=== PATIENT | female | born 1980 | race Caucasian/White ===

== ENCOUNTER 2024-03-27 16:46 | Inpatient (IN) ==
[2024-03-27] MEDS: D5 1/2 NS 1,000 ML 1,000 ML IV SCH (18:31)
[2024-03-27 18:32] VITALS: BMI 26.2
[2024-03-27 19:30] LABS: BASOPHILS # (AUTO) 0.1 X10^3/uL (0.0-0.1); BASOPHILS % (AUTO) 0.8 % (0.2-1.0); EOSINOPHILS # (AUTO) 0.2 x10^3/uL (0.0-0.2); EOSINOPHILS % (AUTO) 2.3 % (0.9-2.9); HEMATOCRIT 32.5 % (36.0-47.0); HEMOGLOBIN 10.5 g/dL (12.0-16.0); LYMPHOCYTES # (AUTO) 1.3 X10^3/uL (1.3-2.9); LYMPHOCYTES % (AUTO) 13.9 % (21.0-51.0); MEAN CORPUSCULAR HGB CONC 32.4 g/dL (33.0-35.0); MEAN CORPUSCULAR VOLUME 80.2 fL (80.0-100.0); MEAN PLATELET VOLUME 9.6 fL (7.4-11.0); MONOCYTES # (AUTO) 0.8 x10^3/uL (0.3-0.8); MONOCYTES % (AUTO) 8.5 % (0.0-13.0); NEUTROPHILS # (AUTO) 7.1 x10^3/uL (2.2-4.8); NEUTROPHILS % (AUTO) 74.5 % (42.0-75.0); PLATELET COUNT 291 X10^3/uL (150.0-450.0); RED BLOOD COUNT 4.05 X10^6/uL (3.5-5.4); RED CELL DISTRIBUTION WIDTH 15.7 % (11.6-16.5); WHITE BLOOD COUNT 9.5 X10^3/uL (3.6-10.0)
[2024-03-27 19:44] LABS: ALANINE AMINOTRANSFERASE 20 Units/L (12-78); ALBUMIN 2.7 g/dL (3.4-5.0); ALKALINE PHOSPHATASE 116 Units/L (46-116); AMYLASE 43 Units/L (25-115); ASPARTATE AMINO TRANSFERASE 9 Units/L (15-37); BLOOD UREA NITROGEN 12 mg/dL (7-18); CALCIUM 8.4 mg/dL (8.5-10.1); CARBON DIOXIDE 26.2 mmol/L (21-32); CHLORIDE 98 mmol/L (98-107); COR CA(FOR HYPOALB) 9.4 mg/dL (8.5-10.1); COR NA(FOR HYPERGLY) 135 mmol/L (136-145); CREATININE 0.95 mg/dL (0.55-1.02); GLUCOSE 129 mg/dL (65-99); LIPASE 38 Units/L (16-77); SODIUM 134 mmol/L (136-145); TOTAL PROTEIN 7.7 g/dL (6.4-8.2); eGFR NON BLACK RACES > 60 (>60)
[2024-03-27 20:15] LABS: BILIRUBIN,URINE NEGATIVE (NEGATIVE); BLOOD/HEMOGLOBIN,URINE NEGATIVE (NEGATIVE); GLUCOSE, URINE NEGATIVE (NEGATIVE); KETONES,URINE NEGATIVE (NEGATIVE); LEUKOCYTE ESTERASE ,URINE NEGATIVE (NEGATIVE); NITRITES,URINE NEGATIVE (NEGATIVE); PROTEIN,URINE 1+ (NEGATIVE); UROBILINOGEN,URINE NORMAL (NORMAL)
[2024-03-27 20:22] LABS: APPEARANCE,URINE HAZY (CLEAR); BACTERIA,URINE TRACE /HPF (NEGATIVE); COARSE GRANULAR CASTS,URINE FEW /HPF (NEGATIVE); COLOR,URINE YELLOW (YELLOW); SQUAMOUS EPITHELIAL CELL,UR FEW /HPF (NEGATIVE)
[2024-03-27] MEDS: ZOSYN VIAL 3.375 GRAMS 3.375 G in NS 100 ML IV 100 ML IV SCH (20:48)
[2024-03-27] MEDS: NS 500 ML IV 500 ML IV ONE (20:49)
[2024-03-28] MEDS: TORADOL 30 MG VIAL IVP PRN (04:15)
[2024-03-28 07:15] LABS: BASOPHILS # (AUTO) 0.1 X10^3/uL (0.0-0.1); BASOPHILS % (AUTO) 0.6 % (0.2-1.0); EOSINOPHILS # (AUTO) 0.3 x10^3/uL (0.0-0.2); EOSINOPHILS % (AUTO) 3.2 % (0.9-2.9); HEMOGLOBIN 10.1 g/dL (12.0-16.0); LYMPHOCYTES % (AUTO) 9.9 % (21.0-51.0); MEAN CORPUSCULAR HEMOGLOBIN 26.3 pg (27.0-34.0); MEAN CORPUSCULAR HGB CONC 32.8 g/dL (33.0-35.0); MEAN CORPUSCULAR VOLUME 80.3 fL (80.0-100.0); MEAN PLATELET VOLUME 10.3 fL (7.4-11.0); MONOCYTES # (AUTO) 1.2 x10^3/uL (0.3-0.8); MONOCYTES % (AUTO) 11.7 % (0.0-13.0); NEUTROPHILS # (AUTO) 7.3 x10^3/uL (2.2-4.8); NEUTROPHILS % (AUTO) 74.6 % (42.0-75.0); PLATELET COUNT 294 X10^3/uL (150.0-450.0); RED BLOOD COUNT 3.86 X10^6/uL (3.5-5.4); RED CELL DISTRIBUTION WIDTH 15.5 % (11.6-16.5); WHITE BLOOD COUNT 9.9 X10^3/uL (3.6-10.0)
[2024-03-28 07:32] LABS: ALANINE AMINOTRANSFERASE 17 Units/L (12-78); ALBUMIN 2.5 g/dL (3.4-5.0); ALKALINE PHOSPHATASE 112 Units/L (46-116); ASPARTATE AMINO TRANSFERASE 8 Units/L (15-37); BLOOD UREA NITROGEN 8 mg/dL (7-18); CALCIUM 8.5 mg/dL (8.5-10.1); CHLORIDE 100 mmol/L (98-107); COR CA(FOR HYPOALB) 9.7 mg/dL (8.5-10.1); CREATININE 0.87 mg/dL (0.55-1.02); GLUCOSE 93 mg/dL (65-99); POTASSIUM 3.7 mmol/L (3.5-5.1); SODIUM 134 mmol/L (136-145); TOTAL PROTEIN 7.2 g/dL (6.4-8.2); eGFR NON BLACK RACES > 60 (>60)
--- NOTE | 2024-03-28 15:56 | DR.PROGNOT ---
HOSPITAL PROGRESS NOTE Progress Note for Day of: Progress Note Date: 03/28/24 Chief Complaint Chief Complaint: Still having low-grade fever and having diffuse abdominal pain, poor appetite, no vomiting today. White count is normal as well as liver function tests Moderate erythema around the drainage site, no necrosis or abscess formation.. Past Medical Family Social History Allergies: Allergies bee pollen Allergy (Severe, Verified 03/25/24 15:42) ANAPHALEXIS REACTION adhesive tape [tape (adhesive)] Allergy (Verified 03/25/24 15:42) rash bee venom protein (honey bee) Allergy (Verified 03/25/24 15:42) ANAPHALEXIS REACTION latex Allergy (Verified 03/25/24 15:42) rash shellfish derived Allergy (Verified 03/25/24 15:42) ANAPHALEXIS REACTION Vital Signs Vital Signs: Vital Signs Temperature 98.4 F Temperature 98.0 F Pulse Rate [Radial] 72 Pulse Rate [Radial] 77 Respiratory Rate 16 Respiratory Rate 18 Respiratory Rate 16 Blood Pressure [Right Arm] 110/64 Blood Pressure [Right Arm] 103/58 O2 Sat by Pulse Oximetry 98 O2 Sat by Pulse Oximetry 97 Physical Exam Oriented: Normal Eyes: Normal Ear: Normal Nose: Normal Throat: Normal Respiratory: Normal Speech Pattern: Clear and Unclear Laboratory and Diagnostics 03/28/24 06:27 03/28/24 06:27 Labs: 03/27/24 19:59 Urine,Clean Catch Urine Culture - Preliminary Laboratory WBC 9.9 X10^3/uL (3.6-10.0) 03/28/24 06: RBC 3.86 X10^6/uL (3.5-5.4) 03/28/24 06:27 Hgb 10.1 g/dL (12.0-16.0) L 03/28/24 06:27 Hct 31.0 % (36.0-47.0) L 03/28/24 06:27 MCV 80.3 fL (80.0-100.0) 03/28/24 06:27 MCH 26.3 pg (27.0-34.0) L 03/28/24 06:27 MCHC 32.8 g/dL (33.0-35.0) L 03/28/24 06:27 RDW 15.5 % (11.6-16.5) 03/28/24 06:27 Plt Count 294 X10^3/uL (150.0-450.0) 03/28/24 06:27 MPV 10.3 fL (7.4-11.0) 03/28/24 06:27 Neut % (Auto) 74.6 % (42.0-75.0) 03/28/24 06:27 Lymph % (Auto) 9.9 % (21.0-51.0) L 03/28/24 06:27 [place] % (Auto) 11.7 % (0.0-13.0) 03/28/24 06:27 Eos % (Auto) 3.2 % (0.9-2.9) H 03/28/24 06:27 Baso % (Auto) 0.6 % (0.2-1.0) 03/28/24 06:27 Neut # (Auto) 7.3 x10^3/uL (2.2-4.8) H 03/28/24 06:27 Lymph # (Auto) 1.0 X10^3/uL (1.3-2.9) L 03/28/24 06:27 [place] # (Auto) 1.2 x10^3/uL (0.3-0.8) H 03/28/24 06:27 Eos # (Auto) 0.3 x10^3/uL (0.0-0.2) H 03/28/24 06:27 Baso # (Auto) 0.1 X10^3/uL (0.0-0.1) 03/28/24 06:27 Absolute Nucleated RBC 0.1 /100WBC 03/28/24 06:27 Sodium 134 mmol/L (136-145) L 03/28/24 06:27 Corrected Sodium TNP 03/28/24 06:27 Potassium 3.7 mmol/L (3.5-5.1) 03/28/24 06:27 Chloride 100 mmol/L (98-107) 03/28/24 06:27 Carbon Dioxide 26.0 mmol/L (21-32) 03/28/24 06:27 BUN 8 mg/dL (7-18) 03/28/24 06:27 Creatinine 0.87 mg/dL (0.55-1.02) 03/28/24 06:27 Est GFR (MDRD) Af Amer > 60 (>60) 03/28/24 06:27 Est GFR (MDRD) Non-Af > 60 (>60) 03/28/24 06:27 Glucose 93 mg/dL (65-99) 03/28/24 06:27 Calcium 8.5 mg/dL (8.5-10.1) 03/28/24 06:27 Corrected Calcium 9.7 mg/dL (8.5-10.1) 03/28/24 06:27 Total Bilirubin 0.40 mg/dL (0.2-1.0) 03/28/24 06:27 AST 8 Units/L (15-37) L 03/28/24 06:27 ALT 17 Units/L (12-78) 03/28/24 06:27 Alkaline Phosphatase 112 Units/L (46-116) 03/28/24 06:27 Total Protein 7.2 g/dL (6.4-8.2) 03/28/24 06:27 Albumin 2.5 g/dL (3.4-5.0) L 03/28/24 06:27 Globulin 4.7 g/dL (2.5-4.5) H 03/28/24 06:27 Albumin/Globulin Ratio 0.5 Ratio (1.1-2.1) L 03/28/24 06:27 Amylase 43 Units/L (25-115) 03/27/24 19:12 Lipase 38 Units/L (16-77) 03/27/24 19:12 Specimen Type Clean catch urine 03/27/24 19:59 Urine Color Yellow (YELLOW) 03/27/24 19:59 Urine Appearance Hazy (CLEAR) 03/27/24 19:59 Urine pH 5.0 (5.0 - 8.0) 03/27/24 19:59 Ur Specific [place] 1.015 (1.000-1.030) 03/27/24 19:59 Urine Protein 1+ (NEGATIVE) 03/27/24 19:59 Urine Glucose (UA) Negative (NEGATIVE) 03/27/24 19:59 Urine Ketones Negative (NEGATIVE) 03/27/24 19:59 Urine Blood Negative (NEGATIVE) 03/27/24 19:59 Urine Nitrite Negative (NEGATIVE) 03/27/24 19:59 Urine Bilirubin Negative (NEGATIVE) 03/27/24 19:59 Urine Urobilinogen Normal (NORMAL) 03/27/24 19:59 Ur Leukocyte Esterase Negative (NEGATIVE) 03/27/24 19:59 Urine RBC 3-5 /HPF (0-3) A 03/27/24 19:59 Urine WBC 0-2 /HPF (0-5) 03/27/24 19:59 Ur Squamous Epith Cells Few /HPF (NEGATIVE) 03/27/24 19:59 Amorphous Sediment 1+ /HPF (NEGATIVE) 03/27/24 19:59 Urine Bacteria Trace /HPF (NEGATIVE) 03/27/24 19:59 Coarse Granular Casts Few /HPF (NEGATIVE) 03/27/24 19:59 Urine Mucus Moderate /HPF (NEGATIVE) 03/27/24 19:59 Ur Culture Indicated? No/not indicated 03/27/24 19:59 SARS-CoV-2 (PCR) Negative (NEGATIVE) 03/27/24 18:25 Influenza Type A (PCR) Negative (NEGATIVE) 03/27/24 18:25 Influenza Type B (PCR) Negative (NEGATIVE) 03/27/24 18:25 RSV (PCR) Negative (NEGATIVE) 03/27/24 18:25 Assessment and Plan 1: Status post ERCP, sphincterotomy and stenting. MICHELLE was removed with subsequent low-grade fever. Moderate cellulitis around the drainage site. Same antibiotics and advance diet.
[2024-03-28] MEDS: ULTRAM PO PRN (17:09)
[2024-03-29 06:49] LABS: BASOPHILS % (AUTO) 0.5 % (0.2-1.0); EOSINOPHILS # (AUTO) 0.5 x10^3/uL (0.0-0.2); EOSINOPHILS % (AUTO) 6.4 % (0.9-2.9); HEMATOCRIT 28.5 % (36.0-47.0); HEMOGLOBIN 9.4 g/dL (12.0-16.0); LYMPHOCYTES # (AUTO) 1.2 X10^3/uL (1.3-2.9); LYMPHOCYTES % (AUTO) 14.8 % (21.0-51.0); MEAN CORPUSCULAR HEMOGLOBIN 26.6 pg (27.0-34.0); MEAN CORPUSCULAR HGB CONC 33.2 g/dL (33.0-35.0); MEAN CORPUSCULAR VOLUME 80.1 fL (80.0-100.0); MEAN PLATELET VOLUME 10.1 fL (7.4-11.0); MONOCYTES % (AUTO) 12.3 % (0.0-13.0); NEUTROPHILS # (AUTO) 5.5 x10^3/uL (2.2-4.8); PLATELET COUNT 243 X10^3/uL (150.0-450.0); RED BLOOD COUNT 3.55 X10^6/uL (3.5-5.4); RED CELL DISTRIBUTION WIDTH 15.4 % (11.6-16.5); WHITE BLOOD COUNT 8.3 X10^3/uL (3.6-10.0)
[2024-03-29 07:06] LABS: ALANINE AMINOTRANSFERASE 15 Units/L (12-78); ALBUMIN 2.1 g/dL (3.4-5.0); ALKALINE PHOSPHATASE 97 Units/L (46-116); ASPARTATE AMINO TRANSFERASE 10 Units/L (15-37); BLOOD UREA NITROGEN 6 mg/dL (7-18); CARBON DIOXIDE 25.5 mmol/L (21-32); CHLORIDE 102 mmol/L (98-107); COR CA(FOR HYPOALB) 9.5 mg/dL (8.5-10.1); CREATININE 0.87 mg/dL (0.55-1.02); GLUCOSE 94 mg/dL (65-99); MAGNESIUM 1.5 mg/dL (2.0-2.9); POTASSIUM 3.4 mmol/L (3.5-5.1); SODIUM 138 mmol/L (136-145); TOTAL PROTEIN 6.5 g/dL (6.4-8.2); eGFR NON BLACK RACES > 60 (>60)
[2024-03-29] MEDS ORDERED: CONSULT PHARMACY - POTASSIUM & MAGNESIUM XX SCH (08:00)
[2024-03-29] MEDS: K-DUR TAB 20 MEQ PO SCH (09:08)
[2024-03-29] MEDS: MAG-OX TAB PO SCH (09:08)
--- NOTE | 2024-03-29 09:18 | DR.PROGNOT ---
HOSPITAL PROGRESS NOTE Progress Note for Day of: Progress Note Date: 03/26/24 Chief Complaint Chief Complaint: having diffuse abdominal pain, poor appetite, no vomiting today. White count is normal as well as liver function tests Moderate erythema around the drainage site, no necrosis or abscess formation.. Past Medical Family Social History Past Med/Fam/Surg Hx: No changes since H&P Allergies: Allergies bee pollen Allergy (Severe, Verified 03/25/24 15:42) ANAPHALEXIS REACTION adhesive tape [tape (adhesive)] Allergy (Verified 03/25/24 15:42) rash bee venom protein (honey bee) Allergy (Verified 03/25/24 15:42) ANAPHALEXIS REACTION latex Allergy (Verified 03/25/24 15:42) rash shellfish derived Allergy (Verified 03/25/24 15:42) ANAPHALEXIS REACTION Vital Signs Vital Signs: Vital Signs Temperature 97.8 F Temperature 98.5 F Pulse Rate [Radial] 55 Pulse Rate [Radial] 66 Respiratory Rate 18 Respiratory Rate 21 Respiratory Rate 20 Respiratory Rate 22 Respiratory Rate 20 Blood Pressure [Right Arm] 106/56 Blood Pressure [Left Arm] 101/56 O2 Sat by Pulse Oximetry 98 O2 Sat by Pulse Oximetry 97 Physical Exam Oriented: Normal Eyes: Normal Ear: Normal Nose: Normal Throat: Normal Respiratory: Normal GI:Auscultation: Other (soft, flat abdomen ,with diffuse tenderness , BS hypoactive .) Speech Pattern: Clear and Appropriate Laboratory and Diagnostics 03/29/24 05:47 03/29/24 05:47 Labs: 03/27/24 19:59 Urine,Clean Catch Urine Culture - Preliminary Laboratory WBC 8.3 X10^3/uL (3.6-10.0) 03/29/24 05:47 RBC 3.55 X10^6/uL (3.5-5.4) 03/29/24 05:47 Hgb 9.4 g/dL (12.0-16.0) L 03/29/24 05:47 Hct 28.5 % (36.0-47.0) L 03/29/24 05:47 MCV 80.1 fL (80.0-100.0) 03/29/24 05:47 MCH 26.6 pg (27.0-34.0) L 03/29/24 05:47 MCHC 33.2 g/dL (33.0-35.0) 03/29/24 05:47 RDW 15.4 % (11.6-16.5) 03/29/24 05:47 Plt Count 243 X10^3/uL (150.0-450.0) 03/29/24 05:47 MPV 10.1 fL (7.4-11.0) 03/29/24 05:47 Neut % (Auto) 66.0 % (42.0-75.0) 03/29/24 05:47 Lymph % (Auto) 14.8 % (21.0-51.0) L 03/29/24 05:47 [place] % (Auto) 12.3 % (0.0-13.0) 03/29/24 05:47 Eos % (Auto) 6.4 % (0.9-2.9) H 03/29/24 05:47 Baso % (Auto) 0.5 % (0.2-1.0) 03/29/24 05:47 Neut # (Auto) 5.5 x10^3/uL (2.2-4.8) H 03/29/24 05:47 Lymph # (Auto) 1.2 X10^3/uL (1.3-2.9) L 03/29/24 05:47 [place] # (Auto) 1.0 x10^3/uL (0.3-0.8) H 03/29/24 05:47 Eos # (Auto) 0.5 x10^3/uL (0.0-0.2) H 03/29/24 05:47 Baso # (Auto) 0.0 X10^3/uL (0.0-0.1) 03/29/24 05:47 Absolute Nucleated RBC 0.0 /100WBC 03/29/24 05:47 Sodium 138 mmol/L (136-145) 03/29/24 05:47 Corrected Sodium TNP 03/29/24 05:47 Potassium 3.4 mmol/L (3.5-5.1) L 03/29/24 05:47 Chloride 102 mmol/L (98-107) 03/29/24 05:47 Carbon Dioxide 25.5 mmol/L (21-32) 03/29/24 05:47 BUN 6 mg/dL (7-18) L 03/29/24 05:47 Creatinine 0.87 mg/dL (0.55-1.02) 03/29/24 05:47 Est GFR (MDRD) Af Amer > 60 (>60) 03/29/24 05:47 Est GFR (MDRD) Non-Af > 60 (>60) 03/29/24 05:47 Glucose 94 mg/dL (65-99) 03/29/24 05:47 Calcium 8.0 mg/dL (8.5-10.1) L 03/29/24 05:47 Corrected Calcium 9.5 mg/dL (8.5-10.1) 03/29/24 05:47 Magnesium 1.5 mg/dL (2.0-2.9) L 03/29/24 05:47 Total Bilirubin 0.20 mg/dL (0.2-1.0) 03/29/24 05:47 AST 10 Units/L (15-37) L 03/29/24 05:47 ALT 15 Units/L (12-78) 03/29/24 05:47 Alkaline Phosphatase 97 Units/L (46-116) 03/29/24 05:47 Total Protein 6.5 g/dL (6.4-8.2) 03/29/24 05:47 Albumin 2.1 g/dL (3.4-5.0) L 03/29/24 05:47 Globulin 4.4 g/dL (2.5-4.5) 03/29/24 05:47 Albumin/Globulin Ratio 0.5 Ratio (1.1-2.1) L 03/29/24 05:47 Amylase 43 Units/L (25-115) 03/27/24 19:12 Lipase 38 Units/L (16-77) 03/27/24 19:12 Specimen Type Clean catch urine 03/27/24 19:59 Urine Color Yellow (YELLOW) 03/27/24 19:59 Urine Appearance Hazy (CLEAR) 03/27/24 19:59 Urine pH 5.0 (5.0 - 8.0) 03/27/24 19:59 Ur Specific Ages [place] 1.015 (1.000-1.030) 03/27/24 19:59 Urine Protein 1+ (NEGATIVE) 03/27/24 19:59 Urine Glucose (UA) Negative (NEGATIVE) 03/27/24 19:59 Urine Ketones Negative (NEGATIVE) 03/27/24 19:59 Urine Blood Negative (NEGATIVE) 03/27/24 19:59 Urine Nitrite Negative (NEGATIVE) 03/27/24 19:59 Urine Bilirubin Negative (NEGATIVE) 03/27/24 19:59 Urine Urobilinogen Normal (NORMAL) 03/27/24 19:59 Ur Leukocyte Esterase Negative (NEGATIVE) 03/27/24 19:59 Urine RBC 3-5 /HPF (0-3) A 03/27/24 19:59 Urine WBC 0-2 /HPF (0-5) 03/27/24 19:59 Ur Squamous Epith Cells Few /HPF (NEGATIVE) 03/27/24 19:59 Amorphous Sediment 1+ /HPF (NEGATIVE) 03/27/24 19:59 Urine Bacteria Trace /HPF (NEGATIVE) 03/27/24 19:59 Coarse Granular Casts Few /HPF (NEGATIVE) 03/27/24 19:59 Urine Mucus Moderate /HPF (NEGATIVE) 03/27/24 19:59 Ur Culture Indicated? No/not indicated 03/27/24 19:59 SARS-CoV-2 (PCR) Negative (NEGATIVE) 03/27/24 18:25 Influenza Type A (PCR) Negative (NEGATIVE) 03/27/24 18:25 Influenza Type B (PCR) Negative (NEGATIVE) 03/27/24 18:25 RSV (PCR) Negative (NEGATIVE) 03/27/24 18:25 Assessment and Plan 1: Status post ERCP, sphincterotomy and stenting. MICHELLE was removed with subsequent low-grade fever. Moderate cellulitis around the drainage site. Same antibiotics. repeat U/A today .
[2024-03-30 05:55] LABS: BASOPHILS % (AUTO) 0.5 % (0.2-1.0); EOSINOPHILS # (AUTO) 0.5 x10^3/uL (0.0-0.2); EOSINOPHILS % (AUTO) 6.8 % (0.9-2.9); HEMATOCRIT 27.5 % (36.0-47.0); HEMOGLOBIN 9.1 g/dL (12.0-16.0); LYMPHOCYTES # (AUTO) 1.5 X10^3/uL (1.3-2.9); LYMPHOCYTES % (AUTO) 21.8 % (21.0-51.0); MEAN CORPUSCULAR HEMOGLOBIN 26.4 pg (27.0-34.0); MEAN PLATELET VOLUME 9.7 fL (7.4-11.0); MONOCYTES # (AUTO) 0.7 x10^3/uL (0.3-0.8); MONOCYTES % (AUTO) 10.5 % (0.0-13.0); NEUTROPHILS # (AUTO) 4.2 x10^3/uL (2.2-4.8); NEUTROPHILS % (AUTO) 60.4 % (42.0-75.0); PLATELET COUNT 261 X10^3/uL (150.0-450.0); RED BLOOD COUNT 3.44 X10^6/uL (3.5-5.4); RED CELL DISTRIBUTION WIDTH 15.6 % (11.6-16.5)
[2024-03-30 06:09] LABS: ALANINE AMINOTRANSFERASE 15 Units/L (12-78); ALBUMIN 2.1 g/dL (3.4-5.0); ALKALINE PHOSPHATASE 103 Units/L (46-116); ASPARTATE AMINO TRANSFERASE 11 Units/L (15-37); BLOOD UREA NITROGEN 3 mg/dL (7-18); CALCIUM 8.2 mg/dL (8.5-10.1); CARBON DIOXIDE 27.1 mmol/L (21-32); CHLORIDE 104 mmol/L (98-107); COR CA(FOR HYPOALB) 9.7 mg/dL (8.5-10.1); CREATININE 0.78 mg/dL (0.55-1.02); GLUCOSE 91 mg/dL (65-99); MAGNESIUM 1.8 mg/dL (2.0-2.9); POTASSIUM 3.7 mmol/L (3.5-5.1); SODIUM 136 mmol/L (136-145); TOTAL PROTEIN 6.6 g/dL (6.4-8.2); eGFR NON BLACK RACES > 60 (>60)
[2024-03-30] MEDS ORDERED: CONSULT PHARMACY - POTASSIUM & MAGNESIUM XX SCH (07:00)
[2024-03-30] MEDS: K-DUR TAB 20 MEQ PO SCH (09:17)
[2024-03-30] MEDS: MAG-OX TAB PO SCH (09:17)
--- NOTE | 2024-03-30 10:11 | DR.PROGNOT ---
HOSPITAL PROGRESS NOTE Progress Note for Day of: Progress Note Date: 03/30/24 Chief Complaint Chief Complaint: having diffuse abdominal pain, poor appetite, nausea but no vomiting. White count is normal . Hemoglobin is 9.1 normal liver function tests Moderate erythema around the drainage site with mild drainage. No necrosis or abscess formation.. Drainage culture showed gram-positive cocci pending final report. Past Medical Family Social History Past Med/Fam/Surg Hx: No changes since H&P Allergies: Allergies bee pollen Allergy (Severe, Verified 03/25/24 15:42) ANAPHALEXIS REACTION adhesive tape [tape (adhesive)] Allergy (Verified 03/25/24 15:42) rash bee venom protein (honey bee) Allergy (Verified 03/25/24 15:42) ANAPHALEXIS REACTION latex Allergy (Verified 03/25/24 15:42) rash shellfish derived Allergy (Verified 03/25/24 15:42) ANAPHALEXIS REACTION Vital Signs Vital Signs: Vital Signs Temperature 98.0 F Temperature 97.8 F Pulse Rate [Radial] 74 Pulse Rate [Radial] 61 Respiratory Rate 21 Respiratory Rate 21 Respiratory Rate 18 Respiratory Rate 19 Respiratory Rate 21 Blood Pressure [Left Arm] 119/74 Blood Pressure [Left Arm] 112/69 O2 Sat by Pulse Oximetry 98 O2 Sat by Pulse Oximetry 98 Physical Exam Oriented: Normal Eyes: Normal Ear: Normal Nose: Normal Throat: Normal Respiratory: Normal GI:Auscultation: Other (soft, flat abdomen ,with diffuse tenderness , BS hypoactive .) Speech Pattern: Clear and Appropriate Laboratory and Diagnostics 03/30/24 05:41 03/30/24 05:41 Labs: 03/29/24 22:35 Abdomen Wound Gram Stain - Final 03/27/24 19:20 Blood Blood Culture - Preliminary 03/27/24 19:12 Blood Blood Culture - Preliminary 03/27/24 19:59 Urine,Clean Catch Urine Culture - Final Laboratory WBC 7.0 X10^3/uL (3.6-10.0) 03/30/24 05:41 RBC 3.44 X10^6/uL (3.5-5.4) L 03/30/24 05:41 Hgb 9.1 g/dL (12.0-16.0) L 03/30/24 05:41 Hct 27.5 % (36.0-47.0) L 03/30/24 05:41 MCV 80.0 fL (80.0-100.0) 03/30/24 05:41 MCH 26.4 pg (27.0-34.0) L 03/30/24 05:41 MCHC 33.0 g/dL (33.0-35.0) 03/30/24 05:41 RDW 15.6 % (11.6-16.5) 03/30/24 05:41 Plt Count 261 X10^3/uL (150.0-450.0) 03/30/24 05:41 MPV 9.7 fL (7.4-11.0) 03/30/24 05:41 Neut % (Auto) 60.4 % (42.0-75.0) 03/30/24 05:41 Lymph % (Auto) 21.8 % (21.0-51.0) 03/30/24 05:41 [place] % (Auto) 10.5 % (0.0-13.0) 03/30/24 05:41 Eos % (Auto) 6.8 % (0.9-2.9) H 03/30/24 05:41 Baso % (Auto) 0.5 % (0.2-1.0) 03/30/24 05:41 Neut # (Auto) 4.2 x10^3/uL (2.2-4.8) 03/30/24 05:41 Lymph # (Auto) 1.5 X10^3/uL (1.3-2.9) 03/30/24 05:41 [place] # (Auto) 0.7 x10^3/uL (0.3-0.8) 03/30/24 05:41 Eos # (Auto) 0.5 x10^3/uL (0.0-0.2) H 03/30/24 05:41 Baso # (Auto) 0.0 X10^3/uL (0.0-0.1) 03/30/24 05:41 Absolute Nucleated RBC 0.1 /100WBC 03/30/24 05:41 Sodium 136 mmol/L (136-145) 03/30/24 05:41 Corrected Sodium TNP 03/30/24 05:41 Potassium 3.7 mmol/L (3.5-5.1) 03/30/24 05:41 Chloride 104 mmol/L (98-107) 03/30/24 05:41 Carbon Dioxide 27.1 mmol/L (21-32) 03/30/24 05:41 BUN 3 mg/dL (7-18) L 03/30/24 05:41 Creatinine 0.78 mg/dL (0.55-1.02) 03/30/24 05:41 Est GFR (MDRD) Af Amer > 60 (>60) 03/30/24 05:41 Est GFR (MDRD) Non-Af > 60 (>60) 03/30/24 05:41 Glucose 91 mg/dL (65-99) 03/30/24 05:41 Calcium 8.2 mg/dL (8.5-10.1) L 03/30/24 05:41 Corrected Calcium 9.7 mg/dL (8.5-10.1) 03/30/24 05:41 Magnesium 1.8 mg/dL (2.0-2.9) L 03/30/24 05:41 Total Bilirubin 0.10 mg/dL (0.2-1.0) L 03/30/24 05:41 AST 11 Units/L (15-37) L 03/30/24 05:41 ALT 15 Units/L (12-78) 03/30/24 05:41 Alkaline Phosphatase 103 Units/L (46-116) 03/30/24 05:41 Total Protein 6.6 g/dL (6.4-8.2) 03/30/24 05:41 Albumin 2.1 g/dL (3.4-5.0) L 03/30/24 05:41 Globulin 4.5 g/dL (2.5-4.5) 03/30/24 05:41 Albumin/Globulin Ratio 0.5 Ratio (1.1-2.1) L 03/30/24 05:41 Amylase 43 Units/L (25-115) 03/27/24 19:12 Lipase 38 Units/L (16-77) 03/27/24 19:12 Specimen Type Clean catch urine 03/27/24 19:59 Urine Color Yellow (YELLOW) 03/27/24 19:59 Urine Appearance Hazy (CLEAR) 03/27/24 19:59 Urine pH 5.0 (5.0 - 8.0) 03/27/24 19:59 Ur Specific [place] 1.015 (1.000-1.030) 03/27/24 19:59 Urine Protein 1+ (NEGATIVE) 03/27/24 19:59 Urine Glucose (UA) Negative (NEGATIVE) 03/27/24 19:59 Urine Ketones Negative (NEGATIVE) 03/27/24 19:59 Urine Blood Negative (NEGATIVE) 03/27/24 19:59 Urine Nitrite Negative (NEGATIVE) 03/27/24 19:59 Urine Bilirubin Negative (NEGATIVE) 03/27/24 19:59 Urine Urobilinogen Normal (NORMAL) 03/27/24 19:59 Ur Leukocyte Esterase Negative (NEGATIVE) 03/27/24 19:59 Urine RBC 3-5 /HPF (0-3) A 03/27/24 19:59 Urine WBC 0-2 /HPF (0-5) 03/27/24 19:59 Ur Squamous Epith Cells Few /HPF (NEGATIVE) 03/27/24 19:59 Amorphous Sediment 1+ /HPF (NEGATIVE) 03/27/24 19:59 Urine Bacteria Trace /HPF (NEGATIVE) 03/27/24 19:59 Coarse Granular Casts Few /HPF (NEGATIVE) 03/27/24 19:59 Urine Mucus Moderate /HPF (NEGATIVE) 03/27/24 19:59 Ur Culture Indicated? No/not indicated 03/27/24 19:59 SARS-CoV-2 (PCR) Negative (NEGATIVE) 03/27/24 18:25 Influenza Type A (PCR) Negative (NEGATIVE) 03/27/24 18:25 Influenza Type B (PCR) Negative (NEGATIVE) 03/27/24 18:25 RSV (PCR) Negative (NEGATIVE) 03/27/24 18:25 Assessment and Plan 1: Status post ERCP, sphincterotomy and stenting. Moderate cellulitis around the drainage site. Same antibiotics. repeat U/A today .
[2024-03-30 13:10] LABS: BILIRUBIN,URINE NEGATIVE (NEGATIVE); BLOOD/HEMOGLOBIN,URINE 5+ (NEGATIVE); GLUCOSE, URINE NEGATIVE (NEGATIVE); KETONES,URINE NEGATIVE (NEGATIVE); LEUKOCYTE ESTERASE ,URINE NEGATIVE (NEGATIVE); NITRITES,URINE NEGATIVE (NEGATIVE); PROTEIN,URINE NEGATIVE (NEGATIVE); UROBILINOGEN,URINE NORMAL (NORMAL)
[2024-03-30 13:18] LABS: APPEARANCE,URINE SLIGHTLY HAZY (CLEAR); COLOR,URINE PALE YELLOW (YELLOW)
[2024-03-30 13:19] LABS: BACTERIA,URINE TRACE /HPF (NEGATIVE); RBC,URINE TNTC /HPF (0-3); SQUAMOUS EPITHELIAL CELL,UR RARE /HPF (NEGATIVE)
[2024-03-30] MEDS: LOMOTIL PO PRN (15:33)
[2024-03-30] MEDS: ZOFRAN INJ 4 MG VIAL IVP PRN (15:34)
[2024-03-30] MEDS: TYLENOL 325 MG TAB PO PRN (22:02)
[2024-03-31] MEDS: NS 250 ML IV 25 ML IV PRN (05:05)
[2024-03-31 06:25] LABS: BASOPHILS # (AUTO) 0.1 X10^3/uL (0.0-0.1); BASOPHILS % (AUTO) 0.8 % (0.2-1.0); EOSINOPHILS # (AUTO) 0.5 x10^3/uL (0.0-0.2); EOSINOPHILS % (AUTO) 8.2 % (0.9-2.9); HEMATOCRIT 27.2 % (36.0-47.0); HEMOGLOBIN 8.9 g/dL (12.0-16.0); LYMPHOCYTES # (AUTO) 1.5 X10^3/uL (1.3-2.9); MEAN CORPUSCULAR HEMOGLOBIN 26.3 pg (27.0-34.0); MEAN CORPUSCULAR HGB CONC 32.8 g/dL (33.0-35.0); MEAN CORPUSCULAR VOLUME 80.2 fL (80.0-100.0); MEAN PLATELET VOLUME 10.2 fL (7.4-11.0); MONOCYTES # (AUTO) 0.7 x10^3/uL (0.3-0.8); MONOCYTES % (AUTO) 10.6 % (0.0-13.0); NEUTROPHILS # (AUTO) 3.8 x10^3/uL (2.2-4.8); NEUTROPHILS % (AUTO) 57.4 % (42.0-75.0); PLATELET COUNT 273 X10^3/uL (150.0-450.0); RED BLOOD COUNT 3.39 X10^6/uL (3.5-5.4); RED CELL DISTRIBUTION WIDTH 15.3 % (11.6-16.5); WHITE BLOOD COUNT 6.6 X10^3/uL (3.6-10.0)
[2024-03-31 06:34] LABS: ALANINE AMINOTRANSFERASE 15 Units/L (12-78); ALBUMIN 2.2 g/dL (3.4-5.0); ALKALINE PHOSPHATASE 114 Units/L (46-116); ASPARTATE AMINO TRANSFERASE 12 Units/L (15-37); BLOOD UREA NITROGEN 2 mg/dL (7-18); CALCIUM 8.1 mg/dL (8.5-10.1); CHLORIDE 102 mmol/L (98-107); COR CA(FOR HYPOALB) 9.5 mg/dL (8.5-10.1); CREATININE 0.84 mg/dL (0.55-1.02); GLUCOSE 84 mg/dL (65-99); MAGNESIUM 1.9 mg/dL (2.0-2.9); POTASSIUM 3.4 mmol/L (3.5-5.1); SODIUM 135 mmol/L (136-145); TOTAL PROTEIN 6.7 g/dL (6.4-8.2); eGFR NON BLACK RACES > 60 (>60)
[2024-03-31] MEDS ORDERED: CONSULT PHARMACY - POTASSIUM & MAGNESIUM XX SCH (07:00)
[2024-03-31] MEDS: MAG-OX TAB PO SCH (08:21)
[2024-03-31] MEDS: K-DUR TAB 20 MEQ PO SCH (08:21)
--- NOTE | 2024-03-31 10:03 | DR.PROGNOT ---
HOSPITAL PROGRESS NOTE Progress Note for Day of: Progress Note Date: 03/31/24 Chief Complaint Chief Complaint: having diffuse abdominal pain, poor appetite, nausea but no vomiting. drainage from RUQ is positive for MRSA .. White count is normal 6.6. Hemoglobin is 8.9 normal liver function tests.K 3.4.. MG 1.9 Moderate erythema around the drainage site with mild drainage. No necrosis or abscess formation.. Past Medical Family Social History Past Med/Fam/Surg Hx: No changes since H&P Allergies: Allergies bee pollen Allergy (Severe, Verified 03/25/24 15:42) ANAPHALEXIS REACTION adhesive tape [tape (adhesive)] Allergy (Verified 03/25/24 15:42) rash bee venom protein (honey bee) Allergy (Verified 03/25/24 15:42) ANAPHALEXIS REACTION latex Allergy (Verified 03/25/24 15:42) rash shellfish derived Allergy (Verified 03/25/24 15:42) ANAPHALEXIS REACTION Vital Signs Vital Signs: Vital Signs Temperature 97.8 F Temperature 98.2 F Pulse Rate [Radial] 69 Pulse Rate [Radial] 97 Respiratory Rate 18 Respiratory Rate 19 Respiratory Rate 21 Respiratory Rate 21 Blood Pressure [Left Arm] 119/72 Blood Pressure [Left Arm] 103/65 O2 Sat by Pulse Oximetry 96 O2 Sat by Pulse Oximetry 100 Physical Exam Oriented: Normal Eyes: Normal Ear: Normal Nose: Normal Throat: Normal Respiratory: Normal GI:Auscultation: Other (soft, flat abdomen ,with diffuse tenderness , BS hypoactive .) Speech Pattern: Clear and Appropriate Laboratory and Diagnostics 03/31/24 05:27 03/31/24 05:27 Labs: 03/29/24 22:35 Abdomen Wound Gram Stain - Final 03/29/24 22:35 Abdomen Wound Culture - Preliminary Methicillin Resis Staph Aureus 03/27/24 19:20 Blood Blood Culture - Preliminary 03/27/24 19:12 Blood Blood Culture - Preliminary 03/27/24 19:59 Urine,Clean Catch Urine Culture - Final Laboratory WBC 6.6 X10^3/uL (3.6-10.0) 03/31/24 05:27 RBC 3.39 X10^6/uL (3.5-5.4) L 03/31/24 05:27 Hgb 8.9 g/dL (12.0-16.0) L 03/31/24 05:27 Hct 27.2 % (36.0-47.0) L 03/31/24 05:27 MCV 80.2 fL (80.0-100.0) 03/31/24 05:27 MCH 26.3 pg (27.0-34.0) L 03/31/24 05:27 MCHC 32.8 g/dL (33.0-35.0) L 03/31/24 05:27 RDW 15.3 % (11.6-16.5) 03/31/24 05:27 Plt Count 273 X10^3/uL (150.0-450.0) 03/31/24 05:27 MPV 10.2 fL (7.4-11.0) 03/31/24 05:27 Neut % (Auto) 57.4 % (42.0-75.0) 03/31/24 05:27 Lymph % (Auto) 23.0 % (21.0-51.0) 03/31/24 05:27 [place] % (Auto) 10.6 % (0.0-13.0) 03/31/24 05:27 Eos % (Auto) 8.2 % (0.9-2.9) H 03/31/24 05:27 Baso % (Auto) 0.8 % (0.2-1.0) 03/31/24 05:27 Neut # (Auto) 3.8 x10^3/uL (2.2-4.8) 03/31/24 05:27 Lymph # (Auto) 1.5 X10^3/uL (1.3-2.9) 03/31/24 05:27 [place] # (Auto) 0.7 x10^3/uL (0.3-0.8) 03/31/24 05:27 Eos # (Auto) 0.5 x10^3/uL (0.0-0.2) H 03/31/24 05:27 Baso # (Auto) 0.1 X10^3/uL (0.0-0.1) 03/31/24 05:27 Absolute Nucleated RBC 0.0 /100WBC 03/31/24 05:27 Sodium 135 mmol/L (136-145) L 03/31/24 05:27 Corrected Sodium TNP 03/31/24 05:27 Potassium 3.4 mmol/L (3.5-5.1) L 03/31/24 05:27 Chloride 102 mmol/L (98-107) 03/31/24 05:27 Carbon Dioxide 28.0 mmol/L (21-32) 03/31/24 05:27 BUN 2 mg/dL (7-18) L 03/31/24 05:27 Creatinine 0.84 mg/dL (0.55-1.02) 03/31/24 05:27 Est GFR (MDRD) Af Amer > 60 (>60) 03/31/24 05:27 Est GFR (MDRD) Non-Af > 60 (>60) 03/31/24 05:27 Glucose 84 mg/dL (65-99) 03/31/24 05:27 Calcium 8.1 mg/dL (8.5-10.1) L 03/31/24 05:27 Corrected Calcium 9.5 mg/dL (8.5-10.1) 03/31/24 05:27 Magnesium 1.9 mg/dL (2.0-2.9) L 03/31/24 05:27 Total Bilirubin 0.20 mg/dL (0.2-1.0) 03/31/24 05:27 AST 12 Units/L (15-37) L 03/31/24 05:27 ALT 15 Units/L (12-78) 03/31/24 05:27 Alkaline Phosphatase 114 Units/L (46-116) 03/31/24 05:27 Total Protein 6.7 g/dL (6.4-8.2) 03/31/24 05:27 Albumin 2.2 g/dL (3.4-5.0) L 03/31/24 05:27 Globulin 4.5 g/dL (2.5-4.5) 03/31/24 05:27 Albumin/Globulin Ratio 0.5 Ratio (1.1-2.1) L 03/31/24 05:27 Amylase 43 Units/L (25-115) 03/27/24 19:12 Lipase 38 Units/L (16-77) 03/27/24 19:12 Specimen Type Clean catch urine 03/30/24 12:44 Urine Color Pale yellow (YELLOW) 03/30/24 12:44 Urine Appearance Slightly hazy (CLEAR) 03/30/24 12:44 Urine pH 7.0 (5.0 - 8.0) 03/30/24 12:44 Ur Specific [place] 1.010 (1.000-1.030) 03/30/24 12:44 Urine Protein Negative (NEGATIVE) 03/30/24 12:44 Urine Glucose (UA) Negative (NEGATIVE) 03/30/24 12:44 Urine Ketones Negative (NEGATIVE) 03/30/24 12:44 Urine Blood 5+ (NEGATIVE) 03/30/24 12:44 Urine Nitrite Negative (NEGATIVE) 03/30/24 12:44 Urine Bilirubin Negative (NEGATIVE) 03/30/24 12:44 Urine Urobilinogen Normal (NORMAL) 03/30/24 12:44 Ur Leukocyte Esterase Negative (NEGATIVE) 03/30/24 12:44 Urine RBC Tntc /HPF (0-3) A 03/30/24 12:44 Urine WBC None seen /HPF (0-5) 03/30/24 12:44 Ur Squamous Epith Cells Rare /HPF (NEGATIVE) 03/30/24 12:44 Amorphous Sediment 1+ /HPF (NEGATIVE) 03/27/24 19:59 Urine Bacteria Trace /HPF (NEGATIVE) 03/30/24 12:44 Coarse Granular Casts Few /HPF (NEGATIVE) 03/27/24 19:59 Urine Mucus Moderate /HPF (NEGATIVE) 03/27/24 19:59 Ur Culture Indicated? No/not indicated 03/30/24 12:44 SARS-CoV-2 (PCR) Negative (NEGATIVE) 03/27/24 18:25 Influenza Type A (PCR) Negative (NEGATIVE) 03/27/24 18:25 Influenza Type B (PCR) Negative (NEGATIVE) 03/27/24 18:25 RSV (PCR) Negative (NEGATIVE) 03/27/24 18:25 Assessment and Plan 1: Status post ERCP, sphincterotomy and stenting. MRSA with Moderate cellulitis around the drainage site. on IV Clindamycin .
[2024-03-31] MEDS: CLEOCIN 600 MG IV PREMIX 600 MG/50 ML BAG IV SCH (10:23)
[2024-03-31] MEDS: VSL#3 PROBIOTIC CAP 112.5 B PO SCH (21:01)
[2024-04-01 06:38] LABS: BASOPHILS % (AUTO) 0.7 % (0.2-1.0); EOSINOPHILS # (AUTO) 0.7 x10^3/uL (0.0-0.2); EOSINOPHILS % (AUTO) 9.4 % (0.9-2.9); HEMATOCRIT 28.1 % (36.0-47.0); HEMOGLOBIN 9.4 g/dL (12.0-16.0); LYMPHOCYTES # (AUTO) 1.7 X10^3/uL (1.3-2.9); LYMPHOCYTES % (AUTO) 23.5 % (21.0-51.0); MEAN CORPUSCULAR HEMOGLOBIN 26.6 pg (27.0-34.0); MEAN CORPUSCULAR HGB CONC 33.4 g/dL (33.0-35.0); MEAN CORPUSCULAR VOLUME 79.5 fL (80.0-100.0); MEAN PLATELET VOLUME 10.1 fL (7.4-11.0); MONOCYTES # (AUTO) 0.6 x10^3/uL (0.3-0.8); MONOCYTES % (AUTO) 8.4 % (0.0-13.0); NEUTROPHILS # (AUTO) 4.1 x10^3/uL (2.2-4.8); PLATELET COUNT 277 X10^3/uL (150.0-450.0); RED BLOOD COUNT 3.54 X10^6/uL (3.5-5.4); RED CELL DISTRIBUTION WIDTH 15.3 % (11.6-16.5)
[2024-04-01 06:50] LABS: ALANINE AMINOTRANSFERASE 19 Units/L (12-78); ALBUMIN 2.3 g/dL (3.4-5.0); ALKALINE PHOSPHATASE 121 Units/L (46-116); ASPARTATE AMINO TRANSFERASE 17 Units/L (15-37); BLOOD UREA NITROGEN 3 mg/dL (7-18); CALCIUM 8.3 mg/dL (8.5-10.1); CHLORIDE 101 mmol/L (98-107); COR CA(FOR HYPOALB) 9.7 mg/dL (8.5-10.1); CREATININE 0.82 mg/dL (0.55-1.02); GLUCOSE 87 mg/dL (65-99); MAGNESIUM 2.1 mg/dL (2.0-2.9); POTASSIUM 3.7 mmol/L (3.5-5.1); SODIUM 135 mmol/L (136-145); eGFR NON BLACK RACES > 60 (>60)
[2024-04-01] MEDS ORDERED: CONSULT PHARMACY - POTASSIUM & MAGNESIUM XX SCH (08:00)
[2024-04-01] MEDS ORDERED: POTASSIUM CHLORIDE LIQ PO SCH (08:00)
[2024-04-01] MEDS ORDERED: K-DUR TAB 20 MEQ PO SCH (08:00)
--- NOTE | 2024-04-01 17:03 | DR.PROGNOT ---
HOSPITAL PROGRESS NOTE Progress Note for Day of: Progress Note Date: 04/01/24 Chief Complaint Chief Complaint: Still having diffuse abdominal pain, poor appetite, nausea but no vomiting. drainage from RUQ is positive for MRSA .. White count is normal 7 Hemoglobin is 9.4 normal liver function tests.K 3.4.. MG 1.[address] scan is pending Moderate erythema around the drainage site with mild drainage. No necrosis or abscess formation.. Past Medical Family Social History Past Med/Fam/Surg Hx: No changes since H&P Allergies: Allergies bee pollen Allergy (Severe, Verified 03/25/24 15:42) ANAPHALEXIS REACTION adhesive tape [tape (adhesive)] Allergy (Verified 03/25/24 15:42) rash bee venom protein (honey bee) Allergy (Verified 03/25/24 15:42) ANAPHALEXIS REACTION latex Allergy (Verified 03/25/24 15:42) rash shellfish derived Allergy (Verified 03/25/24 15:42) ANAPHALEXIS REACTION Vital Signs Vital Signs: Vital Signs Temperature 97.6 F Pulse Rate [Radial] 71 Respiratory Rate 18 Respiratory Rate 18 Blood Pressure [Left Arm] 145/83 O2 Sat by Pulse Oximetry 98 Physical Exam Oriented: Normal Eyes: Normal Ear: Normal Nose: Normal Throat: Normal Respiratory: Normal GI:Auscultation: Other (soft, flat abdomen ,with diffuse tenderness , BS hypoactive .) Speech Pattern: Clear and Appropriate Laboratory and Diagnostics 04/01/24 05:23 04/01/24 05:23 Labs: 03/29/24 22:35 Abdomen Wound Gram Stain - Final 03/29/24 22:35 Abdomen Wound Culture - Final Methicillin Resis Staph Aureus Acinetobacter Baumanii/Haemoly 03/27/24 19:20 Blood Blood Culture - Preliminary 03/27/24 19:12 Blood Blood Culture - Preliminary 03/27/24 19:59 Urine,Clean Catch Urine Culture - Final Laboratory WBC 7.0 X10^3/uL (3.6-10.0) 04/01/24 05:23 RBC 3.54 X10^6/uL (3.5-5.4) 04/01/24 05:23 Hgb 9.4 g/dL (12.0-16.0) L 04/01/24 05:23 Hct 28.1 % (36.0-47.0) L 04/01/24 05:23 MCV 79.5 fL (80.0-100.0) L 04/01/24 05:23 MCH 26.6 pg (27.0-34.0) L 04/01/24 05:23 MCHC 33.4 g/dL (33.0-35.0) 04/01/24 05:23 RDW 15.3 % (11.6-16.5) 04/01/24 05:23 Plt Count 277 X10^3/uL (150.0-450.0) 04/01/24 05:23 MPV 10.1 fL (7.4-11.0) 04/01/24 05:23 Neut % (Auto) 58.0 % (42.0-75.0) 04/01/24 05:23 Lymph % (Auto) 23.5 % (21.0-51.0) 04/01/24 05:23 [place] % (Auto) 8.4 % (0.0-13.0) 04/01/24 05:23 Eos % (Auto) 9.4 % (0.9-2.9) H 04/01/24 05:23 Baso % (Auto) 0.7 % (0.2-1.0) 04/01/24 05:23 Neut # (Auto) 4.1 x10^3/uL (2.2-4.8) 04/01/24 05:23 Lymph # (Auto) 1.7 X10^3/uL (1.3-2.9) 04/01/24 05:23 [place] # (Auto) 0.6 x10^3/uL (0.3-0.8) 04/01/24 05:23 Eos # (Auto) 0.7 x10^3/uL (0.0-0.2) H 04/01/24 05:23 Baso # (Auto) 0.0 X10^3/uL (0.0-0.1) 04/01/24 05:23 Absolute Nucleated RBC 0.1 /100WBC 04/01/24 05:23 Sodium 135 mmol/L (136-145) L 04/01/24 05:23 Corrected Sodium TNP 04/01/24 05:23 Potassium 3.7 mmol/L (3.5-5.1) 04/01/24 05:23 Chloride 101 mmol/L (98-107) 04/01/24 05:23 Carbon Dioxide 26.0 mmol/L (21-32) 04/01/24 05:23 BUN 3 mg/dL (7-18) L 04/01/24 05:23 Creatinine 0.82 mg/dL (0.55-1.02) 04/01/24 05:23 Est GFR (MDRD) Af Amer > 60 (>60) 04/01/24 05:23 Est GFR (MDRD) Non-Af > 60 (>60) 04/01/24 05:23 Glucose 87 mg/dL (65-99) 04/01/24 05:23 Calcium 8.3 mg/dL (8.5-10.1) L 04/01/24 05:23 Corrected Calcium 9.7 mg/dL (8.5-10.1) 04/01/24 05:23 Magnesium 2.1 mg/dL (2.0-2.9) 04/01/24 05:23 Total Bilirubin 0.10 mg/dL (0.2-1.0) L 04/01/24 05:23 AST 17 Units/L (15-37) 04/01/24 05:23 ALT 19 Units/L (12-78) 04/01/24 05:23 Alkaline Phosphatase 121 Units/L (46-116) H 04/01/24 05:23 Total Protein 7.0 g/dL (6.4-8.2) 04/01/24 05:23 Albumin 2.3 g/dL (3.4-5.0) L 04/01/24 05:23 Globulin 4.7 g/dL (2.5-4.5) H 04/01/24 05:23 Albumin/Globulin Ratio 0.5 Ratio (1.1-2.1) L 04/01/24 05:23 Amylase 43 Units/L (25-115) 03/27/24 19:12 Lipase 38 Units/L (16-77) 03/27/24 19:12 Specimen Type Clean catch urine 03/30/24 12:44 Urine Color Pale yellow (YELLOW) 03/30/24 12:44 Urine Appearance Slightly hazy (CLEAR) 03/30/24 12:44 Urine pH 7.0 (5.0 - 8.0) 03/30/24 12:44 Ur Specific [place] 1.010 (1.000-1.030) 03/30/24 12:44 Urine Protein Negative (NEGATIVE) 03/30/24 12:44 Urine Glucose (UA) Negative (NEGATIVE) 03/30/24 12:44 Urine Ketones Negative (NEGATIVE) 03/30/24 12:44 Urine Blood 5+ (NEGATIVE) 03/30/24 12:44 Urine Nitrite Negative (NEGATIVE) 03/30/24 12:44 Urine Bilirubin Negative (NEGATIVE) 03/30/24 12:44 Urine Urobilinogen Normal (NORMAL) 03/30/24 12:44 Ur Leukocyte Esterase Negative (NEGATIVE) 03/30/24 12:44 Urine RBC Tntc /HPF (0-3) A 03/30/24 12:44 Urine WBC None seen /HPF (0-5) 03/30/24 12:44 Ur Squamous Epith Cells Rare /HPF (NEGATIVE) 03/30/24 12:44 Amorphous Sediment 1+ /HPF (NEGATIVE) 03/27/24 19:59 Urine Bacteria Trace /HPF (NEGATIVE) 03/30/24 12:44 Coarse Granular Casts Few /HPF (NEGATIVE) 03/27/24 19:59 Urine Mucus Moderate /HPF (NEGATIVE) 03/27/24 19:59 Ur Culture Indicated? No/not indicated 03/30/24 12:44 SARS-CoV-2 (PCR) Negative (NEGATIVE) 03/27/24 18:25 Influenza Type A (PCR) Negative (NEGATIVE) 03/27/24 18:25 Influenza Type B (PCR) Negative (NEGATIVE) 03/27/24 18:25 RSV (PCR) Negative (NEGATIVE) 03/27/24 18:25 Assessment and Plan 1: Status post ERCP, sphincterotomy and stenting. MRSA with Moderate cellulitis around the drainage site. on IV Clindamycin .
--- NOTE | 2024-04-01 22:41 | CT ---
EXAM: ABDOMEN/PELVIS W/O CON HISTORY: POSSIBLE ABDOMINAL ABSCESS AFTER MICHELLE DRAIN; COMPARISON: 03/13/2024. TECHNIQUE: Nonenhanced spiral CT imaging was performed through the abdomen and pelvis and axial, coronal, and sa gittal CT images were generated. FINDINGS: There is bibasilar atelectasis. Heart size is normal. The liver is normal. The gallbladder has bee n removed. There is a tiny pocket of fluid in the gallbladder fossa. The drain has been removed sin ce the earlier study. There is a stent in the common bile duct. Pancreas, spleen, adrenal glands ar e normal. Both kidneys are normal in size without mass, stone, or hydronephrosis. Urinary bladder a nd uterus are normal. There is no adnexal mass. There is some oral contrast in the stomach which is normal in appearance. There is inflammation involving the loops of terminal ileum and there is a fo cus of spiculation and scarring in the pelvis which is adherent to the uterus. The appendix is absen t. There are air-fluid levels in the large bowel but the loops of large bowel are not abnormally dil ated. There are reactive sized mesenteric and retroperitoneal lymph nodes. IMPRESSION: 1. Bibasilar atelectasis. 2. There is a tiny, poorly defined pocket of fluid in the gallbladder fossa measuring up to 1.8 x 3.3 cm in the axial plane by 1.8 cm in the coronal plane. Infection can not be excluded although no en hazel defined abscess henry are identified. 3. There are inflammatory changes in the loops of the ileum and there is a focus of scarring and teth ering in the pelvis. This could be due to Crohn's disease. Correlate with clinical history. Differ ential would include a carcinoid tumor. THIS IS AN ELECTRONICALLY VERIFIED FINAL REPORT 04/01/2024 10:37 PM - Electronically signed by Chaitanya Jacob MD
[2024-04-02 06:25] LABS: BASOPHILS % (AUTO) 0.8 % (0.2-1.0); EOSINOPHILS # (AUTO) 0.6 x10^3/uL (0.0-0.2); EOSINOPHILS % (AUTO) 9.8 % (0.9-2.9); HEMATOCRIT 30.6 % (36.0-47.0); HEMOGLOBIN 9.8 g/dL (12.0-16.0); LYMPHOCYTES % (AUTO) 34.2 % (21.0-51.0); MEAN CORPUSCULAR HEMOGLOBIN 25.6 pg (27.0-34.0); MEAN CORPUSCULAR VOLUME 80.1 fL (80.0-100.0); MEAN PLATELET VOLUME 9.7 fL (7.4-11.0); MONOCYTES # (AUTO) 0.5 x10^3/uL (0.3-0.8); MONOCYTES % (AUTO) 9.2 % (0.0-13.0); NEUTROPHILS # (AUTO) 2.7 x10^3/uL (2.2-4.8); PLATELET COUNT 317 X10^3/uL (150.0-450.0); RED BLOOD COUNT 3.82 X10^6/uL (3.5-5.4); RED CELL DISTRIBUTION WIDTH 15.2 % (11.6-16.5); WHITE BLOOD COUNT 5.8 X10^3/uL (3.6-10.0)
[2024-04-02 06:28] LABS: ALANINE AMINOTRANSFERASE 20 Units/L (12-78); ALBUMIN 2.4 g/dL (3.4-5.0); ALKALINE PHOSPHATASE 119 Units/L (46-116); ASPARTATE AMINO TRANSFERASE 16 Units/L (15-37); BLOOD UREA NITROGEN 1 mg/dL (7-18); CALCIUM 8.5 mg/dL (8.5-10.1); CARBON DIOXIDE 30.8 mmol/L (21-32); CHLORIDE 100 mmol/L (98-107); COR CA(FOR HYPOALB) 9.8 mg/dL (8.5-10.1); CREATININE 0.88 mg/dL (0.55-1.02); GLUCOSE 85 mg/dL (65-99); POTASSIUM 3.9 mmol/L (3.5-5.1); SODIUM 135 mmol/L (136-145); TOTAL PROTEIN 7.4 g/dL (6.4-8.2); eGFR NON BLACK RACES > 60 (>60)
[2024-04-02 06:52] LABS: HYPOCHROMASIA SLIGHT; PLATELET MORPHOLOGY COMMENT NORMAL (NORMAL)
[2024-04-02 09:11] VITALS: RESP 18
[2024-04-02 11:40] VITALS: BP 142/89; PULSE 67; TEMP 98.1; O2SAT 98
== END 2024-04-02 14:10 | disposition home or self-care (01) | DRG 603 ==
LOC: MED/SURG
PROVIDERS: ADMIT Surgery; ATTEND Surgery
DX: J98.11 Atelectasis; R10.31 Right lower quadrant pain; E83.42 Hypomagnesemia; Z16.23 Resistance to quinolones and fluoroquinolones; L03.311 Cellulitis of abdominal wall; T81.49XA Infection following a procedure, other surgical site, initial encounter; Z16.19 Resistance to other specified beta lactam antibiotics; Z59.41 Food insecurity; E87.6 Hypokalemia; Z20.822 Contact with and (suspected) exposure to COVID-19; B96.83 Acinetobacter baumannii as the cause of diseases classified elsewhere; Z16.11 Resistance to penicillins; Z65.8 Other specified problems related to psychosocial circumstances; Z16.29 Resistance to other single specified antibiotic; E87.1 Hypo-osmolality and hyponatremia; Z29.89 Encounter for other specified prophylactic measures; R73.09 Other abnormal glucose; B95.62 Methicillin resistant Staphylococcus aureus infection as the cause of diseases classified elsewhere; Z98.890 Other specified postprocedural states; R50.9 Fever, unspecified

== ENCOUNTER 2024-06-02 13:38 | Inpatient (IN) ==
--- NOTE | 2024-06-02 15:16 | DR.GENAD ---
HPI Time Seen Time Seen by Provider: 06/02/24 15:16 PCP Primary Care Physician: Dr Chavez Complaint/Symptoms Chief Complaint:: Patient states she had a Sandi in February, she states she had stents removed on Sunday. She states last PM she started having abdominal swelling, facial swelling, with nausea and dizziness. Self Treatment fo Chief Complaint: Tylenol 2 tabs po about an hour ago COVID-19 Coronavirus risk:travel/contact w/high risk person: No Has patient experienced Coronavirus symptoms: No Nurses notes reviewed Nurses Notes Review: Yes Source History Provided: Patient Mode of Arrival Mode of Arrival: Ambulatory Timing Onset of Chief Complaint: 06/01/24 PMH PMH Past Medical History: Yes Past Medical History: GERD Past Surgical History: Yes Surgical History: Appendectomy, , Cholecystectomy and Other Family History History of Family Medical Conditions: Yes Family Medical History: Diabetes Mellitus, Cancer, [place], Coronary Artery Disease, Sudden Cardiac and Hypertension Social History Does patient currently use any type of tobacco product: No Have you used tobacco products in the last 12 months: No Type of Tobacco Use: None Does any household member use tobacco: No Alcohol Use: None Do you use any recreational Drugs:: No Lives With: Other Lives Where: [facility] Travel Risk Coronavirus risk:travel/contact w/high risk person: No Has patient experienced Coronavirus symptoms: No Infectious screening In the last 2 months have you had wt loss of >10#?: NO Have you had fever, night sweats or hemotysis?: No Have you traveled outside the country in the last 6 months?: No Isolation: Standard PE Vital Signs Vitals: Vital Signs Temperature 98.3 F Pulse Rate [Left Brachial] 65 Pulse Rate 78 Respiratory Rate 18 Respiratory Rate 18 Respiratory Rate 16 Blood Pressure [Left Arm] 127/83 Blood Pressure 139/94 O2 Sat by Pulse Oximetry 98 O2 Sat by Pulse Oximetry 100 ROR Labs Reviewed 06/02/24 15:30 06/02/24 15:30 Laboratory: WBC 8.5 X10^3/uL (3.6-10.0) 06/02/24 15:30 RBC 4.36 X10^6/uL (3.5-5.4) 06/02/24 15:30 Hgb 11.6 g/dL (12.0-16.0) L 06/02/24 15:30 Hct 34.8 % (36.0-47.0) L 06/02/24 15:30 MCV 79.8 fL (80.0-100.0) L 06/02/24 15:30 MCH 26.7 pg (27.0-34.0) L 06/02/24 15:30 MCHC 33.4 g/dL (33.0-35.0) 06/02/24 15:30 RDW 17.0 % (11.6-16.5) H 06/02/24 15:30 Plt Count 262 X10^3/uL (150.0-450.0) 06/02/24 15:30 MPV 9.1 fL (7.4-11.0) 06/02/24 15:30 Neut % (Auto) 63.3 % (42.0-75.0) 06/02/24 15:30 Lymph % (Auto) 25.8 % (21.0-51.0) 06/02/24 15:30 [place] % (Auto) 8.0 % (0.0-13.0) 06/02/24 15:30 Eos % (Auto) 1.5 % (0.9-2.9) 06/02/24 15:30 Baso % (Auto) 1.4 % (0.2-1.0) H 06/02/24 15:30 Neut # (Auto) 5.4 x10^3/uL (2.2-4.8) H 06/02/24 15:30 Lymph # (Auto) 2.2 X10^3/uL (1.3-2.9) 06/02/24 15:30 [place] # (Auto) 0.7 x10^3/uL (0.3-0.8) 06/02/24 15:30 Eos # (Auto) 0.1 x10^3/uL (0.0-0.2) 06/02/24 15:30 Baso # (Auto) 0.1 X10^3/uL (0.0-0.1) 06/02/24 15:30 Absolute Nucleated RBC 0.1 /100WBC 06/02/24 15:30 Sodium 141 mmol/L (136-145) 06/02/24 15:30 Corrected Sodium TNP 06/02/24 15:30 Potassium 3.6 mmol/L (3.5-5.1) 06/02/24 15:30 Chloride 105 mmol/L (98-107) 06/02/24 15:30 Carbon Dioxide 27.7 mmol/L (21-32) 06/02/24 15:30 BUN 10 mg/dL (7-18) 06/02/24 15:30 Creatinine 0.90 mg/dL (0.55-1.02) 06/02/24 15:30 Est GFR (MDRD) Af Amer > 60 (>60) 06/02/24 15:30 Est GFR (MDRD) Non-Af > 60 (>60) 06/02/24 15:30 Glucose 84 mg/dL (65-99) 06/02/24 15:30 Calcium 8.7 mg/dL (8.5-10.1) 06/02/24 15:30 Corrected Calcium 9.3 mg/dL (8.5-10.1) 06/02/24 15:30 Total Bilirubin 0.40 mg/dL (0.2-1.0) 06/02/24 15:30 AST 18 Units/L (15-37) 06/02/24 15:30 ALT 20 Units/L (12-78) 06/02/24 15:30 Alkaline Phosphatase 95 Units/L (46-116) 06/02/24 15:30 Total Protein 7.7 g/dL (6.4-8.2) 06/02/24 15:30 Albumin 3.3 g/dL (3.4-5.0) L 06/02/24 15:30 Globulin 4.4 g/dL (2.5-4.5) 06/02/24 15:30 Albumin/Globulin Ratio 0.8 Ratio (1.1-2.1) L 06/02/24 15:30 Amylase 46 Units/L (25-115) 06/02/24 15:30 Lipase 32 Units/L (16-77) 06/02/24 15:30 Specimen Type Clean catch urine 06/02/24 16:31 Urine Color Yellow (YELLOW) 06/02/24 16:31 Urine Appearance Clear (CLEAR) 06/02/24 16:31 Urine pH 6.0 (5.0 - 8.0) 06/02/24 16:31 Ur Specific [place] 1.030 (1.000-1.030) 06/02/24 16:31 Urine Protein Negative (NEGATIVE) 06/02/24 16:31 Urine Glucose (UA) Negative (NEGATIVE) 06/02/24 16:31 Urine Ketones 2+ (NEGATIVE) 06/02/24 16:31 Urine Blood Negative (NEGATIVE) 06/02/24 16:31 Urine Nitrite Negative (NEGATIVE) 06/02/24 16:31 Urine Bilirubin Negative (NEGATIVE) 06/02/24 16:31 Urine Urobilinogen Normal (NORMAL) 06/02/24 16:31 Ur Leukocyte Esterase Negative (NEGATIVE) 06/02/24 16:31 Opioid Opioid Risk Tool Age (Rubén box if 16-45): Yes History of Preadolescent Sexual Abuse: No Total: 1 Total Score Risk Category: Low Risk Copyright: Boni FLORENCE predicting aberrant behaviors Discharge Plan Diagnosis Discharge Problem: Partial obstruction of small intestine, Abdominal distention, Nausea, Dizziness Discharge Plan Patient Disposition: ADMITTED INPATIENT Condition: Stable Prescriptions: No Action famotidine 20 mg Tablet 20 mg PO BID Health Concerns: Post Hospitalization: new medications and changes needed to prevent readmission or further decline. Pt educated and given instructions on all concerns. Plan of Treatment: Continue with present treatment and follow up plan. Pt is to keep follow up appointment as instructed and take medications as ordered. Orders to Discharge Patient Discharge Orders: Transfer (Routine); Ordered 06/02/24 Ordered By: JHONATAN MONAE Follow ups/Referrals Follow ups/Referrals: NFD,None [Primary Care Provider] - 3 days Instructions Stand Alone Forms: Post Hospital Follow Up Care
[2024-06-02 15:42] LABS: BASOPHILS # (AUTO) 0.1 X10^3/uL (0.0-0.1); BASOPHILS % (AUTO) 1.4 % (0.2-1.0); EOSINOPHILS # (AUTO) 0.1 x10^3/uL (0.0-0.2); EOSINOPHILS % (AUTO) 1.5 % (0.9-2.9); HEMATOCRIT 34.8 % (36.0-47.0); HEMOGLOBIN 11.6 g/dL (12.0-16.0); LYMPHOCYTES # (AUTO) 2.2 X10^3/uL (1.3-2.9); LYMPHOCYTES % (AUTO) 25.8 % (21.0-51.0); MEAN CORPUSCULAR HEMOGLOBIN 26.7 pg (27.0-34.0); MEAN CORPUSCULAR HGB CONC 33.4 g/dL (33.0-35.0); MEAN CORPUSCULAR VOLUME 79.8 fL (80.0-100.0); MEAN PLATELET VOLUME 9.1 fL (7.4-11.0); MONOCYTES # (AUTO) 0.7 x10^3/uL (0.3-0.8); NEUTROPHILS # (AUTO) 5.4 x10^3/uL (2.2-4.8); NEUTROPHILS % (AUTO) 63.3 % (42.0-75.0); PLATELET COUNT 262 X10^3/uL (150.0-450.0); RED BLOOD COUNT 4.36 X10^6/uL (3.5-5.4); WHITE BLOOD COUNT 8.5 X10^3/uL (3.6-10.0)
[2024-06-02 15:53] LABS: ALANINE AMINOTRANSFERASE 20 Units/L (12-78); ALBUMIN 3.3 g/dL (3.4-5.0); ALKALINE PHOSPHATASE 95 Units/L (46-116); AMYLASE 46 Units/L (25-115); ASPARTATE AMINO TRANSFERASE 18 Units/L (15-37); BLOOD UREA NITROGEN 10 mg/dL (7-18); CALCIUM 8.7 mg/dL (8.5-10.1); CARBON DIOXIDE 27.7 mmol/L (21-32); CHLORIDE 105 mmol/L (98-107); COR CA(FOR HYPOALB) 9.3 mg/dL (8.5-10.1); GLUCOSE 84 mg/dL (65-99); LIPASE 32 Units/L (16-77); POTASSIUM 3.6 mmol/L (3.5-5.1); SODIUM 141 mmol/L (136-145); TOTAL PROTEIN 7.7 g/dL (6.4-8.2); eGFR NON BLACK RACES > 60 (>60)
[2024-06-02 16:42] LABS: BILIRUBIN,URINE NEGATIVE (NEGATIVE); BLOOD/HEMOGLOBIN,URINE NEGATIVE (NEGATIVE); GLUCOSE, URINE NEGATIVE (NEGATIVE); KETONES,URINE 2+ (NEGATIVE); LEUKOCYTE ESTERASE ,URINE NEGATIVE (NEGATIVE); NITRITES,URINE NEGATIVE (NEGATIVE); PROTEIN,URINE NEGATIVE (NEGATIVE); UROBILINOGEN,URINE NORMAL (NORMAL)
[2024-06-02 16:44] LABS: APPEARANCE,URINE CLEAR (CLEAR); COLOR,URINE YELLOW (YELLOW)
--- NOTE | 2024-06-02 16:45 | CT ---
EXAM: CT ABDOMEN AND PELVIS WITHOUT INTRAVENOUS CONTRASTHISTORY: Abdominal pain.TECHNIQUE: Spiral axial CT images are obtained through the abdomen and pelvis without the administration of intravenous contrast. Additional coronal and sagittal reformatted images are reconstructed.DOSIMETRY: Total DLP 237.28 mGycm; CTDI 4.48 mGyCOMPARISON: CT abdomen pelvis dated April 01, 2024.FINDINGS:GASTROINTESTINAL TRACT: There is up to 9.1 mm circumferential thickening of an approximately 3 cm dilated fluid-filled small bowel loop in the central/left pelvis, with severe tapered luminal narrowing at associated mesenteric masslike conglomerate (approximately 3.3 cm x 2.5 cm) and associated mesenteric fat stranding and tethering, and mild perienteric stranding/edema; relatively stable findings (except development of perienteric edema); DDx includes sequela of inflammatory bowel disease (e.g. Crohn's disease) complicated by postinflammatory stricture and/or adhesion, with partial low-grade SBO; cannot rule out neoplastic disease (e.g. carcinoid tumor) with associated small bowel involvement/thickening and partial obstruction. Axial image 57-79; coronal image 17-37; sagittal image 28-47. Clinical correlation is advised. Abundant fecal material is seen within the large bowel loops; nonspecific finding; rule out constipation. There is no evidence for bowel herniation, bowel ischemia, colitis or diverticulitis.GENITOURINARY SYSTEM: The kidneys are unremarkable. There is no ureteral calculus or stigmata of obstructive uropathy. The urinary bladder is grossly unremarkable for a non-dedicated exam.REPRODUCTIVE SYSTEM: The uterus and adnexa appear grossly unremarkable for a CT scan. Consider follow-up dedicated imaging as clinically warranted. Tampon noted in situ.BILIARY SYSTEM: The patient is status post cholecystectomy (stable). There is interval resolution of the previously seen complex fluid collection in the gallbladder fossa. There is interval removal of the previously seen biliary enteric stent. No gross evidence for choledocholithiasis or intrahepatic/extrahepatic biliary ductal dilatation is seen.CT ABDOMEN: The liver, spleen, pancreas, adrenal glands, aorta, and inferior vena cava are within normal limits for a noncontrast CT scan. There is no intra-abdominal or retroperitoneal lymphadenopathy, free fluid, or free air seen. No abdominal herniation is noted.CT PELVIS: No pelvic sidewall or inguinal lymphadenopathy is seen. No inguinal herniation is noted. No free fluid or free air is seen.BONES AND JOINTS: The visualized bony structures are within normal limits.LUNG BASES: The lung bases are clear.IMPRESSION:1. Up to 9.1 mm circumferential thickening of an approximately 3 cm dilated fluid-filled small bowel loop in the central/left pelvis, with severe tapered luminal narrowing at associated mesenteric masslike conglomerate (approximately 3.3 cm x 2.5 cm) and associated mesenteric fat stranding and tethering, and mild perienteric stranding/edema; relatively stable findings (except development of perienteric edema); DDx includes sequela of inflammatory bowel disease (e.g. Crohn's disease) complicated by postinflammatory stricture and/or adhesion, with partial low-grade SBO; cannot rule out neoplastic disease (e.g. carcinoid tumor) with associated small bowel involvement/thickening and partial obstruction. Axial image 57-79; coronal image 17-37; sagittal image 28-47. Clinical correlation is advised.2. Abundant fecal material is seen within the large bowel loops; DDx includes constipation in the appropriate clinical setting (new finding).3. No evidence for bowel herniation, bowel ischemia, appendicitis, colitis or diverticulitis.4. No evidence for ureteral stones or obstructive uropathy.5. No free fluid, free air, or lymphadenopathy seen.6. Status post cholecystectomy (stable).THIS IS AN ELECTRONICALLY VERIFIED FINAL [id number]/02/2024 4:41 PM - Electronically signed by Delmi Jones MD
[2024-06-02] MEDS: NS 1,000 ML IV 1,000 ML IV SCH (19:21)
[2024-06-02] MEDS: ZOFRAN INJ 4 MG VIAL IVP ONE (19:22)
[2024-06-02] MEDS: MORPHINE SULFATE INJ 4 MG IVP ONE (19:23)
[2024-06-02 21:12] VITALS: BMI 27.6
[2024-06-02] MEDS: PROTONIX INJ 40 MG VIAL IVP SCH (21:37)
[2024-06-02] MEDS: ZOFRAN INJ 4 MG VIAL IVP PRN (23:16)
[2024-06-03] MEDS: MORPHINE SULFATE INJ 2 MG INJ IVP PRN (04:20)
[2024-06-03 05:58] LABS: BASOPHILS % (AUTO) 0.4 % (0.2-1.0); EOSINOPHILS # (AUTO) 0.2 x10^3/uL (0.0-0.2); EOSINOPHILS % (AUTO) 2.8 % (0.9-2.9); HEMATOCRIT 32.3 % (36.0-47.0); HEMOGLOBIN 10.6 g/dL (12.0-16.0); LYMPHOCYTES # (AUTO) 1.8 X10^3/uL (1.3-2.9); LYMPHOCYTES % (AUTO) 25.2 % (21.0-51.0); MEAN CORPUSCULAR HEMOGLOBIN 26.3 pg (27.0-34.0); MEAN CORPUSCULAR HGB CONC 32.8 g/dL (33.0-35.0); MEAN CORPUSCULAR VOLUME 80.2 fL (80.0-100.0); MEAN PLATELET VOLUME 9.6 fL (7.4-11.0); MONOCYTES # (AUTO) 0.6 x10^3/uL (0.3-0.8); MONOCYTES % (AUTO) 7.6 % (0.0-13.0); NEUTROPHILS # (AUTO) 4.6 x10^3/uL (2.2-4.8); PLATELET COUNT 231 X10^3/uL (150.0-450.0); RED BLOOD COUNT 4.02 X10^6/uL (3.5-5.4); RED CELL DISTRIBUTION WIDTH 16.7 % (11.6-16.5); WHITE BLOOD COUNT 7.2 X10^3/uL (3.6-10.0)
[2024-06-03 06:14] LABS: ALANINE AMINOTRANSFERASE 27 Units/L (12-78); ALBUMIN 2.8 g/dL (3.4-5.0); ALKALINE PHOSPHATASE 82 Units/L (46-116); AMYLASE 171 Units/L (25-115); ASPARTATE AMINO TRANSFERASE 25 Units/L (15-37); BLOOD UREA NITROGEN 10 mg/dL (7-18); CARBON DIOXIDE 28.7 mmol/L (21-32); CHLORIDE 107 mmol/L (98-107); CREATININE 0.84 mg/dL (0.55-1.02); GLUCOSE 74 mg/dL (65-99); MAGNESIUM 1.7 mg/dL (2.0-2.9); POTASSIUM 4.1 mmol/L (3.5-5.1); SODIUM 140 mmol/L (136-145); TOTAL PROTEIN 6.8 g/dL (6.4-8.2); eGFR NON BLACK RACES > 60 (>60)
[2024-06-03 06:15] LABS: LIPASE 357 Units/L (16-77)
[2024-06-03] MEDS ORDERED: CONSULT PHARMACY - POTASSIUM & MAGNESIUM XX SCH (08:00)
[2024-06-03] MEDS: MAGNESIUM SULFATE 1 GRAM/100 mL PREMIX 1 G/100 ML BAG IV SCH (08:19)
--- NOTE | 2024-06-03 08:21 | DR.PROGNOT ---
HOSPITAL PROGRESS NOTE Progress Note for Day of: Progress Note Date: 06/03/24 Chief Complaint Chief Complaint: Patient is complaining of mid abdominal pain with nausea, same as before, no vomiting, no bowel movement. Abdominal and pelvic CT scan is consistent with inflammatory bowel disease. White count 7.2, hemoglobin 10.6, liver function test, serum bilirubin is normal, albumin 2.8 amylase lipase are elevated to 171 and 357. Patient is afebrile and stable vital signs. Past Medical Family Social History Past Med/Fam/Surg Hx: No changes since H&P Allergies: Allergies bee pollen Allergy (Severe, Verified 04/18/24 18:12) ANAPHALEXIS REACTION adhesive tape [tape (adhesive)] Allergy (Verified 04/18/24 18:12) rash bee venom protein (honey bee) Allergy (Verified 04/18/24 18:12) ANAPHALEXIS REACTION latex Allergy (Verified 04/18/24 18:12) rash shellfish derived Allergy (Verified 04/18/24 18:12) ANAPHALEXIS REACTION Vital Signs Vital Signs: Vital Signs Temperature 98.2 F Temperature 97.7 F Pulse Rate [Left Brachial] 53 Pulse Rate [Left Brachial] 56 Respiratory Rate 19 Respiratory Rate 20 Respiratory Rate 18 Blood Pressure [Left Arm] 104/59 Blood Pressure [Left Arm] 118/57 O2 Sat by Pulse Oximetry 98 O2 Sat by Pulse Oximetry 98 Physical Exam Oriented: Normal Eyes: Normal Throat: Normal Respiratory: Normal Cardiovascular: Normal GI:Auscultation: Normal GI:Palpation: Normal GI: Tenderness: Other (Diffuse abdominal tenderness with fullness, no masses were felt, bowel sounds present) Speech Pattern: Clear and Appropriate Laboratory and Diagnostics 06/03/24 05:21 06/03/24 05:21 Labs: Laboratory WBC 7.2 X10^3/uL (3.6-10.0) 06/03/24 05:21 RBC 4.02 X10^6/uL (3.5-5.4) 06/03/24 05:21 Hgb 10.6 g/dL (12.0-16.0) L 06/03/24 05:21 Hct 32.3 % (36.0-47.0) L 06/03/24 05:21 MCV 80.2 fL (80.0-100.0) 06/03/24 05:21 MCH 26.3 pg (27.0-34.0) L 06/03/24 05:21 MCHC 32.8 g/dL (33.0-35.0) L 06/03/24 05:21 RDW 16.7 % (11.6-16.5) H 06/03/24 05:21 Plt Count 231 X10^3/uL (150.0-450.0) 06/03/24 05:21 MPV 9.6 fL (7.4-11.0) 06/03/24 05:21 Neut % (Auto) 64.0 % (42.0-75.0) 06/03/24 05:21 Lymph % (Auto) 25.2 % (21.0-51.0) 06/03/24 05:21 [place] % (Auto) 7.6 % (0.0-13.0) 06/03/24 05:21 Eos % (Auto) 2.8 % (0.9-2.9) 06/03/24 05:21 Baso % (Auto) 0.4 % (0.2-1.0) 06/03/24 05:21 Neut # (Auto) 4.6 x10^3/uL (2.2-4.8) 06/03/24 05:21 Lymph # (Auto) 1.8 X10^3/uL (1.3-2.9) 06/03/24 05:21 [place] # (Auto) 0.6 x10^3/uL (0.3-0.8) 06/03/24 05:21 Eos # (Auto) 0.2 x10^3/uL (0.0-0.2) 06/03/24 05:21 Baso # (Auto) 0.0 X10^3/uL (0.0-0.1) 06/03/24 05:21 Absolute Nucleated RBC 0.1 /100WBC 06/03/24 05:21 Sodium 140 mmol/L (136-145) 06/03/24 05:21 Corrected Sodium TNP 06/03/24 05:21 Potassium 4.1 mmol/L (3.5-5.1) 06/03/24 05:21 Chloride 107 mmol/L (98-107) 06/03/24 05:21 Carbon Dioxide 28.7 mmol/L (21-32) 06/03/24 05:21 BUN 10 mg/dL (7-18) 06/03/24 05:21 Creatinine 0.84 mg/dL (0.55-1.02) 06/03/24 05:21 Est GFR (MDRD) Af Amer > 60 (>60) 06/03/24 05:21 Est GFR (MDRD) Non-Af > 60 (>60) 06/03/24 05:21 Glucose 74 mg/dL (65-99) 06/03/24 05:21 Calcium 8.0 mg/dL (8.5-10.1) L 06/03/24 05:21 Corrected Calcium 9.0 mg/dL (8.5-10.1) 06/03/24 05:21 Magnesium 1.7 mg/dL (2.0-2.9) L 06/03/24 05:21 Total Bilirubin 0.30 mg/dL (0.2-1.0) 06/03/24 05:21 AST 25 Units/L (15-37) 06/03/24 05:21 ALT 27 Units/L (12-78) 06/03/24 05:21 Alkaline Phosphatase 82 Units/L (46-116) 06/03/24 05:21 Total Protein 6.8 g/dL (6.4-8.2) 06/03/24 05:21 Albumin 2.8 g/dL (3.4-5.0) L 06/03/24 05:21 Globulin 4.0 g/dL (2.5-4.5) 06/03/24 05:21 Albumin/Globulin Ratio 0.7 Ratio (1.1-2.1) L 06/03/24 05:21 Amylase 171 Units/L (25-115) H 06/03/24 05:21 Lipase 357 Units/L (16-77) H 06/03/24 05:21 Specimen Type Clean catch urine 06/02/24 16:31 Urine Color Yellow (YELLOW) 06/02/24 16:31 Urine Appearance Clear (CLEAR) 06/02/24 16:31 Urine pH 6.0 (5.0 - 8.0) 06/02/24 16:31 Ur Specific [place] 1.030 (1.000-1.030) 06/02/24 16:31 Urine Protein Negative (NEGATIVE) 06/02/24 16:31 Urine Glucose (UA) Negative (NEGATIVE) 06/02/24 16:31 Urine Ketones 2+ (NEGATIVE) 06/02/24 16:31 Urine Blood Negative (NEGATIVE) 06/02/24 16:31 Urine Nitrite Negative (NEGATIVE) 06/02/24 16:31 Urine Bilirubin Negative (NEGATIVE) 06/02/24 16:31 Urine Urobilinogen Normal (NORMAL) 06/02/24 16:31 Ur Leukocyte Esterase Negative (NEGATIVE) 06/02/24 16:31 Assessment and Plan 1: Abdominal pain with nausea and vomiting, moderate pancreatitis. Status post recent laparoscopic cholecystectomy, ERCP, with stenting. Partial bowel obstruction rule out inflammatory bowel disease. To obtain KUB today, on IV fluid. If the KUB did not show significant bowel obstruction will advance her diet. Problem Patient Problems: Patient Problems Partial obstruction of small intestine (Acute) K56.600 Abdominal distention (Acute) R14.0 Nausea (Acute) R11.0 Dizziness (Acute) R42
[2024-06-04 05:48] LABS: BASOPHILS # (AUTO) 0.1 X10^3/uL (0.0-0.1); BASOPHILS % (AUTO) 0.6 % (0.2-1.0); EOSINOPHILS # (AUTO) 0.1 x10^3/uL (0.0-0.2); EOSINOPHILS % (AUTO) 1.6 % (0.9-2.9); HEMATOCRIT 30.9 % (36.0-47.0); HEMOGLOBIN 10.2 g/dL (12.0-16.0); LYMPHOCYTES # (AUTO) 1.5 X10^3/uL (1.3-2.9); LYMPHOCYTES % (AUTO) 19.4 % (21.0-51.0); MEAN CORPUSCULAR HEMOGLOBIN 26.2 pg (27.0-34.0); MEAN CORPUSCULAR VOLUME 79.5 fL (80.0-100.0); MEAN PLATELET VOLUME 9.4 fL (7.4-11.0); MONOCYTES # (AUTO) 0.8 x10^3/uL (0.3-0.8); MONOCYTES % (AUTO) 9.9 % (0.0-13.0); NEUTROPHILS # (AUTO) 5.3 x10^3/uL (2.2-4.8); NEUTROPHILS % (AUTO) 68.5 % (42.0-75.0); PLATELET COUNT 231 X10^3/uL (150.0-450.0); RED BLOOD COUNT 3.88 X10^6/uL (3.5-5.4); RED CELL DISTRIBUTION WIDTH 16.8 % (11.6-16.5); WHITE BLOOD COUNT 7.7 X10^3/uL (3.6-10.0)
[2024-06-04 05:57] LABS: ALANINE AMINOTRANSFERASE 20 Units/L (12-78); ALBUMIN 2.7 g/dL (3.4-5.0); ALKALINE PHOSPHATASE 78 Units/L (46-116); AMYLASE 44 Units/L (25-115); ASPARTATE AMINO TRANSFERASE 18 Units/L (15-37); BLOOD UREA NITROGEN 7 mg/dL (7-18); CALCIUM 8.1 mg/dL (8.5-10.1); CARBON DIOXIDE 27.5 mmol/L (21-32); CHLORIDE 106 mmol/L (98-107); COR CA(FOR HYPOALB) 9.1 mg/dL (8.5-10.1); GLUCOSE 82 mg/dL (65-99); LIPASE 40 Units/L (16-77); MAGNESIUM 1.6 mg/dL (2.0-2.9); POTASSIUM 4.1 mmol/L (3.5-5.1); SODIUM 140 mmol/L (136-145); TOTAL PROTEIN 6.7 g/dL (6.4-8.2); eGFR NON BLACK RACES > 60 (>60)
[2024-06-04] MEDS ORDERED: CONSULT PHARMACY - POTASSIUM & MAGNESIUM XX SCH (07:00)
--- NOTE | 2024-06-04 07:30 | RAD ---
EXAMINATION: KUB HISTORY: PARTIAL SMALL BOWEL OBSTRUCTION; GERD SX: APPY, ROBEL, CSECTION . COMPARISON STUDY: KUB 06/03/2024 TECHNIQUE: Single supine AP view of the abdomen and pelvis. FINDINGS: Mild amount of feces. Contrast within the descending colon, rectosigmoid. Surgical clips right uppe r abdomen. Visualized osseous structures and soft tissue outlines appear normal. Lower pelvis was n ot imaged. IMPRESSION: Mild amount of feces. Residual contrast within the descending colon and rectosigmoid. THIS IS AN ELECTRONICALLY VERIFIED FINAL REPORT 06/04/2024 7:27 AM - Electronically signed by Sallie Mcdonald MD
[2024-06-04] MEDS: MAG-OX TAB PO SCH (08:03)
--- NOTE | 2024-06-04 08:17 | RAD ---
EXAMINATION:KUBHISTORY:partial small bowel obstruction; GB .COMPARISON STUDY:Report CT abdomen 06/02/2024TECHNIQUE:Single supine AP view of the abdomen and pelvisFINDINGS:There is contrast within the descending colon, sigmoid colon. Mild amount of feces. Mild gaseous distention of a few loops of bowel in the central and lower abdomen. Surgical clips right upper abdomen. The superior aspect of the abdomen was not imaged. Visualized osseous structures appear intact.IMPRESSION:Contrast within the descending colon and sigmoid colon. Mild gaseous distention of the few loops of bowel in the central and lower pelvis.THIS IS AN ELECTRONICALLY VERIFIED FINAL [id number]/2024 8:14 AM - Electronically signed by Sallie Mcdonald MD
[2024-06-04] MEDS: LIORESAL PO SCH (09:52)
--- NOTE | 2024-06-04 11:21 | DR.PROGNOT ---
HOSPITAL PROGRESS NOTE Progress Note for Day of: Progress Note Date: 06/04/24 Chief Complaint Chief Complaint: Patient is complaining of mid abdominal pain with nausea, same as before, no vomiting, no bowel movement. KUB showed no evidence of obstruction now. Some residual dye in the left colon. White count normal, hemoglobin 10.6, liver function tests, serum bilirubin are normal, albumin 2.7 amylase lipase are normal today. Patient is afebrile and stable vital signs. Abdomen soft, somewhat full with diffuse tenderness, no rebound or rigidity, bowel sounds are present. Past Medical Family Social History Past Med/Fam/Surg Hx: No changes since H&P Allergies: Allergies bee pollen Allergy (Severe, Verified 04/18/24 18:12) ANAPHALEXIS REACTION adhesive tape [tape (adhesive)] Allergy (Verified 04/18/24 18:12) rash bee venom protein (honey bee) Allergy (Verified 04/18/24 18:12) ANAPHALEXIS REACTION latex Allergy (Verified 04/18/24 18:12) rash shellfish derived Allergy (Verified 04/18/24 18:12) ANAPHALEXIS REACTION Vital Signs Vital Signs: Vital Signs Temperature 98.3 F Temperature 98.2 F Pulse Rate [Left Brachial] 70 Pulse Rate [Left Brachial] 65 Respiratory Rate 21 Respiratory Rate 18 Respiratory Rate 18 Respiratory Rate 16 Blood Pressure [Left Arm] 114/67 Blood Pressure [Left Arm] 111/79 O2 Sat by Pulse Oximetry 98 O2 Sat by Pulse Oximetry 98 Physical Exam Oriented: Normal Eyes: Normal Ear: Normal Nose: Normal Throat: Normal Respiratory: Normal Cardiovascular: Normal GI:Auscultation: Normal GI:Palpation: Normal GI: Tenderness: Other (Diffuse abdominal tenderness with fullness, no masses were felt, bowel sounds present) Speech Pattern: Clear and Appropriate Laboratory and Diagnostics 06/04/24 05:30 06/04/24 05:30 Labs: Laboratory WBC 7.7 X10^3/uL (3.6-10.0) 06/04/24 05:30 RBC 3.88 X10^6/uL (3.5-5.4) 06/04/24 05:30 Hgb 10.2 g/dL (12.0-16.0) L 06/04/24 05:30 Hct 30.9 % (36.0-47.0) L 06/04/24 05:30 MCV 79.5 fL (80.0-100.0) L 06/04/24 05:30 MCH 26.2 pg (27.0-34.0) L 06/04/24 05:30 MCHC 33.0 g/dL (33.0-35.0) 06/04/24 05:30 RDW 16.8 % (11.6-16.5) H 06/04/24 05:30 Plt Count 231 X10^3/uL (150.0-450.0) 06/04/24 05:30 MPV 9.4 fL (7.4-11.0) 06/04/24 05:30 Neut % (Auto) 68.5 % (42.0-75.0) 06/04/24 05:30 Lymph % (Auto) 19.4 % (21.0-51.0) L 06/04/24 05:30 [place] % (Auto) 9.9 % (0.0-13.0) 06/04/24 05:30 Eos % (Auto) 1.6 % (0.9-2.9) 06/04/24 05:30 Baso % (Auto) 0.6 % (0.2-1.0) 06/04/24 05:30 Neut # (Auto) 5.3 x10^3/uL (2.2-4.8) H 06/04/24 05:30 Lymph # (Auto) 1.5 X10^3/uL (1.3-2.9) 06/04/24 05:30 [place] # (Auto) 0.8 x10^3/uL (0.3-0.8) 06/04/24 05:30 Eos # (Auto) 0.1 x10^3/uL (0.0-0.2) 06/04/24 05:30 Baso # (Auto) 0.1 X10^3/uL (0.0-0.1) 06/04/24 05:30 Absolute Nucleated RBC 0.0 /100WBC 06/04/24 05:30 Sodium 140 mmol/L (136-145) 06/04/24 05:30 Corrected Sodium TNP 06/04/24 05:30 Potassium 4.1 mmol/L (3.5-5.1) 06/04/24 05:30 Chloride 106 mmol/L (98-107) 06/04/24 05:30 Carbon Dioxide 27.5 mmol/L (21-32) 06/04/24 05:30 BUN 7 mg/dL (7-18) 06/04/24 05:30 Creatinine 0.80 mg/dL (0.55-1.02) 06/04/24 05:30 Est GFR (MDRD) Af Amer > 60 (>60) 06/04/24 05:30 Est GFR (MDRD) Non-Af > 60 (>60) 06/04/24 05:30 Glucose 82 mg/dL (65-99) 06/04/24 05:30 Calcium 8.1 mg/dL (8.5-10.1) L 06/04/24 05:30 Corrected Calcium 9.1 mg/dL (8.5-10.1) 06/04/24 05:30 Magnesium 1.6 mg/dL (2.0-2.9) L 06/04/24 05:30 Total Bilirubin 0.20 mg/dL (0.2-1.0) 06/04/24 05:30 AST 18 Units/L (15-37) 06/04/24 05:30 ALT 20 Units/L (12-78) 06/04/24 05:30 Alkaline Phosphatase 78 Units/L (46-116) 06/04/24 05:30 Total Protein 6.7 g/dL (6.4-8.2) 06/04/24 05:30 Albumin 2.7 g/dL (3.4-5.0) L 06/04/24 05:30 Globulin 4.0 g/dL (2.5-4.5) 06/04/24 05:30 Albumin/Globulin Ratio 0.7 Ratio (1.1-2.1) L 06/04/24 05:30 Amylase 44 Units/L (25-115) 06/04/24 05:30 Lipase 40 Units/L (16-77) 06/04/24 05:30 Specimen Type Clean catch urine 06/02/24 16:31 Urine Color Yellow (YELLOW) 06/02/24 16:31 Urine Appearance Clear (CLEAR) 06/02/24 16:31 Urine pH 6.0 (5.0 - 8.0) 06/02/24 16:31 Ur Specific [place] 1.030 (1.000-1.030) 06/02/24 16:31 Urine Protein Negative (NEGATIVE) 06/02/24 16:31 Urine Glucose (UA) Negative (NEGATIVE) 06/02/24 16:31 Urine Ketones 2+ (NEGATIVE) 06/02/24 16:31 Urine Blood Negative (NEGATIVE) 06/02/24 16:31 Urine Nitrite Negative (NEGATIVE) 06/02/24 16:31 Urine Bilirubin Negative (NEGATIVE) 06/02/24 16:31 Urine Urobilinogen Normal (NORMAL) 06/02/24 16:31 Ur Leukocyte Esterase Negative (NEGATIVE) 06/02/24 16:31 Assessment and Plan 1: Abdominal pain with nausea and vomiting, moderate pancreatitis. Subsided partial bowel obstruction. Possible inflammatory bowel disease Status post recent laparoscopic cholecystectomy, ERCP, with stenting. To obtain KUB today, on IV fluid. Advance diet to soft as tolerated. Future GI endoscopy both upper and lower. Problem Patient Problems: Patient Problems Partial obstruction of small intestine (Acute) K56.600 Abdominal distention (Acute) R14.0 Nausea (Acute) R11.0 Dizziness (Acute) R42
[2024-06-04] MEDS: MILK OF MAGNESIA PO ONE (20:34)
[2024-06-05 06:21] LABS: EOSINOPHILS # (AUTO) 0.2 x10^3/uL (0.0-0.2); MONOCYTES # (AUTO) 0.9 x10^3/uL (0.3-0.8); NEUTROPHILS # (AUTO) 5.8 x10^3/uL (2.2-4.8); WHITE BLOOD COUNT 8.7 X10^3/uL (3.6-10.0)
[2024-06-05 06:28] LABS: BASOPHILS % (AUTO) 0.4 % (0.2-1.0); EOSINOPHILS % (AUTO) 2.2 % (0.9-2.9); HEMATOCRIT 31.6 % (36.0-47.0); HEMOGLOBIN 10.7 g/dL (12.0-16.0); LYMPHOCYTES # (AUTO) 1.8 X10^3/uL (1.3-2.9); LYMPHOCYTES % (AUTO) 20.5 % (21.0-51.0); MEAN CORPUSCULAR HEMOGLOBIN 26.9 pg (27.0-34.0); MEAN CORPUSCULAR HGB CONC 33.7 g/dL (33.0-35.0); NEUTROPHILS % (AUTO) 66.9 % (42.0-75.0); PLATELET COUNT 222 X10^3/uL (150.0-450.0); RED BLOOD COUNT 3.96 X10^6/uL (3.5-5.4); RED CELL DISTRIBUTION WIDTH 16.5 % (11.6-16.5)
[2024-06-05 06:52] LABS: ALANINE AMINOTRANSFERASE 16 Units/L (12-78); ALBUMIN 2.7 g/dL (3.4-5.0); ALKALINE PHOSPHATASE 76 Units/L (46-116); ASPARTATE AMINO TRANSFERASE 17 Units/L (15-37); BLOOD UREA NITROGEN 5 mg/dL (7-18); CALCIUM 8.3 mg/dL (8.5-10.1); CARBON DIOXIDE 25.8 mmol/L (21-32); CHLORIDE 107 mmol/L (98-107); COR CA(FOR HYPOALB) 9.3 mg/dL (8.5-10.1); CREATININE 0.74 mg/dL (0.55-1.02); GLUCOSE 91 mg/dL (65-99); MAGNESIUM 1.9 mg/dL (2.0-2.9); POTASSIUM 4.1 mmol/L (3.5-5.1); SODIUM 142 mmol/L (136-145); TOTAL PROTEIN 6.8 g/dL (6.4-8.2); eGFR NON BLACK RACES > 60 (>60)
--- NOTE | 2024-06-05 08:22 | DR.CONSULT ---
CONSULT Consultation for Day of: Date: 06/04/24 Chief Complaint Chief Complaint: Medical consult for acute bilateral thigh pain. Patient is here for partial small bowel obstruction and abdominal distention with abdominal pain. Allergies Allergies Allergy/AdvReac Type Severity Reaction Status Date / Time bee pollen Allergy Severe ANAPHALEXIS Verified 04/18/24 18:12 REACTION adhesive tape Allergy Verified 04/18/24 18:12 [tape (adhesive)] bee venom protein (honey bee) Allergy ANAPHALEXIS Verified 04/18/24 18:12 REACTION latex Allergy Verified 04/18/24 18:12 shellfish derived Allergy ANAPHALEXIS Verified 04/18/24 18:12 REACTION History of Present Illness History of Present Illness: Flakita Nash is a female patient with a history of ulcerative colitis diagnosed in [place]. She presents with a complaint of abdominal swelling and pain, having not had a bowel movement since Sunday. She indicated that prior to her visit, she was experiencing discomfort that increased significantly after a stent was removed approximately 7 days prior. The onset of abdominal pain was noted to become more acute on Sunday, prompting her visit to the hospital Sunday morning. She reports the pain is located across the lower abdomen and is accompanied by general discomfort, particularly around her midsection. She denies any blood in her stool and has not been taking pain medications until her hospital stay. Her pain worsened significantly after the stent removal, and she is currently on a soft diet due to intestinal swelling. She has a history of lupus for which she intermittently takes prednisone, but she has not been on any regular medication for her ulcerative colitis for some time. Acute bilateral upper thigh pain since last night. Pain has not gotten any better and is currently not relieved with her current medication treatment. Past Medical History Past Medical History: GERD Past Surgical History Surgical History: Appendectomy and Family History Family Medical History: Cancer, [place] and Hypertension Social History Does patient currently use any type of tobacco product: No Have you used tobacco products in the last 12 months: No Type of Tobacco Use: None Does any household member use tobacco: No Alcohol Use: None Drug Use: None Medications Home Medications: bee pollen Allergy (Severe, Verified 04/18/24 18:12) ANAPHALEXIS REACTION adhesive tape [tape (adhesive)] Allergy (Verified 04/18/24 18:12) bee venom protein (honey bee) Allergy (Verified 04/18/24 18:12) ANAPHALEXIS REACTION latex Allergy (Verified 04/18/24 18:12) shellfish derived Allergy (Verified 04/18/24 18:12) ANAPHALEXIS REACTION Review of Systems Constitutional: No Symptoms Reported Eyes: No Symptoms Reported ENT: No Symptoms Reported Respiratory: No Symptoms Reported Cardiovascular: No Symptoms Reported Gastrointestinal: Abdominal Pain Genitourinary: No Symptoms Reported Musculoskeletal: Leg Pain Skin: No Symptoms Reported Neurological: No Symptoms Reported Physical Exam Vital Signs: Vital Signs Temperature 98.0 F Pulse Rate [Right Brachial] 63 Respiratory Rate 18 Respiratory Rate 18 Respiratory Rate 22 Blood Pressure [Right Arm] 117/62 O2 Sat by Pulse Oximetry 96 Oriented: Normal Eyes: Normal Nose: Normal Throat: Normal Respiratory: Clear Throughout Cardiovascular: Normal : Normal Auscultation: Bowel Sounds: Normal Palpation: Normal Tenderness: Diffuse, RUQ, LUQ, LLQ and Epigastric Skin: Normal Musculoskeletal: Right, Left and Leg Psychiatric: Normal Mood Description: Calm Affect: Normal Speech Pattern: Clear Plan (1) Muscle spasms of both lower extremities: Status: Acute Plan: Baclofen 10 mg p.o. every 6 hours for muscle spasms lower thighs, bilaterally. And recheck in the morning. (2) Partial obstruction of small intestine: Status: Acute (3) Abdominal distention: Status: Acute
--- NOTE | 2024-06-05 09:28 | PCM.PROG ---
Progress Note Progress Note for Day of Date of Exam: 06/05/24 Subjective Subjective: Flakita reported that the medication helped her leg cramping "a little bit". Upon examination, I found that the right thigh area was still a little tight. The left lateral thigh area felt more loose today. I observed that the left lateral thigh had less cord-like mass and less tenderness. The right thigh also showed a reduction in the cord-like mass. Both thighs bilaterally showed improvement. Flakita mentioned that another doctor (Arjun) was performing a scope procedure today related to her belly issues. Plan/Recommendations I will continue with the current treatment plan. We will keep doing what we're doing and reassess in the morning. I advised Flakita to let us know if she needs anything. Past Medical Family Social History Past Med/Fam/Surg Hx: No changes since H&P Allergies: Allergies bee pollen Allergy (Severe, Verified 04/18/24 18:12) ANAPHALEXIS REACTION adhesive tape [tape (adhesive)] Allergy (Verified 04/18/24 18:12) rash bee venom protein (honey bee) Allergy (Verified 04/18/24 18:12) ANAPHALEXIS REACTION latex Allergy (Verified 04/18/24 18:12) rash shellfish derived Allergy (Verified 04/18/24 18:12) ANAPHALEXIS REACTION Review of Systems ROS: No change since H&P Vital Signs and I&O's Vital Signs: Vital Signs Temperature 98.0 F Pulse Rate [Right Brachial] 63 Respiratory Rate 18 Respiratory Rate 18 Respiratory Rate 22 Blood Pressure [Right Arm] 117/62 O2 Sat by Pulse Oximetry 96 Intake and Output: Intake & Output 06/02/24 06/03/24 06/04/24 06/05/24 11:59 11:59 11:59 11:59 Intake Total 1222 / 1222 2956 / 2956 2962 / 2962 Balance 1222 / 1222 2956 / 2956 2962 / 2962 Physical Exam Oriented: Normal Eyes: Normal Ear: Normal Nose: Normal Throat: Normal Respiratory: Normal Cardiovascular: Normal : Normal Auscultation: Bowel Sounds: Normal Tenderness: Diffuse, RUQ, LUQ, LLQ and Epigastric Skin: Normal Musculoskeletal: Right, Left and Leg (Cordlike masses bilaterally on palpation- proven. Improving.) Psychiatric: Normal Mood Description: Calm Affect: Normal Speech Pattern: Clear Laboratory and Diagnostics 06/05/24 05:25 06/05/24 05:25 Labs: Laboratory WBC 8.7 X10^3/uL (3.6-10.0) 06/05/24 05:25 RBC 3.96 X10^6/uL (3.5-5.4) 06/05/24 05:25 Hgb 10.7 g/dL (12.0-16.0) L 06/05/24 05:25 Hct 31.6 % (36.0-47.0) L 06/05/24 05:25 MCV 80.0 fL (80.0-100.0) 06/05/24 05:25 MCH 26.9 pg (27.0-34.0) L 06/05/24 05:25 MCHC 33.7 g/dL (33.0-35.0) 06/05/24 05:25 RDW 16.5 % (11.6-16.5) 06/05/24 05:25 Plt Count 222 X10^3/uL (150.0-450.0) 06/05/24 05:25 MPV 10.0 fL (7.4-11.0) 06/05/24 05:25 Neut % (Auto) 66.9 % (42.0-75.0) 06/05/24 05:25 Lymph % (Auto) 20.5 % (21.0-51.0) L 06/05/24 05:25 [place] % (Auto) 10.0 % (0.0-13.0) 06/05/24 05:25 Eos % (Auto) 2.2 % (0.9-2.9) 06/05/24 05:25 Baso % (Auto) 0.4 % (0.2-1.0) 06/05/24 05:25 Neut # (Auto) 5.8 x10^3/uL (2.2-4.8) H 06/05/24 05:25 Lymph # (Auto) 1.8 X10^3/uL (1.3-2.9) 06/05/24 05:25 [place] # (Auto) 0.9 x10^3/uL (0.3-0.8) H 06/05/24 05:25 Eos # (Auto) 0.2 x10^3/uL (0.0-0.2) 06/05/24 05:25 Baso # (Auto) 0.0 X10^3/uL (0.0-0.1) 06/05/24 05:25 Absolute Nucleated RBC 0.0 /100WBC 06/05/24 05:25 Sodium 142 mmol/L (136-145) 06/05/24 05:25 Corrected Sodium TNP 06/05/24 05:25 Potassium 4.1 mmol/L (3.5-5.1) 06/05/24 05:25 Chloride 107 mmol/L (98-107) 06/05/24 05:25 Carbon Dioxide 25.8 mmol/L (21-32) 06/05/24 05:25 BUN 5 mg/dL (7-18) L 06/05/24 05:25 Creatinine 0.74 mg/dL (0.55-1.02) 06/05/24 05:25 Est GFR (MDRD) Af Amer > 60 (>60) 06/05/24 05:25 Est GFR (MDRD) Non-Af > 60 (>60) 06/05/24 05:25 Glucose 91 mg/dL (65-99) 06/05/24 05:25 Calcium 8.3 mg/dL (8.5-10.1) L 06/05/24 05:25 Corrected Calcium 9.3 mg/dL (8.5-10.1) 06/05/24 05:25 Magnesium 1.9 mg/dL (2.0-2.9) L 06/05/24 05:25 Total Bilirubin 0.10 mg/dL (0.2-1.0) L 06/05/24 05:25 AST 17 Units/L (15-37) 06/05/24 05:25 ALT 16 Units/L (12-78) 06/05/24 05:25 Alkaline Phosphatase 76 Units/L (46-116) 06/05/24 05:25 Total Protein 6.8 g/dL (6.4-8.2) 06/05/24 05:25 Albumin 2.7 g/dL (3.4-5.0) L 06/05/24 05:25 Globulin 4.1 g/dL (2.5-4.5) 06/05/24 05:25 Albumin/Globulin Ratio 0.7 Ratio (1.1-2.1) L 06/05/24 05:25 Amylase 44 Units/L (25-115) 06/04/24 05:30 Lipase 40 Units/L (16-77) 06/04/24 05:30 Specimen Type Clean catch urine 06/02/24 16:31 Urine Color Yellow (YELLOW) 06/02/24 16:31 Urine Appearance Clear (CLEAR) 06/02/24 16:31 Urine pH 6.0 (5.0 - 8.0) 06/02/24 16:31 Ur Specific [place] 1.030 (1.000-1.030) 06/02/24 16:31 Urine Protein Negative (NEGATIVE) 06/02/24 16:31 Urine Glucose (UA) Negative (NEGATIVE) 06/02/24 16:31 Urine Ketones 2+ (NEGATIVE) 06/02/24 16:31 Urine Blood Negative (NEGATIVE) 06/02/24 16:31 Urine Nitrite Negative (NEGATIVE) 06/02/24 16:31 Urine Bilirubin Negative (NEGATIVE) 06/02/24 16:31 Urine Urobilinogen Normal (NORMAL) 06/02/24 16:31 Ur Leukocyte Esterase Negative (NEGATIVE) 06/02/24 16:31 Plan (1) Muscle spasms of both lower extremities: Status: Acute (2) Partial obstruction of small intestine: Status: Acute (3) Abdominal distention: Status: Acute
[2024-06-05] MEDS: DIPRIVAN VIAL 20 ML ONE (11:45)
[2024-06-05] MEDS: FLEET ENEMA ADULT PR ONE (12:37)
--- NOTE | 2024-06-05 14:42 | RAD ---
EXAM: KUB HISTORY: SMALL BOWEL OBSTRUCTIONN ; GERD SX: APPY, ROBEL, CSECTION COMPARISON: 06/04/2024, 06/03/2024, 06/02/2024 TECHNIQUE: A supine view was acquired. FINDINGS: Nonobstructed bowel-gas pattern. Retained contrast in left colon again seen. RUQ clips. IMPRESSION: Nonobstructed bowel-gas pattern. THIS IS AN ELECTRONICALLY VERIFIED FINAL REPORT 06/05/2024 2:29 PM - Electronically signed by Monster Mayfield MD
[2024-06-05] MEDS: MORPHINE SULFATE INJ 4 MG IVP PRN (16:16)
[2024-06-06 06:29] LABS: BASOPHILS % (AUTO) 0.5 % (0.2-1.0); EOSINOPHILS # (AUTO) 0.2 x10^3/uL (0.0-0.2); EOSINOPHILS % (AUTO) 2.6 % (0.9-2.9); HEMATOCRIT 30.7 % (36.0-47.0); HEMOGLOBIN 10.2 g/dL (12.0-16.0); LYMPHOCYTES # (AUTO) 2.1 X10^3/uL (1.3-2.9); LYMPHOCYTES % (AUTO) 24.9 % (21.0-51.0); MEAN CORPUSCULAR HEMOGLOBIN 26.8 pg (27.0-34.0); MEAN CORPUSCULAR HGB CONC 33.4 g/dL (33.0-35.0); MEAN CORPUSCULAR VOLUME 80.3 fL (80.0-100.0); MONOCYTES # (AUTO) 0.9 x10^3/uL (0.3-0.8); MONOCYTES % (AUTO) 11.1 % (0.0-13.0); NEUTROPHILS # (AUTO) 5.1 x10^3/uL (2.2-4.8); NEUTROPHILS % (AUTO) 60.9 % (42.0-75.0); PLATELET COUNT 230 X10^3/uL (150.0-450.0); RED BLOOD COUNT 3.82 X10^6/uL (3.5-5.4); RED CELL DISTRIBUTION WIDTH 16.7 % (11.6-16.5); WHITE BLOOD COUNT 8.3 X10^3/uL (3.6-10.0)
[2024-06-06 06:56] LABS: ALANINE AMINOTRANSFERASE 17 Units/L (12-78); ALBUMIN 2.6 g/dL (3.4-5.0); ALKALINE PHOSPHATASE 76 Units/L (46-116); ASPARTATE AMINO TRANSFERASE 14 Units/L (15-37); BLOOD UREA NITROGEN 5 mg/dL (7-18); CALCIUM 8.1 mg/dL (8.5-10.1); CARBON DIOXIDE 26.1 mmol/L (21-32); CHLORIDE 108 mmol/L (98-107); COR CA(FOR HYPOALB) 9.2 mg/dL (8.5-10.1); GLUCOSE 77 mg/dL (65-99); POTASSIUM 4.2 mmol/L (3.5-5.1); SODIUM 143 mmol/L (136-145); TOTAL PROTEIN 6.6 g/dL (6.4-8.2); eGFR NON BLACK RACES > 60 (>60)
--- NOTE | 2024-06-06 12:44 | CT ---
EXAM: ABDCMEN/PELVIS WITH CON HISTORY: ABD PAIN, SBO; COMPARISON: 06/02/2024 TECHNIQUE: CT of the abdomen and pelvis obtained with IV contrast. Dose reduction techniques including Automated Exposure Control (AEC) and adjustment of mA and kV were utilized. FINDINGS: The visualized portions of the lower thorax demonstrate no acute process. No acute osseous abnormality. The liver, spleen, pancreas, bilateral adrenal glands, and bilateral kidneys demonstrate no acute pro cess. Prior cholecystectomy. No evidence of bowel obstruction. The appendix is not definitively visualized. No secondary signs of appendicitis. Thickened small bowel loops in the pelvis. Large colonic fecal burden. The bladder is unremarkable. The uterus is present. Follicular changes in the ovaries. No free air. Trace likely reactive free fluid in the pelvis. Nonaneurysmal aorta. IMPRESSION: Thickening of the distal small bowel concerning for enteritis. Large colonic fecal burden with probable constipation. THIS IS AN ELECTRONICALLY VERIFIED FINAL REPORT 06/06/2024 12:41 PM - Electronically signed by Sb Plasencia MD
[2024-06-06] MEDS: SOLU-Medrol 40 MG VIAL IVP SCH (14:22)
[2024-06-06] MEDS: ULTRAM PO PRN (14:50)
--- NOTE | 2024-06-06 20:15 | DR.PROGNOT ---
HOSPITAL PROGRESS NOTE Progress Note for Day of: Progress Note Date: 06/06/24 Chief Complaint Chief Complaint: Patient is complaining of mid abdominal pain with nausea, same as before, no vomiting, no bowel movement. KUB showed no evidence of obstruction now. Some residual dye in the left colon. abdominal CT showed SB thickening in the pelvis possible IBD . White count normal, hemoglobin 10.6, liver function tests, serum bilirubin are normal, albumin 2.7 amylase lipase are normal today. Patient is afebrile and stable vital signs. Abdomen soft, somewhat full with diffuse tenderness, no rebound or rigidity, bowel sounds are present. Past Medical Family Social History Past Med/Fam/Surg Hx: No changes since H&P Allergies: Allergies bee pollen Allergy (Severe, Verified 04/18/24 18:12) ANAPHALEXIS REACTION adhesive tape [tape (adhesive)] Allergy (Verified 04/18/24 18:12) rash bee venom protein (honey bee) Allergy (Verified 04/18/24 18:12) ANAPHALEXIS REACTION latex Allergy (Verified 04/18/24 18:12) rash shellfish derived Allergy (Verified 04/18/24 18:12) ANAPHALEXIS REACTION Review Of Systems ROS: No change since H&P Vital Signs Vital Signs: Vital Signs Temperature 98 F Pulse Rate [Left Brachial] 90 Respiratory Rate 18 Respiratory Rate 20 Respiratory Rate 18 Respiratory Rate 20 Respiratory Rate 20 Blood Pressure [Left Arm] 148/80 O2 Sat by Pulse Oximetry 95 Physical Exam Oriented: Normal Eyes: Normal Ear: Normal Nose: Normal Throat: Normal Respiratory: Normal Cardiovascular: Normal : Normal GI:Auscultation: Normal GI:Palpation: Normal GI: Tenderness: Diffuse, RUQ, LUQ, LLQ and Epigastric Skin: Normal Musculoskeletal: Right, Left and Leg (Cordlike masses bilaterally on palpation- proven. Improving.) Psychiatric: Normal Mood Description: Calm Affect: Normal Speech Pattern: Clear and Appropriate Laboratory and Diagnostics 06/06/24 05:20 06/06/24 05:20 Labs: Laboratory WBC 8.3 X10^3/uL (3.6-10.0) 06/06/24 05:20 RBC 3.82 X10^6/uL (3.5-5.4) 06/06/24 05:20 Hgb 10.2 g/dL (12.0-16.0) L 06/06/24 05:20 Hct 30.7 % (36.0-47.0) L 06/06/24 05:20 MCV 80.3 fL (80.0-100.0) 06/06/24 05:20 MCH 26.8 pg (27.0-34.0) L 06/06/24 05:20 MCHC 33.4 g/dL (33.0-35.0) 06/06/24 05:20 RDW 16.7 % (11.6-16.5) H 06/06/24 05:20 Plt Count 230 X10^3/uL (150.0-450.0) 06/06/24 05:20 MPV 10.0 fL (7.4-11.0) 06/06/24 05:20 Neut % (Auto) 60.9 % (42.0-75.0) 06/06/24 05:20 Lymph % (Auto) 24.9 % (21.0-51.0) 06/06/24 05:20 [place] % (Auto) 11.1 % (0.0-13.0) 06/06/24 05:20 Eos % (Auto) 2.6 % (0.9-2.9) 06/06/24 05:20 Baso % (Auto) 0.5 % (0.2-1.0) 06/06/24 05:20 Neut # (Auto) 5.1 x10^3/uL (2.2-4.8) H 06/06/24 05:20 Lymph # (Auto) 2.1 X10^3/uL (1.3-2.9) 06/06/24 05:20 [place] # (Auto) 0.9 x10^3/uL (0.3-0.8) H 06/06/24 05:20 Eos # (Auto) 0.2 x10^3/uL (0.0-0.2) 06/06/24 05:20 Baso # (Auto) 0.0 X10^3/uL (0.0-0.1) 06/06/24 05:20 Absolute Nucleated RBC 0.1 /100WBC 06/06/24 05:20 Sodium 143 mmol/L (136-145) 06/06/24 05:20 Corrected Sodium TNP 06/06/24 05:20 Potassium 4.2 mmol/L (3.5-5.1) 06/06/24 05:20 Chloride 108 mmol/L (98-107) H 06/06/24 05:20 Carbon Dioxide 26.1 mmol/L (21-32) 06/06/24 05:20 BUN 5 mg/dL (7-18) L 06/06/24 05:20 Creatinine 0.80 mg/dL (0.55-1.02) 06/06/24 05:20 Est GFR (MDRD) Af Amer > 60 (>60) 06/06/24 05:20 Est GFR (MDRD) Non-Af > 60 (>60) 06/06/24 05:20 Glucose 77 mg/dL (65-99) 06/06/24 05:20 Calcium 8.1 mg/dL (8.5-10.1) L 06/06/24 05:20 Corrected Calcium 9.2 mg/dL (8.5-10.1) 06/06/24 05:20 Magnesium 1.9 mg/dL (2.0-2.9) L 06/05/24 05:25 Total Bilirubin 0.10 mg/dL (0.2-1.0) L 06/06/24 05:20 AST 14 Units/L (15-37) L 06/06/24 05:20 ALT 17 Units/L (12-78) 06/06/24 05:20 Alkaline Phosphatase 76 Units/L (46-116) 06/06/24 05:20 Total Protein 6.6 g/dL (6.4-8.2) 06/06/24 05:20 Albumin 2.6 g/dL (3.4-5.0) L 06/06/24 05:20 Globulin 4.0 g/dL (2.5-4.5) 06/06/24 05:20 Albumin/Globulin Ratio 0.7 Ratio (1.1-2.1) L 06/06/24 05:20 Amylase 44 Units/L (25-115) 06/04/24 05:30 Lipase 40 Units/L (16-77) 06/04/24 05:30 Specimen Type Clean catch urine 06/02/24 16:31 Urine Color Yellow (YELLOW) 11/11/24 16:31 Urine Appearance Clear (CLEAR) 06/02/24 16:31 Urine pH 6.0 (5.0 - 8.0) 06/02/24 16:31 Ur Specific [place] 1.030 (1.000-1.030) 06/02/24 16:31 Urine Protein Negative (NEGATIVE) 06/02/24 16:31 Urine Glucose (UA) Negative (NEGATIVE) 06/02/24 16:31 Urine Ketones 2+ (NEGATIVE) 06/02/24 16:31 Urine Blood Negative (NEGATIVE) 06/02/24 16: Urine Nitrite Negative (NEGATIVE) 06/02/24 16: Urine Bilirubin Negative (NEGATIVE) 06/02/24 16:31 Urine Urobilinogen Normal (NORMAL) 06/02/24 16: Ur Leukocyte Esterase Negative (NEGATIVE) 06/02/24 16:31 Assessment and Plan 1: Abdominal pain with nausea and vomiting, resolved pancreatitis. Subsiding partial bowel obstruction. Possible inflammatory bowel disease Status post recent laparoscopic cholecystectomy, ERCP, with stenting. To start on IV steroids. on IV fluid. Advance diet to soft as tolerated. Future colonoscopy Problem Patient Problems: Patient Problems (Updated 06/05/24 @ 08:18 by Regan Steven MD) Partial obstruction of small intestine (Acute) K56.600 Abdominal distention (Acute) R14.0 Nausea (Acute) R11.0 Dizziness (Acute) R42
[2024-06-06] MEDS: COLACE CAP 100 MG PO ONE (21:09)
[2024-06-06] MEDS: MILK OF MAGNESIA PO ONE (21:10)
--- NOTE | 2024-06-07 02:08 | EKG ---
Test Reason : Tachycardia, SOB Blood Pressure : */* mmHG Vent. Rate : 105 BPM Atrial Rate : 105 BPM P-R Int : 148 ms QRS Dur : 86 ms QT Int : 378 ms P-R-T Axes : 48 35 34 degrees QTc Int : 499 ms Sinus tachycardia Otherwise normal ECG When compared with ECG of 06-MAR-2024 05:24, Vent. rate has increased BY 53 BPM Non-specific change in ST segment in Inferior leads Nonspecific T wave abnormality now evident in Inferior leads Nonspecific T wave abnormality now evident in Lateral leads Confirmed by Jameson Torres MD ([id number]) on 06/08/2024 11:21:47 AM Referred By: Confirmed By: Jameson Torres MD
[2024-06-07 02:33] LABS: CREATINE KINASE 32 Units/L (26-192)
[2024-06-07 06:40] LABS: BASOPHILS # (AUTO) 0.1 X10^3/uL (0.0-0.1); BASOPHILS % (AUTO) 0.4 % (0.2-1.0); HEMATOCRIT 33.3 % (36.0-47.0); LYMPHOCYTES # (AUTO) 0.8 X10^3/uL (1.3-2.9); LYMPHOCYTES % (AUTO) 5.8 % (21.0-51.0); MEAN CORPUSCULAR HEMOGLOBIN 26.3 pg (27.0-34.0); MEAN CORPUSCULAR VOLUME 79.6 fL (80.0-100.0); MEAN PLATELET VOLUME 10.4 fL (7.4-11.0); MONOCYTES # (AUTO) 0.3 x10^3/uL (0.3-0.8); MONOCYTES % (AUTO) 1.8 % (0.0-13.0); NEUTROPHILS # (AUTO) 12.8 x10^3/uL (2.2-4.8); PLATELET COUNT 245 X10^3/uL (150.0-450.0); RED BLOOD COUNT 4.18 X10^6/uL (3.5-5.4); RED CELL DISTRIBUTION WIDTH 16.8 % (11.6-16.5)
[2024-06-07 06:51] LABS: ALANINE AMINOTRANSFERASE 17 Units/L (12-78); ALBUMIN 2.6 g/dL (3.4-5.0); ALKALINE PHOSPHATASE 83 Units/L (46-116); ASPARTATE AMINO TRANSFERASE 17 Units/L (15-37); BLOOD UREA NITROGEN 6 mg/dL (7-18); CALCIUM 8.7 mg/dL (8.5-10.1); CARBON DIOXIDE 25.5 mmol/L (21-32); CHLORIDE 104 mmol/L (98-107); COR CA(FOR HYPOALB) 9.8 mg/dL (8.5-10.1); COR NA(FOR HYPERGLY) 139 mmol/L (136-145); CREATININE 0.83 mg/dL (0.55-1.02); GLUCOSE 140 mg/dL (65-99); POTASSIUM 4.5 mmol/L (3.5-5.1); SODIUM 138 mmol/L (136-145); TOTAL PROTEIN 7.4 g/dL (6.4-8.2); eGFR NON BLACK RACES > 60 (>60)
[2024-06-07 07:34] LABS: HYPOCHROMASIA SLIGHT; PLATELET MORPHOLOGY COMMENT NORMAL (NORMAL)
[2024-06-07 07:35] LABS: MICROCYTOSIS SLIGHT
[2024-06-07] MEDS: LINZESS PO ONE (09:40)
--- NOTE | 2024-06-07 10:31 | DR.PROGNOT ---
HOSPITAL PROGRESS NOTE Progress Note for Day of: Progress Note Date: 06/07/24 Chief Complaint Chief Complaint: Patient is complaining of mid abdominal pain with nausea and food intolerance, , no vomiting, no bowel movement.. Some residual dye in the left colon. abdominal CT showed SB thickening in the pelvis possible IBD . White count 95514 which could be from steroids, hemoglobin 10.6, liver function tests, serum bilirubin are normal, albumin 2.6 amylase lipase are normal today. Patient is afebrile and stable vital signs. Abdomen soft, somewhat full with diffuse tenderness, no rebound or rigidity, bowel sounds are present. Past Medical Family Social History Past Med/Fam/Surg Hx: No changes since H&P Allergies: Allergies bee pollen Allergy (Severe, Verified 04/18/24 18:12) ANAPHALEXIS REACTION adhesive tape [tape (adhesive)] Allergy (Verified 04/18/24 18:12) rash bee venom protein (honey bee) Allergy (Verified 04/18/24 18:12) ANAPHALEXIS REACTION latex Allergy (Verified 04/18/24 18:12) rash shellfish derived Allergy (Verified 04/18/24 18:12) ANAPHALEXIS REACTION Review Of Systems ROS: No change since H&P Vital Signs Vital Signs: Vital Signs Temperature 97.6 F Pulse Rate [Left Brachial] 99 Respiratory Rate 20 Respiratory Rate 20 Respiratory Rate 18 Respiratory Rate 20 Blood Pressure [Right Arm] 131/77 O2 Sat by Pulse Oximetry 97 Physical Exam Oriented: Normal Eyes: Normal Ear: Normal Nose: Normal Throat: Normal Respiratory: Normal Cardiovascular: Normal : Normal GI:Auscultation: Normal GI:Palpation: Normal GI: Tenderness: Diffuse, RUQ, LUQ, LLQ and Epigastric Skin: Normal Musculoskeletal: Right, Left and Leg (Cordlike masses bilaterally on palpation- proven. Improving.) Psychiatric: Normal Mood Description: Calm Affect: Normal Speech Pattern: Clear and Appropriate Laboratory and Diagnostics 06/07/24 05:43 06/07/24 05:43 Labs: Laboratory WBC 14.0 X10^3/uL (3.6-10.0) H 06/07/24 05:43 RBC 4.18 X10^6/uL (3.5-5.4) 06/07/24 05:43 Hgb 11.0 g/dL (12.0-16.0) L 06/07/24 05:43 Hct 33.3 % (36.0-47.0) L 06/07/24 05:43 MCV 79.6 fL (80.0-100.0) L 06/07/24 05:43 MCH 26.3 pg (27.0-34.0) L 06/07/24 05:43 MCHC 33.0 g/dL (33.0-35.0) 06/07/24 05:43 RDW 16.8 % (11.6-16.5) H 06/07/24 05:43 Plt Count 245 X10^3/uL (150.0-450.0) 06/07/24 05:43 Plt Count Comment Adequate (ADEQUATE) 06/07/24 05:43 MPV 10.4 fL (7.4-11.0) 06/07/24 05:43 Neut % (Auto) 92.0 % (42.0-75.0) H 06/07/24 05:43 Lymph % (Auto) 5.8 % (21.0-51.0) L 06/07/24 05:43 [place] % (Auto) 1.8 % (0.0-13.0) 06/07/24 05:43 Eos % (Auto) 0.0 % (0.9-2.9) L 06/07/24 05:43 Baso % (Auto) 0.4 % (0.2-1.0) 06/07/24 05:43 Neut # (Auto) 12.8 x10^3/uL (2.2-4.8) H 06/07/24 05:43 Lymph # (Auto) 0.8 X10^3/uL (1.3-2.9) L 06/07/24 05:43 [place] # (Auto) 0.3 x10^3/uL (0.3-0.8) 06/07/24 05:43 Eos # (Auto) 0.0 x10^3/uL (0.0-0.2) 06/07/24 05:43 Baso # (Auto) 0.1 X10^3/uL (0.0-0.1) 06/07/24 05:43 Absolute Nucleated RBC 0.0 /100WBC 06/07/24 05:43 Total Counted 100 06/07/24 05:43 Neutrophils % (Manual) 94 % (39-76) H 06/07/24 05:43 Lymphocytes % (Manual) 5 % (13-43) L 06/07/24 05:43 Monocytes % (Manual) 1 % (4-9) L 06/07/24 05:43 Plt Morphology Comment Normal (NORMAL) 06/07/24 05:43 RBC Morphology Abnormal (NORMAL) A 06/07/24 05:43 Hypochromasia Slight A 06/07/24 05:43 Microcytosis Slight A 06/07/24 05:43 Sodium 138 mmol/L (136-145) 06/07/24 05:43 Corrected Sodium 139 mmol/L (136-145) 06/07/24 05:43 Potassium 4.5 mmol/L (3.5-5.1) 06/07/24 05:43 Chloride 104 mmol/L (98-107) 06/07/24 05:43 Carbon Dioxide 25.5 mmol/L (21-32) 06/07/24 05:43 BUN 6 mg/dL (7-18) L 06/07/24 05:43 Creatinine 0.83 mg/dL (0.55-1.02) 06/07/24 05:43 Est GFR (MDRD) Af Amer > 60 (>60) 06/07/24 05:43 Est GFR (MDRD) Non-Af > 60 (>60) 06/07/24 05:43 Glucose 140 mg/dL (65-99) H 06/07/24 05:43 POC Glucose (mg/dL) 168 mg/dL (65-99) H 06/07/24 02:37 Calcium 8.7 mg/dL (8.5-10.1) 06/07/24 05:43 Corrected Calcium 9.8 mg/dL (8.5-10.1) 06/07/24 05:43 Magnesium 1.9 mg/dL (2.0-2.9) L 06/05/24 05:25 Total Bilirubin 0.20 mg/dL (0.2-1.0) 06/07/24 05:43 AST 17 Units/L (15-37) 06/07/24 05:43 ALT 17 Units/L (12-78) 06/07/24 05:43 Alkaline Phosphatase 83 Units/L (46-116) 06/07/24 05:43 Creatine Kinase 32 Units/L (26-192) 06/07/24 02:10 Troponin I High Sens < 4.0 ng/L (4.0-60.0) L 06/07/24 02:10 Total Protein 7.4 g/dL (6.4-8.2) 06/07/24 05:43 Albumin 2.6 g/dL (3.4-5.0) L 06/07/24 05:43 Globulin 4.8 g/dL (2.5-4.5) H 06/07/24 05:43 Albumin/Globulin Ratio 0.5 Ratio (1.1-2.1) L 06/07/24 05:43 Amylase 44 Units/L (25-115) 06/04/24 05:30 Lipase 40 Units/L (16-77) 06/04/24 05:30 Specimen Type Clean catch urine 06/02/24 16:31 Urine Color Yellow (YELLOW) 06/02/24 16:31 Urine Appearance Clear (CLEAR) 06/02/24 16:31 Urine pH 6.0 (5.0 - 8.0) 06/02/24 16:31 Ur Specific [place] 1.030 (1.000-1.030) 06/02/24 16:31 Urine Protein Negative (NEGATIVE) 06/02/24 16:31 Urine Glucose (UA) Negative (NEGATIVE) 06/02/24 16:31 Urine Ketones 2+ (NEGATIVE) 06/02/24 16:31 Urine Blood Negative (NEGATIVE) 06/02/24 16:31 Urine Nitrite Negative (NEGATIVE) 06/02/24 16:31 Urine Bilirubin Negative (NEGATIVE) 06/02/24 16:31 Urine Urobilinogen Normal (NORMAL) 06/02/24 16:31 Ur Leukocyte Esterase Negative (NEGATIVE) 06/02/24 16:31 Assessment and Plan 1: Abdominal pain with nausea and , resolved pancreatitis. Subsiding partial bowel obstruction. Possible inflammatory bowel disease .on IV steroids. on IV fluid. Advance diet to soft as tolerated. colonoscopy next week. Problem Patient Problems: Patient Problems Partial obstruction of small intestine (Acute) K56.600 Abdominal distention (Acute) R14.0 Nausea (Acute) R11.0 Dizziness (Acute) R42
[2024-06-07] MEDS: REQUIP PO SCH (21:34)
[2024-06-08 06:25] LABS: BASOPHILS % (AUTO) 0.1 % (0.2-1.0); HEMATOCRIT 30.3 % (36.0-47.0); LYMPHOCYTES % (AUTO) 7.6 % (21.0-51.0); MEAN CORPUSCULAR HEMOGLOBIN 26.4 pg (27.0-34.0); MEAN CORPUSCULAR HGB CONC 32.9 g/dL (33.0-35.0); MEAN CORPUSCULAR VOLUME 80.4 fL (80.0-100.0); MEAN PLATELET VOLUME 10.4 fL (7.4-11.0); MONOCYTES # (AUTO) 0.4 x10^3/uL (0.3-0.8); MONOCYTES % (AUTO) 3.3 % (0.0-13.0); NEUTROPHILS # (AUTO) 11.3 x10^3/uL (2.2-4.8); PLATELET COUNT 226 X10^3/uL (150.0-450.0); RED BLOOD COUNT 3.77 X10^6/uL (3.5-5.4); RED CELL DISTRIBUTION WIDTH 16.8 % (11.6-16.5); WHITE BLOOD COUNT 12.7 X10^3/uL (3.6-10.0)
[2024-06-08 06:42] LABS: ALANINE AMINOTRANSFERASE 16 Units/L (12-78); ALBUMIN 2.5 g/dL (3.4-5.0); ALKALINE PHOSPHATASE 69 Units/L (46-116); ASPARTATE AMINO TRANSFERASE 12 Units/L (15-37); BLOOD UREA NITROGEN 8 mg/dL (7-18); CALCIUM 8.3 mg/dL (8.5-10.1); CARBON DIOXIDE 27.2 mmol/L (21-32); CHLORIDE 107 mmol/L (98-107); COR CA(FOR HYPOALB) 9.5 mg/dL (8.5-10.1); COR NA(FOR HYPERGLY) 141 mmol/L (136-145); CREATININE 0.81 mg/dL (0.55-1.02); GLUCOSE 130 mg/dL (65-99); POTASSIUM 4.2 mmol/L (3.5-5.1); SODIUM 140 mmol/L (136-145); TOTAL PROTEIN 6.9 g/dL (6.4-8.2); eGFR NON BLACK RACES > 60 (>60)
[2024-06-08] MEDS: COLACE CAP 100 MG PO SCH (10:59)
[2024-06-08] MEDS: LINZESS PO ONE (10:59)
--- NOTE | 2024-06-08 11:15 | DR.PROGNOT ---
HOSPITAL PROGRESS NOTE Progress Note for Day of: Progress Note Date: 06/08/24 Chief Complaint Chief Complaint: Patient is complaining of mid abdominal pain with nausea and food intolerance, , no vomiting, no bowel movement for several days.. Some residual dye in the left colon. abdominal CT showed SB thickening in the pelvis possible IBD . White count 12.7. which could be from steroids, hemoglobin 10., liver function tests, serum bilirubin are normal, albumin 2.6 amylase lipase are normal today. Blood sugar 130 Patient is afebrile and stable vital signs. Abdomen soft, somewhat full with diffuse tenderness, no rebound or rigidity, bowel sounds are present. Past Medical Family Social History Past Med/Fam/Surg Hx: No changes since H&P Allergies: Allergies bee pollen Allergy (Severe, Verified 04/18/24 18:12) ANAPHALEXIS REACTION adhesive tape [tape (adhesive)] Allergy (Verified 04/18/24 18:12) rash bee venom protein (honey bee) Allergy (Verified 04/18/24 18:12) ANAPHALEXIS REACTION latex Allergy (Verified 04/18/24 18:12) rash shellfish derived Allergy (Verified 04/18/24 18:12) ANAPHALEXIS REACTION Review Of Systems ROS: No change since H&P Vital Signs Vital Signs: Vital Signs Temperature 97.8 F Temperature 97.9 F Pulse Rate [Left Brachial] 54 Pulse Rate [Left Brachial] 51 Respiratory Rate 16 Respiratory Rate 18 Respiratory Rate 19 Blood Pressure [Right Arm] 133/66 Blood Pressure [Right Arm] 125/62 O2 Sat by Pulse Oximetry 98 O2 Sat by Pulse Oximetry 97 Physical Exam Oriented: Normal Eyes: Normal Ear: Normal Nose: Normal Throat: Normal Respiratory: Normal Cardiovascular: Normal : Normal GI:Auscultation: Normal GI:Palpation: Normal GI: Tenderness: Diffuse, RUQ, LUQ, LLQ and Epigastric Skin: Normal Musculoskeletal: Right, Left and Leg (Cordlike masses bilaterally on palpation-proven. Improving.) Psychiatric: Normal Mood Description: Calm Affect: Normal Speech Pattern: Clear and Appropriate Laboratory and Diagnostics 06/08/24 05:53 06/08/24 05:53 Labs: Laboratory WBC 12.7 X10^3/uL (3.6-10.0) H 06/08/24 05:53 RBC 3.77 X10^6/uL (3.5-5.4) 06/08/24 05:53 Hgb 10.0 g/dL (12.0-16.0) L 06/08/24 05:53 Hct 30.3 % (36.0-47.0) L 06/08/24 05:53 MCV 80.4 fL (80.0-100.0) 06/08/24 05:53 MCH 26.4 pg (27.0-34.0) L 06/08/24 05:53 MCHC 32.9 g/dL (33.0-35.0) L 06/08/24 05:53 RDW 16.8 % (11.6-16.5) H 06/08/24 05:53 Plt Count 226 X10^3/uL (150.0-450.0) 06/08/24 05:53 Plt Count Comment Adequate (ADEQUATE) 06/07/24 05:43 MPV 10.4 fL (7.4-11.0) 06/08/24 05:53 Neut % (Auto) 89.0 % (42.0-75.0) H 06/08/24 05:53 Lymph % (Auto) 7.6 % (21.0-51.0) L 06/08/24 05:53 [place] % (Auto) 3.3 % (0.0-13.0) 06/08/24 05:53 Eos % (Auto) 0.0 % (0.9-2.9) L 06/08/24 05:53 Baso % (Auto) 0.1 % (0.2-1.0) L 06/08/24 05:53 Neut # (Auto) 11.3 x10^3/uL (2.2-4.8) H 06/08/24 05:53 Lymph # (Auto) 1.0 X10^3/uL (1.3-2.9) L 06/08/24 05:53 [place] # (Auto) 0.4 x10^3/uL (0.3-0.8) 06/08/24 05:53 Eos # (Auto) 0.0 x10^3/uL (0.0-0.2) 06/08/24 05:53 Baso # (Auto) 0.0 X10^3/uL (0.0-0.1) 06/08/24 05:53 Absolute Nucleated RBC 0.0 /100WBC 06/08/24 05:53 Total Counted 100 06/07/24 05:43 Neutrophils % (Manual) 94 % (39-76) H 06/07/24 05:43 Lymphocytes % (Manual) 5 % (13-43) L 06/07/24 05:43 Monocytes % (Manual) 1 % (4-9) L 06/07/24 05:43 Plt Morphology Comment Normal (NORMAL) 06/07/24 05:43 RBC Morphology Abnormal (NORMAL) A 06/07/24 05:43 Hypochromasia Slight A 06/07/24 05:43 Microcytosis Slight A 06/07/24 05:43 Sodium 140 mmol/L (136-145) 06/08/24 05:53 Corrected Sodium 141 mmol/L (136-145) 06/08/24 05:53 Potassium 4.2 mmol/L (3.5-5.1) 06/08/24 05:53 Chloride 107 mmol/L (98-107) 06/08/24 05:53 Carbon Dioxide 27.2 mmol/L (21-32) 06/08/24 05:53 BUN 8 mg/dL (7-18) 06/08/24 05:53 Creatinine 0.81 mg/dL (0.55-1.02) 06/08/24 05:53 Est GFR (MDRD) Af Amer > 60 (>60) 06/08/24 05:53 Est GFR (MDRD) Non-Af > 60 (>60) 06/08/24 05:53 Glucose 130 mg/dL (65-99) H 06/08/24 05:53 POC Glucose (mg/dL) 168 mg/dL (65-99) H 06/07/24 02:37 Calcium 8.3 mg/dL (8.5-10.1) L 06/08/24 05:53 Corrected Calcium 9.5 mg/dL (8.5-10.1) 06/08/24 05:53 Magnesium 1.9 mg/dL (2.0-2.9) L 06/05/24 05:25 Total Bilirubin 0.10 mg/dL (0.2-1.0) L 06/08/24 05:53 AST 12 Units/L (15-37) L 06/08/24 05:53 ALT 16 Units/L (12-78) 06/08/24 05:53 Alkaline Phosphatase 69 Units/L (46-116) 06/08/24 05:53 Creatine Kinase 32 Units/L (26-192) 06/07/24 02:10 Troponin I High Sens < 4.0 ng/L (4.0-60.0) L 06/07/24 02:10 Total Protein 6.9 g/dL (6.4-8.2) 06/08/24 05:53 Albumin 2.5 g/dL (3.4-5.0) L 06/08/24 05:53 Globulin 4.4 g/dL (2.5-4.5) 06/08/24 05:53 Albumin/Globulin Ratio 0.6 Ratio (1.1-2.1) L 06/08/24 05:53 Amylase 44 Units/L (25-115) 06/04/24 05:30 Lipase 40 Units/L (16-77) 06/04/24 05:30 Specimen Type Clean catch urine 06/02/24 16:31 Urine Color Yellow (YELLOW) 06/02/24 16:31 Urine Appearance Clear (CLEAR) 06/02/24 16:31 Urine pH 6.0 (5.0 - 8.0) 06/02/24 16:31 Ur Specific [place] 1.030 (1.000-1.030) 06/02/24 16:31 Urine Protein Negative (NEGATIVE) 06/02/24 16:31 Urine Glucose (UA) Negative (NEGATIVE) 06/02/24 16:31 Urine Ketones 2+ (NEGATIVE) 06/02/24 16:31 Urine Blood Negative (NEGATIVE) 06/02/24 16:31 Urine Nitrite Negative (NEGATIVE) 06/02/24 16:31 Urine Bilirubin Negative (NEGATIVE) 06/02/24 16:31 Urine Urobilinogen Normal (NORMAL) 06/02/24 16:31 Ur Leukocyte Esterase Negative (NEGATIVE) 06/02/24 16:31 Assessment and Plan 1: Abdominal pain with nausea and , resolved pancreatitis. Subsiding partial bowel obstruction. Possible inflammatory bowel disease .on IV steroids. on IV fluid. Advance diet to soft as tolerated. colonoscopy next week. 2: Constipation for several days. Will give SS enema. Problem Patient Problems: Patient Problems Partial obstruction of small intestine (Acute) K56.600 Abdominal distention (Acute) R14.0 Nausea (Acute) R11.0 Dizziness (Acute) R42
--- NOTE | 2024-06-08 12:52 | RAD ---
EXAM:KUB x-ray one viewHISTORY:PARTIAL SMALL BOWEL OBSTRUCTION; pt given an enema at 9am. pt states she has not had a bowel movement yet -COMPARISON:CT 06/06/2024FINDINGS:There is moderate constipation in the transverse and descending colon with little retained fecal material in the sigmoid colon. No fecal material is seen in the rectum. No small bowel dilation is seen.IMPRESSION:Moderate constipation is present in the transverse and descending colon with minimal stool in the sigmoid colon.THIS IS AN ELECTRONICALLY VERIFIED FINAL AGELIM4606/08/2024 12:44 PM - Electronically signed by Andrez Hickey MD
[2024-06-08] MEDS: CITROMA PO ONE (15:20)
--- NOTE | 2024-06-08 16:11 | EKG ---
Test Reason : bradycardia Blood Pressure : */* mmHG Vent. Rate : 46 BPM Atrial Rate : 46 BPM P-R Int : 128 ms QRS Dur : 88 ms QT Int : 476 ms P-R-T Axes : 31 38 58 degrees QTc Int : 416 ms Sinus bradycardia Otherwise normal ECG When compared with ECG of 07-JUN-2024 01:52, Vent. rate has decreased BY 59 BPM Nonspecific T wave abnormality no longer evident in Inferior leads Nonspecific T wave abnormality no longer evident in Lateral leads QT has shortened Confirmed by Jameson Torres MD ([id number]) on 06/09/2024 7:27:15 AM Referred By: Confirmed By: Jameson Torres MD
[2024-06-09 06:01] LABS: BASOPHILS % (AUTO) 0.4 % (0.2-1.0); HEMATOCRIT 30.7 % (36.0-47.0); LYMPHOCYTES # (AUTO) 1.1 X10^3/uL (1.3-2.9); LYMPHOCYTES % (AUTO) 9.6 % (21.0-51.0); MEAN CORPUSCULAR HGB CONC 32.7 g/dL (33.0-35.0); MEAN CORPUSCULAR VOLUME 79.4 fL (80.0-100.0); MEAN PLATELET VOLUME 10.4 fL (7.4-11.0); MONOCYTES # (AUTO) 0.7 x10^3/uL (0.3-0.8); NEUTROPHILS # (AUTO) 10.1 x10^3/uL (2.2-4.8); PLATELET COUNT 244 X10^3/uL (150.0-450.0); RED BLOOD COUNT 3.86 X10^6/uL (3.5-5.4); RED CELL DISTRIBUTION WIDTH 16.9 % (11.6-16.5)
[2024-06-09 06:13] LABS: ALANINE AMINOTRANSFERASE 41 Units/L (12-78); ALBUMIN 2.7 g/dL (3.4-5.0); ALKALINE PHOSPHATASE 78 Units/L (46-116); ASPARTATE AMINO TRANSFERASE 32 Units/L (15-37); BLOOD UREA NITROGEN 10 mg/dL (7-18); CALCIUM 8.3 mg/dL (8.5-10.1); CARBON DIOXIDE 28.1 mmol/L (21-32); CHLORIDE 104 mmol/L (98-107); COR CA(FOR HYPOALB) 9.3 mg/dL (8.5-10.1); COR NA(FOR HYPERGLY) 141 mmol/L (136-145); CREATININE 0.85 mg/dL (0.55-1.02); GLUCOSE 117 mg/dL (65-99); POTASSIUM 3.9 mmol/L (3.5-5.1); SODIUM 141 mmol/L (136-145); eGFR NON BLACK RACES > 60 (>60)
[2024-06-09] MEDS: SUPREP BOWEL PREP KIT PO SCH (12:31)
--- NOTE | 2024-06-09 15:41 | EKG ---
Test Reason : Chest pain Blood Pressure : */* mmHG Vent. Rate : 50 BPM Atrial Rate : 50 BPM P-R Int : 130 ms QRS Dur : 90 ms QT Int : 472 ms P-R-T Axes : 24 25 41 degrees QTc Int : 430 ms Sinus bradycardia Otherwise normal ECG When compared with ECG of 08-JUN-2024 15:55, No significant change was found Confirmed by Jameson Torres MD ([id number]) on 06/10/2024 7:43:57 AM Referred By: Confirmed By: Jameson Torres MD
--- NOTE | 2024-06-09 16:45 | DR.PROGNOT ---
HOSPITAL PROGRESS NOTE Progress Note for Day of: Progress Note Date: 06/09/24 Chief Complaint Chief Complaint: Patient is anxious and complaining of mid abdominal pain with nausea and food intolerance, had small BM bowel movement with enema.. White count 12.7. which could be from steroids, hemoglobin 10., liver function tests, serum bilirubin are normal, albumin 2.6 amylase lipase are normal today. Blood sugar 130 Patient is afebrile and stable vital signs. Abdomen soft, somewhat full with diffuse tenderness, no rebound or rigidity, bowel sounds are present. Past Medical Family Social History Past Med/Fam/Surg Hx: No changes since H&P Allergies: Allergies bee pollen Allergy (Severe, Verified 04/18/24 18:12) ANAPHALEXIS REACTION adhesive tape [tape (adhesive)] Allergy (Verified 04/18/24 18:12) rash bee venom protein (honey bee) Allergy (Verified 04/18/24 18:12) ANAPHALEXIS REACTION latex Allergy (Verified 04/18/24 18:12) rash shellfish derived Allergy (Verified 04/18/24 18:12) ANAPHALEXIS REACTION Review Of Systems ROS: No change since H&P Vital Signs Vital Signs: Vital Signs Temperature 98.1 F Pulse Rate [Left Brachial] 53 Respiratory Rate 20 Blood Pressure [Left Arm] 139/63 O2 Sat by Pulse Oximetry 97 Physical Exam Oriented: Normal Eyes: Normal Ear: Normal Nose: Normal Throat: Normal Respiratory: Normal Cardiovascular: Normal : Normal GI:Auscultation: Normal GI:Palpation: Normal GI: Tenderness: Diffuse, RUQ, LUQ, LLQ and Epigastric Skin: Normal Musculoskeletal: Right, Left and Leg (Cordlike masses bilaterally on palpation- proven. Improving.) Psychiatric: Normal Mood Description: Calm Affect: Normal Speech Pattern: Clear and Appropriate Laboratory and Diagnostics 06/09/24 05:45 06/09/24 05:45 Labs: Laboratory WBC 12.0 X10^3/uL (3.6-10.0) H 06/09/24 05:45 RBC 3.86 X10^6/uL (3.5-5.4) 06/09/24 05:45 Hgb 10.0 g/dL (12.0-16.0) L 06/09/24 05:45 Hct 30.7 % (36.0-47.0) L 06/09/24 05:45 MCV 79.4 fL (80.0-100.0) L 06/09/24 05:45 MCH 26.0 pg (27.0-34.0) L 06/09/24 05:45 MCHC 32.7 g/dL (33.0-35.0) L 06/09/24 05:45 RDW 16.9 % (11.6-16.5) H 06/09/24 05:45 Plt Count 244 X10^3/uL (150.0-450.0) 06/09/24 05:45 Plt Count Comment Adequate (ADEQUATE) 06/07/24 05:43 MPV 10.4 fL (7.4-11.0) 06/09/24 05:45 Neut % (Auto) 84.0 % (42.0-75.0) H 06/09/24 05:45 Lymph % (Auto) 9.6 % (21.0-51.0) L 06/09/24 05:45 [place] % (Auto) 6.0 % (0.0-13.0) 06/09/24 05:45 Eos % (Auto) 0.0 % (0.9-2.9) L 06/09/24 05:45 Baso % (Auto) 0.4 % (0.2-1.0) 06/09/24 05:45 Neut # (Auto) 10.1 x10^3/uL (2.2-4.8) H 06/09/24 05:45 Lymph # (Auto) 1.1 X10^3/uL (1.3-2.9) L 06/09/24 05:45 [place] # (Auto) 0.7 x10^3/uL (0.3-0.8) 06/09/24 05:45 Eos # (Auto) 0.0 x10^3/uL (0.0-0.2) 06/09/24 05:45 Baso # (Auto) 0.0 X10^3/uL (0.0-0.1) 06/09/24 05:45 Absolute Nucleated RBC 0.1 /100WBC 06/09/24 05:45 Total Counted 100 06/07/24 05:43 Neutrophils % (Manual) 94 % (39-76) H 06/07/24 05:43 Lymphocytes % (Manual) 5 % (13-43) L 06/07/24 05:43 Monocytes % (Manual) 1 % (4-9) L 06/07/24 05:43 Plt Morphology Comment Normal (NORMAL) 06/07/24 05:43 RBC Morphology Abnormal (NORMAL) A 06/07/24 05:43 Hypochromasia Slight A 06/07/24 05:43 Microcytosis Slight A 06/07/24 05:43 Sodium 141 mmol/L (136-145) 06/09/24 05:45 Corrected Sodium 141 mmol/L (136-145) 06/09/24 05:45 Potassium 3.9 mmol/L (3.5-5.1) 06/09/24 05:45 Chloride 104 mmol/L (98-107) 06/09/24 05:45 Carbon Dioxide 28.1 mmol/L (21-32) 06/09/24 05:45 BUN 10 mg/dL (7-18) 06/09/24 05:45 Creatinine 0.85 mg/dL (0.55-1.02) 06/09/24 05:45 Est GFR (MDRD) Af Amer > 60 (>60) 06/09/24 05:45 Est GFR (MDRD) Non-Af > 60 (>60) 06/09/24 05:45 Glucose 117 mg/dL (65-99) H 06/09/24 05:45 POC Glucose (mg/dL) 168 mg/dL (65-99) H 06/07/24 02:37 Calcium 8.3 mg/dL (8.5-10.1) L 06/09/24 05:45 Corrected Calcium 9.3 mg/dL (8.5-10.1) 06/09/24 05:45 Magnesium 1.9 mg/dL (2.0-2.9) L 06/05/24 05:25 Total Bilirubin 0.10 mg/dL (0.2-1.0) L 06/09/24 05:45 AST 32 Units/L (15-37) 06/09/24 05:45 ALT 41 Units/L (12-78) 06/09/24 05:45 Alkaline Phosphatase 78 Units/L (46-116) 06/09/24 05:45 Creatine Kinase 32 Units/L (26-192) 06/07/24 02:10 Troponin I High Sens 4.9 ng/L (4.0-60.0) 06/09/24 15:21 Total Protein 7.0 g/dL (6.4-8.2) 06/09/24 05:45 Albumin 2.7 g/dL (3.4-5.0) L 06/09/24 05:45 Globulin 4.3 g/dL (2.5-4.5) 06/09/24 05:45 Albumin/Globulin Ratio 0.6 Ratio (1.1-2.1) L 06/09/24 05:45 Amylase 44 Units/L (25-115) 06/04/24 05:30 Lipase 40 Units/L (16-77) 06/04/24 05:30 Specimen Type Clean catch urine 06/02/24 16:31 Urine Color Yellow (YELLOW) 06/02/24 16:31 Urine Appearance Clear (CLEAR) 06/02/24 16:31 Urine pH 6.0 (5.0 - 8.0) 06/02/24 16:31 Ur Specific [place] 1.030 (1.000-1.030) 06/02/24 16:31 Urine Protein Negative (NEGATIVE) 06/02/24 16:31 Urine Glucose (UA) Negative (NEGATIVE) 06/02/24 16:31 Urine Ketones 2+ (NEGATIVE) 06/02/24 16:31 Urine Blood Negative (NEGATIVE) 06/02/24 16:31 Urine Nitrite Negative (NEGATIVE) 06/02/24 16:31 Urine Bilirubin Negative (NEGATIVE) 06/02/24 16:31 Urine Urobilinogen Normal (NORMAL) 06/02/24 16:31 Ur Leukocyte Esterase Negative (NEGATIVE) 06/02/24 16:31 EVAN Screen See scanned report 06/05/24 05:25 Assessment and Plan 1: Abdominal pain with nausea and , resolved pancreatitis. Subsiding partial bowel obstruction. Possible inflammatory bowel disease .on IV steroids. on IV fluid. Advance diet to soft as tolerated. colonoscopy on Sunday .. on bowel prep with Suprep 2: Constipation for several days. Will give SS enema. Problem Patient Problems: Patient Problems Partial obstruction of small intestine (Acute) K56.600 Abdominal distention (Acute) R14.0 Nausea (Acute) R11.0 Dizziness (Acute) R42
[2024-06-09] MEDS: PROTONIX TAB 40 MG PO ONE (22:48)
[2024-06-10 06:01] LABS: BASOPHILS # (AUTO) 0.1 X10^3/uL (0.0-0.1); BASOPHILS % (AUTO) 0.5 % (0.2-1.0); EOSINOPHILS % (AUTO) 0.3 % (0.9-2.9); HEMATOCRIT 30.8 % (36.0-47.0); HEMOGLOBIN 10.3 g/dL (12.0-16.0); LYMPHOCYTES # (AUTO) 3.3 X10^3/uL (1.3-2.9); LYMPHOCYTES % (AUTO) 28.8 % (21.0-51.0); MEAN CORPUSCULAR HEMOGLOBIN 26.3 pg (27.0-34.0); MEAN CORPUSCULAR HGB CONC 33.3 g/dL (33.0-35.0); MEAN CORPUSCULAR VOLUME 78.8 fL (80.0-100.0); MEAN PLATELET VOLUME 10.4 fL (7.4-11.0); MONOCYTES # (AUTO) 1.3 x10^3/uL (0.3-0.8); MONOCYTES % (AUTO) 11.3 % (0.0-13.0); NEUTROPHILS # (AUTO) 6.8 x10^3/uL (2.2-4.8); NEUTROPHILS % (AUTO) 59.1 % (42.0-75.0); PLATELET COUNT 242 X10^3/uL (150.0-450.0); RED BLOOD COUNT 3.91 X10^6/uL (3.5-5.4); RED CELL DISTRIBUTION WIDTH 16.7 % (11.6-16.5); WHITE BLOOD COUNT 11.6 X10^3/uL (3.6-10.0)
[2024-06-10 06:23] LABS: ALANINE AMINOTRANSFERASE 85 Units/L (12-78); ALBUMIN 2.8 g/dL (3.4-5.0); ALKALINE PHOSPHATASE 76 Units/L (46-116); ASPARTATE AMINO TRANSFERASE 47 Units/L (15-37); BLOOD UREA NITROGEN 13 mg/dL (7-18); CALCIUM 8.2 mg/dL (8.5-10.1); CARBON DIOXIDE 31.2 mmol/L (21-32); CHLORIDE 104 mmol/L (98-107); COR CA(FOR HYPOALB) 9.2 mg/dL (8.5-10.1); CREATININE 0.97 mg/dL (0.55-1.02); GLUCOSE 84 mg/dL (65-99); POTASSIUM 3.4 mmol/L (3.5-5.1); SODIUM 142 mmol/L (136-145); TOTAL PROTEIN 6.7 g/dL (6.4-8.2); eGFR NON BLACK RACES > 60 (>60)
--- NOTE | 2024-06-10 07:46 | RAD ---
EXAM:KUBHISTORY:Partial small bowel obstructionCOMPARISON:06/08/2024FINDINGS: abnormal calcifications are identified. Previously noted colonic stool no longer identified. Regional skeleton is intact.IMPRESSION:Unremarkable KUBTHIS IS AN ELECTRONICALLY VERIFIED FINAL [id number]/10/2024 7:42 AM - Electronically signed by Sb Plasencia MD
--- NOTE | 2024-06-10 12:36 | PCM.PROG ---
Progress Note Progress Note for Day of Date of Exam: 06/09/24 Subjective Subjective: Flakita Nash is experiencing severe abdominal cramps. She reported that her bowels were active over the weekend, with a small amount of output. The patient described the pain as "hurting so bad." She attempted to walk around yesterday to stimulate bowel movements, but the cramps persisted. Flakita does not currently feel the need to use the bathroom, but is in significant pain. The cramping appears to be related to the medication given to stimulate bowel movements. Past Medical Family Social History Past Med/Fam/Surg Hx: No changes since H&P Allergies: Allergies bee pollen Allergy (Severe, Verified 04/18/24 18:12) ANAPHALEXIS REACTION adhesive tape [tape (adhesive)] Allergy (Verified 04/18/24 18:12) rash bee venom protein (honey bee) Allergy (Verified 04/18/24 18:12) ANAPHALEXIS REACTION latex Allergy (Verified 04/18/24 18:12) rash shellfish derived Allergy (Verified 04/18/24 18:12) ANAPHALEXIS REACTION Review of Systems ROS: No change since H&P Vital Signs and I&O's Vital Signs: Vital Signs Temperature 98.1 F Pulse Rate [Left Brachial] 74 Respiratory Rate 19 Blood Pressure [Left Arm] 165/73 O2 Sat by Pulse Oximetry 95 Intake and Output: Intake & Output 06/08/24 06/09/24 06/10/24 06/11/24 11:59 11:59 11:59 11:59 Intake Total 4184 / 4184 4291 / 4291 1117 / 1117 Balance 4184 / 4184 4291 / 4291 1117 / 1117 Physical Exam Oriented: Normal Eyes: Normal Ear: Normal Nose: Normal Throat: Normal Respiratory: Normal Cardiovascular: Normal : Normal Auscultation: Bowel Sounds: Normal Tenderness: Diffuse, RUQ, LUQ, LLQ and Epigastric Skin: Normal Musculoskeletal: Right, Left and Leg (Cordlike masses bilaterally on palpation- proven. Improving.) Psychiatric: Normal Mood Description: Calm Affect: Normal Speech Pattern: Clear and Appropriate Laboratory and Diagnostics 06/10/24 05:22 06/10/24 05:22 Labs: Laboratory WBC 11.6 X10^3/uL (3.6-10.0) H 06/10/24 05:22 RBC 3.91 X10^6/uL (3.5-5.4) 06/10/24 05:22 Hgb 10.3 g/dL (12.0-16.0) L 06/10/24 05:22 Hct 30.8 % (36.0-47.0) L 06/10/24 05:22 MCV 78.8 fL (80.0-100.0) L 06/10/24 05:22 MCH 26.3 pg (27.0-34.0) L 06/10/24 05:22 MCHC 33.3 g/dL (33.0-35.0) 06/10/24 05:22 RDW 16.7 % (11.6-16.5) H 06/10/24 05:22 Plt Count 242 X10^3/uL (150.0-450.0) 06/10/24 05:22 Plt Count Comment Adequate (ADEQUATE) 06/07/24 05:43 MPV 10.4 fL (7.4-11.0) 06/10/24 05:22 Neut % (Auto) 59.1 % (42.0-75.0) 06/10/24 05:22 Lymph % (Auto) 28.8 % (21.0-51.0) 06/10/24 05:22 [place] % (Auto) 11.3 % (0.0-13.0) 06/10/24 05:22 Eos % (Auto) 0.3 % (0.9-2.9) L 06/10/24 05:22 Baso % (Auto) 0.5 % (0.2-1.0) 06/10/24 05:22 Neut # (Auto) 6.8 x10^3/uL (2.2-4.8) H 06/10/24 05:22 Lymph # (Auto) 3.3 X10^3/uL (1.3-2.9) H 06/10/24 05:22 [place] # (Auto) 1.3 x10^3/uL (0.3-0.8) H 06/10/24 05:22 Eos # (Auto) 0.0 x10^3/uL (0.0-0.2) 06/10/24 05:22 Baso # (Auto) 0.1 X10^3/uL (0.0-0.1) 06/10/24 05:22 Absolute Nucleated RBC 0.0 /100WBC 06/10/24 05:22 Total Counted 100 06/07/24 05:43 Neutrophils % (Manual) 94 % (39-76) H 06/07/24 05:43 Lymphocytes % (Manual) 5 % (13-43) L 06/07/24 05:43 Monocytes % (Manual) 1 % (4-9) L 06/07/24 05:43 Plt Morphology Comment Normal (NORMAL) 06/07/24 05:43 RBC Morphology Abnormal (NORMAL) A 06/07/24 05:43 Hypochromasia Slight A 06/07/24 05:43 Microcytosis Slight A 06/07/24 05:43 Sodium 142 mmol/L (136-145) 06/10/24 05:22 Corrected Sodium TNP 06/10/24 05:22 Potassium 3.4 mmol/L (3.5-5.1) L 06/10/24 05:22 Chloride 104 mmol/L (98-107) 06/10/24 05:22 Carbon Dioxide 31.2 mmol/L (21-32) 06/10/24 05:22 BUN 13 mg/dL (7-18) 06/10/24 05:22 Creatinine 0.97 mg/dL (0.55-1.02) 06/10/24 05:22 Est GFR (MDRD) Af Amer > 60 (>60) 06/10/24 05:22 Est GFR (MDRD) Non-Af > 60 (>60) 06/10/24 05:22 Glucose 84 mg/dL (65-99) 06/10/24 05:22 POC Glucose (mg/dL) 168 mg/dL (65-99) H 06/07/24 02:37 Calcium 8.2 mg/dL (8.5-10.1) L 06/10/24 05:22 Corrected Calcium 9.2 mg/dL (8.5-10.1) 06/10/24 05:22 Magnesium 1.9 mg/dL (2.0-2.9) L 06/05/24 05:25 Total Bilirubin 0.20 mg/dL (0.2-1.0) 06/10/24 05:22 AST 47 Units/L (15-37) H 06/10/24 05:22 ALT 85 Units/L (12-78) H 06/10/24 05:22 Alkaline Phosphatase 76 Units/L (46-116) 06/10/24 05:22 Creatine Kinase 32 Units/L (26-192) 06/07/24 02:10 Troponin I High Sens 4.9 ng/L (4.0-60.0) 06/09/24 15:21 Total Protein 6.7 g/dL (6.4-8.2) 06/10/24 05:22 Albumin 2.8 g/dL (3.4-5.0) L 06/10/24 05:22 Globulin 3.9 g/dL (2.5-4.5) 06/10/24 05:22 Albumin/Globulin Ratio 0.7 Ratio (1.1-2.1) L 06/10/24 05:22 Amylase 44 Units/L (25-115) 06/04/24 05:30 Lipase 40 Units/L (16-77) 06/04/24 05:30 Specimen Type Clean catch urine 06/02/24 16:31 Urine Color Yellow (YELLOW) 06/02/24 16:31 Urine Appearance Clear (CLEAR) 06/02/24 16:31 Urine pH 6.0 (5.0 - 8.0) 06/02/24 16:31 Ur Specific [place] 1.030 (1.000-1.030) 06/02/24 16:31 Urine Protein Negative (NEGATIVE) 06/02/24 16:31 Urine Glucose (UA) Negative (NEGATIVE) 06/02/24 16:31 Urine Ketones 2+ (NEGATIVE) 06/02/24 16:31 Urine Blood Negative (NEGATIVE) 06/02/24 16:31 Urine Nitrite Negative (NEGATIVE) 06/02/24 16:31 Urine Bilirubin Negative (NEGATIVE) 06/02/24 16:31 Urine Urobilinogen Normal (NORMAL) 06/02/24 16:31 Ur Leukocyte Esterase Negative (NEGATIVE) 06/02/24 16:31 EVAN Screen See scanned report 06/05/24 05:25 Plan (1) Muscle spasms of both lower extremities: Status: Acute Plan: I will order some bentyl for abdominal cramping. I recommended that the patient walk around and try to use the bathroom, as this may help alleviate her symptoms. I advised that once her bowels are cleared out, she should start feeling better. I also suggested getting her walking in the [place]. (2) Partial obstruction of small intestine: Status: Acute (3) Abdominal distention: Status: Acute
--- NOTE | 2024-06-10 12:43 | PCM.PROG ---
Progress Note Progress Note for Day of Date of Exam: 06/10/24 Subjective Subjective: Flakita Nash is experiencing severe abdominal cramps. She reported that her bowels were active over the weekend, with a small amount of output. The patient described the pain as "hurting so bad." She attempted to walk around yesterday to stimulate bowel movements, but the cramps persisted. Flakita does not currently feel the need to use the bathroom, but is in significant pain. The cramping appears to be related to the medication given to stimulate bowel movements. Past Medical Family Social History Past Med/Fam/Surg Hx: No changes since H&P Allergies: Allergies bee pollen Allergy (Severe, Verified 04/18/24 18:12) ANAPHALEXIS REACTION adhesive tape [tape (adhesive)] Allergy (Verified 04/18/24 18:12) rash bee venom protein (honey bee) Allergy (Verified 04/18/24 18:12) ANAPHALEXIS REACTION latex Allergy (Verified 04/18/24 18:12) rash shellfish derived Allergy (Verified 04/18/24 18:12) ANAPHALEXIS REACTION Review of Systems ROS: No change since H&P Vital Signs and I&O's Vital Signs: Vital Signs Temperature 98.1 F Pulse Rate [Left Brachial] 74 Respiratory Rate 19 Blood Pressure [Left Arm] 165/73 O2 Sat by Pulse Oximetry 95 Intake and Output: Intake & Output 06/08/24 06/09/24 06/10/24 06/11/24 11:59 11:59 11:59 11:59 Intake Total 4184 / 4184 4291 / 4291 1117 / 1117 Balance 4184 / 4184 4291 / 4291 1117 / 1117 Physical Exam Oriented: Normal Eyes: Normal Ear: Normal Nose: Normal Throat: Normal Respiratory: Normal Cardiovascular: Normal : Normal Auscultation: Bowel Sounds: Normal Tenderness: Diffuse, RUQ, LUQ, LLQ and Epigastric Skin: Normal Musculoskeletal: Right, Left and Leg (Cordlike masses bilaterally on palpation- proven. Improving.) Psychiatric: Normal Mood Description: Calm Affect: Normal Speech Pattern: Clear and Appropriate Laboratory and Diagnostics 06/10/24 05:22 06/10/24 05:22 Labs: Laboratory WBC 11.6 X10^3/uL (3.6-10.0) H 06/10/24 05:22 RBC 3.91 X10^6/uL (3.5-5.4) 06/10/24 05:22 Hgb 10.3 g/dL (12.0-16.0) L 06/10/24 05:22 Hct 30.8 % (36.0-47.0) L 06/10/24 05:22 MCV 78.8 fL (80.0-100.0) L 06/10/24 05:22 MCH 26.3 pg (27.0-34.0) L 06/10/24 05:22 MCHC 33.3 g/dL (33.0-35.0) 06/10/24 05:22 RDW 16.7 % (11.6-16.5) H 06/10/24 05:22 Plt Count 242 X10^3/uL (150.0-450.0) 06/10/24 05:22 Plt Count Comment Adequate (ADEQUATE) 06/07/24 05:43 MPV 10.4 fL (7.4-11.0) 06/10/24 05:22 Neut % (Auto) 59.1 % (42.0-75.0) 06/10/24 05:22 Lymph % (Auto) 28.8 % (21.0-51.0) 06/10/24 05:22 [place] % (Auto) 11.3 % (0.0-13.0) 06/10/24 05:22 Eos % (Auto) 0.3 % (0.9-2.9) L 06/10/24 05:22 Baso % (Auto) 0.5 % (0.2-1.0) 06/10/24 05:22 Neut # (Auto) 6.8 x10^3/uL (2.2-4.8) H 06/10/24 05:22 Lymph # (Auto) 3.3 X10^3/uL (1.3-2.9) H 06/10/24 05:22 [place] # (Auto) 1.3 x10^3/uL (0.3-0.8) H 06/10/24 05:22 Eos # (Auto) 0.0 x10^3/uL (0.0-0.2) 06/10/24 05:22 Baso # (Auto) 0.1 X10^3/uL (0.0-0.1) 06/10/24 05:22 Absolute Nucleated RBC 0.0 /100WBC 06/10/24 05:22 Total Counted 100 06/07/24 05:43 Neutrophils % (Manual) 94 % (39-76) H 06/07/24 05:43 Lymphocytes % (Manual) 5 % (13-43) L 06/07/24 05:43 Monocytes % (Manual) 1 % (4-9) L 06/07/24 05:43 Plt Morphology Comment Normal (NORMAL) 06/07/24 05:43 RBC Morphology Abnormal (NORMAL) A 06/07/24 05:43 Hypochromasia Slight A 06/07/24 05:43 Microcytosis Slight A 06/07/24 05:43 Sodium 142 mmol/L (136-145) 06/10/24 05:22 Corrected Sodium TNP 06/10/24 05:22 Potassium 3.4 mmol/L (3.5-5.1) L 06/10/24 05:22 Chloride 104 mmol/L (98-107) 06/10/24 05:22 Carbon Dioxide 31.2 mmol/L (21-32) 06/10/24 05:22 BUN 13 mg/dL (7-18) 06/10/24 05:22 Creatinine 0.97 mg/dL (0.55-1.02) 06/10/24 05:22 Est GFR (MDRD) Af Amer > 60 (>60) 06/10/24 05:22 Est GFR (MDRD) Non-Af > 60 (>60) 06/10/24 05:22 Glucose 84 mg/dL (65-99) 06/10/24 05:22 POC Glucose (mg/dL) 168 mg/dL (65-99) H 06/07/24 02:37 Calcium 8.2 mg/dL (8.5-10.1) L 06/10/24 05:22 Corrected Calcium 9.2 mg/dL (8.5-10.1) 06/10/24 05:22 Magnesium 1.9 mg/dL (2.0-2.9) L 06/05/24 05:25 Total Bilirubin 0.20 mg/dL (0.2-1.0) 06/10/24 05:22 AST 47 Units/L (15-37) H 06/10/24 05:22 ALT 85 Units/L (12-78) H 06/10/24 05:22 Alkaline Phosphatase 76 Units/L (46-116) 06/10/24 05:22 Creatine Kinase 32 Units/L (26-192) 06/07/24 02:10 Troponin I High Sens 4.9 ng/L (4.0-60.0) 06/09/24 15:21 Total Protein 6.7 g/dL (6.4-8.2) 06/10/24 05:22 Albumin 2.8 g/dL (3.4-5.0) L 06/10/24 05:22 Globulin 3.9 g/dL (2.5-4.5) 06/10/24 05:22 Albumin/Globulin Ratio 0.7 Ratio (1.1-2.1) L 06/10/24 05:22 Amylase 44 Units/L (25-115) 06/04/24 05:30 Lipase 40 Units/L (16-77) 06/04/24 05:30 Specimen Type Clean catch urine 06/02/24 16:31 Urine Color Yellow (YELLOW) 06/02/24 16:31 Urine Appearance Clear (CLEAR) 06/02/24 16:31 Urine pH 6.0 (5.0 - 8.0) 06/02/24 16:31 Ur Specific [place] 1.030 (1.000-1.030) 06/02/24 16:31 Urine Protein Negative (NEGATIVE) 06/02/24 16:31 Urine Glucose (UA) Negative (NEGATIVE) 06/02/24 16:31 Urine Ketones 2+ (NEGATIVE) 06/02/24 16:31 Urine Blood Negative (NEGATIVE) 06/02/24 16:31 Urine Nitrite Negative (NEGATIVE) 06/02/24 16:31 Urine Bilirubin Negative (NEGATIVE) 06/02/24 16:31 Urine Urobilinogen Normal (NORMAL) 06/02/24 16:31 Ur Leukocyte Esterase Negative (NEGATIVE) 06/02/24 16:31 EVAN Screen See scanned report 06/05/24 05:25 Plan (1) Muscle spasms of both lower extremities: Status: Acute (2) Partial obstruction of small intestine: Status: Acute (3) Abdominal distention: Status: Acute Plan: I will talk to Dr. Srivastava about the colonoscopy scheduled for tomorrow. We can potentially set it up as an outpatient procedure. I will check on this and confirm the details.
--- NOTE | 2024-06-10 12:48 | DR.PROGNOT ---
HOSPITAL PROGRESS NOTE Progress Note for Day of: Progress Note Date: 06/10/24 Chief Complaint Chief Complaint: Patient is feeling better today after few bowel movement with the bowel prep. She is still anxious and complaining of mid abdominal pain with nausea and food intolerance, White count 11.6. which could be from steroids, hemoglobin 10., liver function tests only slightly elevated with normal alkaline phosphatase., serum bilirubin is normal, albumin 2.6 amylase lipase are normal today. Blood sugar 130 Patient is afebrile and stable vital signs. Abdomen soft, somewhat full with diffuse tenderness, no rebound or rigidity, bowel sounds are present. For colonoscopy in the morning. Past Medical Family Social History Past Med/Fam/Surg Hx: No changes since H&P Allergies: Allergies bee pollen Allergy (Severe, Verified 04/18/24 18:12) ANAPHALEXIS REACTION adhesive tape [tape (adhesive)] Allergy (Verified 04/18/24 18:12) rash bee venom protein (honey bee) Allergy (Verified 04/18/24 18:12) ANAPHALEXIS REACTION latex Allergy (Verified 04/18/24 18:12) rash shellfish derived Allergy (Verified 04/18/24 18:12) ANAPHALEXIS REACTION Review Of Systems ROS: No change since H&P Vital Signs Vital Signs: Vital Signs Temperature 98.1 F Pulse Rate [Left Brachial] 74 Respiratory Rate 19 Blood Pressure [Left Arm] 165/73 O2 Sat by Pulse Oximetry 95 Physical Exam Oriented: Normal Eyes: Normal Ear: Normal Nose: Normal Throat: Normal Respiratory: Normal Cardiovascular: Normal : Normal GI:Auscultation: Normal GI:Palpation: Normal GI: Tenderness: Diffuse, RUQ, LUQ, LLQ and Epigastric Skin: Normal Psychiatric: Normal Mood Description: Calm Affect: Normal Speech Pattern: Clear and Appropriate Laboratory and Diagnostics 06/10/24 05:22 06/10/24 05:22 Labs: Laboratory WBC 11.6 X10^3/uL (3.6-10.0) H 06/10/24 05:22 RBC 3.91 X10^6/uL (3.5-5.4) 06/10/24 05:22 Hgb 10.3 g/dL (12.0-16.0) L 06/10/24 05:22 Hct 30.8 % (36.0-47.0) L 06/10/24 05:22 MCV 78.8 fL (80.0-100.0) L 06/10/24 05:22 MCH 26.3 pg (27.0-34.0) L 06/10/24 05:22 MCHC 33.3 g/dL (33.0-35.0) 06/10/24 05:22 RDW 16.7 % (11.6-16.5) H 06/10/24 05:22 Plt Count 242 X10^3/uL (150.0-450.0) 06/10/24 05:22 Plt Count Comment Adequate (ADEQUATE) 06/07/24 05:43 MPV 10.4 fL (7.4-11.0) 06/10/24 05:22 Neut % (Auto) 59.1 % (42.0-75.0) 06/10/24 05:22 Lymph % (Auto) 28.8 % (21.0-51.0) 06/10/24 05:22 [place] % (Auto) 11.3 % (0.0-13.0) 06/10/24 05:22 Eos % (Auto) 0.3 % (0.9-2.9) L 06/10/24 05:22 Baso % (Auto) 0.5 % (0.2-1.0) 06/10/24 05:22 Neut # (Auto) 6.8 x10^3/uL (2.2-4.8) H 06/10/24 05:22 Lymph # (Auto) 3.3 X10^3/uL (1.3-2.9) H 06/10/24 05:22 [place] # (Auto) 1.3 x10^3/uL (0.3-0.8) H 06/10/24 05:22 Eos # (Auto) 0.0 x10^3/uL (0.0-0.2) 06/10/24 05:22 Baso # (Auto) 0.1 X10^3/uL (0.0-0.1) 06/10/24 05:22 Absolute Nucleated RBC 0.0 /100WBC 06/10/24 05:22 Total Counted 100 06/07/24 05:43 Neutrophils % (Manual) 94 % (39-76) H 06/07/24 05:43 Lymphocytes % (Manual) 5 % (13-43) L 06/07/24 05:43 Monocytes % (Manual) 1 % (4-9) L 06/07/24 05:43 Plt Morphology Comment Normal (NORMAL) 06/07/24 05:43 RBC Morphology Abnormal (NORMAL) A 06/07/24 05:43 Hypochromasia Slight A 06/07/24 05:43 Microcytosis Slight A 06/07/24 05:43 Sodium 142 mmol/L (136-145) 06/10/24 05:22 Corrected Sodium TNP 06/10/24 05:22 Potassium 3.4 mmol/L (3.5-5.1) L 06/10/24 05:22 Chloride 104 mmol/L (98-107) 06/10/24 05:22 Carbon Dioxide 31.2 mmol/L (21-32) 06/10/24 05:22 BUN 13 mg/dL (7-18) 06/10/24 05:22 Creatinine 0.97 mg/dL (0.55-1.02) 06/10/24 05:22 Est GFR (MDRD) Af Amer > 60 (>60) 06/10/24 05:22 Est GFR (MDRD) Non-Af > 60 (>60) 06/10/24 05:22 Glucose 84 mg/dL (65-99) 06/10/24 05:22 POC Glucose (mg/dL) 168 mg/dL (65-99) H 06/07/24 02:37 Calcium 8.2 mg/dL (8.5-10.1) L 06/10/24 05:22 Corrected Calcium 9.2 mg/dL (8.5-10.1) 06/10/24 05:22 Magnesium 1.9 mg/dL (2.0-2.9) L 06/05/24 05:25 Total Bilirubin 0.20 mg/dL (0.2-1.0) 06/10/24 05:22 AST 47 Units/L (15-37) H 06/10/24 05:22 ALT 85 Units/L (12-78) H 06/10/24 05:22 Alkaline Phosphatase 76 Units/L (46-116) 06/10/24 05:22 Creatine Kinase 32 Units/L (26-192) 06/07/24 02:10 Troponin I High Sens 4.9 ng/L (4.0-60.0) 06/09/24 15:21 Total Protein 6.7 g/dL (6.4-8.2) 06/10/24 05:22 Albumin 2.8 g/dL (3.4-5.0) L 06/10/24 05:22 Globulin 3.9 g/dL (2.5-4.5) 06/10/24 05:22 Albumin/Globulin Ratio 0.7 Ratio (1.1-2.1) L 06/10/24 05:22 Amylase 44 Units/L (25-115) 06/04/24 05:30 Lipase 40 Units/L (16-77) 06/04/24 05:30 Specimen Type Clean catch urine 06/02/24 16:31 Urine Color Yellow (YELLOW) 06/02/24 16:31 Urine Appearance Clear (CLEAR) 06/02/24 16:31 Urine pH 6.0 (5.0 - 8.0) 06/02/24 16:31 Ur Specific [place] 1.030 (1.000-1.030) 06/02/24 16:31 Urine Protein Negative (NEGATIVE) 06/02/24 16:31 Urine Glucose (UA) Negative (NEGATIVE) 06/02/24 16:31 Urine Ketones 2+ (NEGATIVE) 06/02/24 16:31 Urine Blood Negative (NEGATIVE) 06/02/24 16:31 Urine Nitrite Negative (NEGATIVE) 06/02/24 16:31 Urine Bilirubin Negative (NEGATIVE) 06/02/24 16:31 Urine Urobilinogen Normal (NORMAL) 06/02/24 16:31 Ur Leukocyte Esterase Negative (NEGATIVE) 06/02/24 16:31 EVAN Screen See scanned report 06/05/24 05:25 Assessment and Plan 1: Persistent abdominal pain with nausea and constipation. Subsiding partial bowel obstruction. Possible inflammatory bowel disease .on IV steroids. on IV fluid. Advance diet to soft as tolerated. colonoscopy in a.m.. on bowel prep with Suprep 2: Anxiety and depression. Problem Patient Problems: Patient Problems Partial obstruction of small intestine (Acute) K56.600 Abdominal distention (Acute) R14.0 Nausea (Acute) R11.0 Dizziness (Acute) R42
[2024-06-10] MEDS: SUPREP BOWEL PREP KIT PO SCH (17:19)
[2024-06-11] MEDS: HIBICLENS WASH EXT ONE (03:58)
[2024-06-11 05:59] LABS: BASOPHILS # (AUTO) 0.1 X10^3/uL (0.0-0.1); BASOPHILS % (AUTO) 0.6 % (0.2-1.0); HEMATOCRIT 36.3 % (36.0-47.0); HEMOGLOBIN 11.9 g/dL (12.0-16.0); LYMPHOCYTES # (AUTO) 1.4 X10^3/uL (1.3-2.9); LYMPHOCYTES % (AUTO) 9.3 % (21.0-51.0); MEAN CORPUSCULAR HEMOGLOBIN 25.8 pg (27.0-34.0); MEAN CORPUSCULAR HGB CONC 32.8 g/dL (33.0-35.0); MEAN CORPUSCULAR VOLUME 78.6 fL (80.0-100.0); MEAN PLATELET VOLUME 10.2 fL (7.4-11.0); MONOCYTES # (AUTO) 0.7 x10^3/uL (0.3-0.8); MONOCYTES % (AUTO) 4.7 % (0.0-13.0); NEUTROPHILS # (AUTO) 12.4 x10^3/uL (2.2-4.8); NEUTROPHILS % (AUTO) 85.4 % (42.0-75.0); PLATELET COUNT 278 X10^3/uL (150.0-450.0); RED BLOOD COUNT 4.62 X10^6/uL (3.5-5.4); RED CELL DISTRIBUTION WIDTH 16.6 % (11.6-16.5); WHITE BLOOD COUNT 14.5 X10^3/uL (3.6-10.0)
[2024-06-11 06:13] LABS: ALANINE AMINOTRANSFERASE 77 Units/L (12-78); ALBUMIN 3.2 g/dL (3.4-5.0); ALKALINE PHOSPHATASE 93 Units/L (46-116); ASPARTATE AMINO TRANSFERASE 28 Units/L (15-37); BLOOD UREA NITROGEN 10 mg/dL (7-18); CALCIUM 8.8 mg/dL (8.5-10.1); CARBON DIOXIDE 27.5 mmol/L (21-32); CHLORIDE 105 mmol/L (98-107); COR CA(FOR HYPOALB) 9.4 mg/dL (8.5-10.1); COR NA(FOR HYPERGLY) 143 mmol/L (136-145); CREATININE 0.86 mg/dL (0.55-1.02); GLUCOSE 114 mg/dL (65-99); MAGNESIUM 1.8 mg/dL (2.0-2.9); POTASSIUM 3.4 mmol/L (3.5-5.1); SODIUM 143 mmol/L (136-145); eGFR NON BLACK RACES > 60 (>60)
[2024-06-11] MEDS ORDERED: CONSULT PHARMACY - POTASSIUM & MAGNESIUM XX SCH (07:00)
[2024-06-11] MEDS: DIPRIVAN VIAL 20 ML ONE ×2 (07:24→07:31)
[2024-06-11] MEDS: ROBINUL ONE (07:32)
[2024-06-11] MEDS ORDERED: K-RIDER 10 MEQ/100 ML WATER 10 MEQ/100 ML BAG IV SCH (09:00)
[2024-06-11] MEDS ORDERED: MAGNESIUM SULFATE 1 GRAM/100 mL PREMIX 1 G/100 ML BAG IV SCH (09:00)
[2024-06-11] MEDS: MAG-OX TAB PO SCH (09:03)
[2024-06-11] MEDS: K-DUR TAB 20 MEQ PO SCH (09:03)
[2024-06-11 09:57] VITALS: RESP 19
[2024-06-11 09:59] VITALS: O2SAT 97
--- NOTE | 2024-06-11 10:08 | PCM.PROG ---
Progress Note Progress Note for Day of Date of Exam: 06/11/24 Subjective Subjective: Ms. Boggs underwent a colonoscopy earlier today. She reports feeling a little drowsy due to the sedation. She has had abdominal pain localized to her lower stomach but notes that it is not as severe as it was previously. She had an x-ray done yesterday, which was noted to look good. We will follow-up with the colonoscopy results when available later today. Patient will be discharged at the discretion of her general surgeon, Dr. Srivastava. Currently her leg spasms are better. I do know that she is bradycardic and because of that I stopped her baclofen as it is known to cause severe bradycardia in some people and it can also cause hypotension. I suspect her bradycardia should improved after the baclofen begins to wear off. Past Medical Family Social History Past Med/Fam/Surg Hx: No changes since H&P Allergies: Allergies bee pollen Allergy (Severe, Verified 04/18/24 18:12) ANAPHALEXIS REACTION adhesive tape [tape (adhesive)] Allergy (Verified 04/18/24 18:12) rash bee venom protein (honey bee) Allergy (Verified 04/18/24 18:12) ANAPHALEXIS REACTION latex Allergy (Verified 04/18/24 18:12) rash shellfish derived Allergy (Verified 04/18/24 18:12) ANAPHALEXIS REACTION Review of Systems ROS: No change since H&P Vital Signs and I&O's Vital Signs: Vital Signs Temperature 97.9 F Temperature 97.8 F Temperature 98.1 F Temperature 97.7 F Temperature 97.6 F Temperature 98.4 F Pulse Rate [Left Brachial] 50 Pulse Rate 50 Pulse Rate 54 Pulse Rate 46 Pulse Rate 48 Pulse Rate 42 Respiratory Rate 19 Respiratory Rate 19 Respiratory Rate 19 Respiratory Rate 20 Respiratory Rate 20 Respiratory Rate 18 Blood Pressure [Left Arm] 130/74 Blood Pressure 152/74 Blood Pressure 143/89 Blood Pressure 143/69 Blood Pressure 127/67 Blood Pressure 164/92 O2 Sat by Pulse Oximetry 97 O2 Sat by Pulse Oximetry 100 O2 Sat by Pulse Oximetry 100 O2 Sat by Pulse Oximetry 100 O2 Sat by Pulse Oximetry 100 O2 Sat by Pulse Oximetry 95 Intake and Output: Intake & Output 06/08/24 06/09/24 06/10/24 06/11/24 11:59 11:59 11:59 11:59 Intake Total 4184 / 4184 4291 / 4291 1117 / 1117 2778 / 2778 Output Total 2 / 2 Balance 4184 / 4184 4291 / 4291 1117 / 1117 2776 / 2776 Physical Exam Oriented: Normal Eyes: Normal Ear: Normal Nose: Normal Throat: Normal Respiratory: Normal Cardiovascular: Normal : Normal Auscultation: Bowel Sounds: Normal Tenderness: Diffuse, RUQ, LUQ, LLQ and Epigastric Skin: Normal Musculoskeletal: Right, Left and Leg (Cordlike masses bilaterally on palpation- proven. Improving.) Psychiatric: Normal Mood Description: Calm Affect: Normal Speech Pattern: Clear and Appropriate Laboratory and Diagnostics 06/11/24 05:40 06/11/24 05:40 Labs: Laboratory WBC 14.5 X10^3/uL (3.6-10.0) H 06/11/24 05:40 RBC 4.62 X10^6/uL (3.5-5.4) 06/11/24 05:40 Hgb 11.9 g/dL (12.0-16.0) L 06/11/24 05:40 Hct 36.3 % (36.0-47.0) 06/11/24 05:40 MCV 78.6 fL (80.0-100.0) L 06/11/24 05:40 MCH 25.8 pg (27.0-34.0) L 06/11/24 05:40 MCHC 32.8 g/dL (33.0-35.0) L 06/11/24 05:40 RDW 16.6 % (11.6-16.5) H 06/11/24 05:40 Plt Count 278 X10^3/uL (150.0-450.0) 06/11/24 05:40 Plt Count Comment Adequate (ADEQUATE) 06/07/24 05:43 MPV 10.2 fL (7.4-11.0) 06/11/24 05:40 Neut % (Auto) 85.4 % (42.0-75.0) H 06/11/24 05:40 Lymph % (Auto) 9.3 % (21.0-51.0) L 06/11/24 05:40 [place] % (Auto) 4.7 % (0.0-13.0) 06/11/24 05:40 Eos % (Auto) 0.0 % (0.9-2.9) L 06/11/24 05:40 Baso % (Auto) 0.6 % (0.2-1.0) 06/11/24 05:40 Neut # (Auto) 12.4 x10^3/uL (2.2-4.8) H 06/11/24 05:40 Lymph # (Auto) 1.4 X10^3/uL (1.3-2.9) 06/11/24 05:40 [place] # (Auto) 0.7 x10^3/uL (0.3-0.8) 06/11/24 05:40 Eos # (Auto) 0.0 x10^3/uL (0.0-0.2) 06/11/24 05:40 Baso # (Auto) 0.1 X10^3/uL (0.0-0.1) 06/11/24 05:40 Absolute Nucleated RBC 0.1 /100WBC 06/11/24 05:40 Total Counted 100 06/07/24 05:43 Neutrophils % (Manual) 94 % (39-76) H 06/07/24 05:43 Lymphocytes % (Manual) 5 % (13-43) L 06/07/24 05:43 Monocytes % (Manual) 1 % (4-9) L 06/07/24 05:43 Plt Morphology Comment Normal (NORMAL) 06/07/24 05:43 RBC Morphology Abnormal (NORMAL) A 06/07/24 05:43 Hypochromasia Slight A 06/07/24 05:43 Microcytosis Slight A 06/07/24 05:43 Sodium 143 mmol/L (136-145) 06/11/24 05:40 Corrected Sodium 143 mmol/L (136-145) 06/11/24 05:40 Potassium 3.4 mmol/L (3.5-5.1) L 06/11/24 05:40 Chloride 105 mmol/L (98-107) 06/11/24 05:40 Carbon Dioxide 27.5 mmol/L (21-32) 06/11/24 05:40 BUN 10 mg/dL (7-18) 06/11/24 05:40 Creatinine 0.86 mg/dL (0.55-1.02) 06/11/24 05:40 Est GFR (MDRD) Af Amer > 60 (>60) 06/11/24 05:40 Est GFR (MDRD) Non-Af > 60 (>60) 06/11/24 05:40 Glucose 114 mg/dL (65-99) H 06/11/24 05:40 POC Glucose (mg/dL) 168 mg/dL (65-99) H 06/07/24 02:37 Calcium 8.8 mg/dL (8.5-10.1) 06/11/24 05:40 Corrected Calcium 9.4 mg/dL (8.5-10.1) 06/11/24 05:40 Magnesium 1.8 mg/dL (2.0-2.9) L 06/11/24 05:40 Total Bilirubin 0.30 mg/dL (0.2-1.0) 06/11/24 05:40 AST 28 Units/L (15-37) 06/11/24 05:40 ALT 77 Units/L (12-78) 06/11/24 05:40 Alkaline Phosphatase 93 Units/L (46-116) 06/11/24 05:40 Creatine Kinase 32 Units/L (26-192) 06/07/24 02:10 Troponin I High Sens 4.9 ng/L (4.0-60.0) 06/09/24 15:21 Total Protein 8.0 g/dL (6.4-8.2) 06/11/24 05:40 Albumin 3.2 g/dL (3.4-5.0) L 06/11/24 05:40 Globulin 4.8 g/dL (2.5-4.5) H 06/11/24 05:40 Albumin/Globulin Ratio 0.7 Ratio (1.1-2.1) L 06/11/24 05:40 Amylase 44 Units/L (25-115) 06/04/24 05:30 Lipase 40 Units/L (16-77) 06/04/24 05:30 Specimen Type Clean catch urine 06/02/24 16:31 Urine Color Yellow (YELLOW) 06/02/24 16:31 Urine Appearance Clear (CLEAR) 06/02/24 16:31 Urine pH 6.0 (5.0 - 8.0) 06/02/24 16:31 Ur Specific [place] 1.030 (1.000-1.030) 06/02/24 16:31 Urine Protein Negative (NEGATIVE) 06/02/24 16:31 Urine Glucose (UA) Negative (NEGATIVE) 06/02/24 16:31 Urine Ketones 2+ (NEGATIVE) 06/02/24 16:31 Urine Blood Negative (NEGATIVE) 06/02/24 16:31 Urine Nitrite Negative (NEGATIVE) 06/02/24 16:31 Urine Bilirubin Negative (NEGATIVE) 06/02/24 16:31 Urine Urobilinogen Normal (NORMAL) 06/02/24 16:31 Ur Leukocyte Esterase Negative (NEGATIVE) 06/02/24 16:31 EVAN Screen See scanned report 06/05/24 05:25 Tissue Pathology See comment. 06/05/24 11:53 Plan (1) Muscle spasms of both lower extremities: Status: Acute Plan: I will order some bentyl for abdominal cramping. I recommended that the patient walk around and try to use the bathroom, as this may help alleviate her symptoms. I advised that once her bowels are cleared out, she should start feeling better. I also suggested getting her walking in the [place]. (2) Partial obstruction of small intestine: Status: Acute (3) Abdominal distention: Status: Acute Plan: I will talk to Dr. Srivastava about the colonoscopy scheduled for tomorrow. We can potentially set it up as an outpatient procedure. I will check on this and confirm the details. (4) Bradycardia with 41-50 beats per minute: Status: Acute Narrative Support Text: I suspect the patient's bradycardia is likely secondary to a side effect of the medication baclofen. Baclofen is known to cause severe bradycardia and hypotension in some people. Plan: Discontinue baclofen at this time and monitor for improvement of patient's low heart rate.
[2024-06-11 12:45] VITALS: BP 157/83; PULSE 60; TEMP 97.4
== END 2024-06-11 12:50 | disposition home or self-care (01) | DRG 392 ==
LOC: ER 13:38 → MED/SURG 13:38
PROVIDERS: ADMIT Surgery; ATTEND Surgery
DX: R06.02 Shortness of breath; K29.60 Other gastritis without bleeding; K59.09 Other constipation; K56.690 Other partial intestinal obstruction; K52.89 Other specified noninfective gastroenteritis and colitis; E83.42 Hypomagnesemia; R00.0 Tachycardia, unspecified; F41.8 Other specified anxiety disorders; R10.84 Generalized abdominal pain; R07.89 Other chest pain; M62.838 Other muscle spasm

== ENCOUNTER 2025-04-14 09:59 | Observation (INO) ==
[2025-04-14 10:09] VITALS: BMI 28.3
--- NOTE | 2025-04-14 10:13 | ED.ABDFE ---
HPI Time Seen Time Seen by Provider: 04/14/25 10:12 PCP Primary Care Physician: Aissatou Bucio Complaint Doctors Chief Complaint Comments: 44-year-old female to ED from home POV with onset this a.m. of abdominal pain concentrated in the epigastrium with nausea and burning sensation Chief Complaint:: Patient states that aroud 6AM she started having stomach cramps and sharp pains in her upper abdomen. She states that it feels like it's burning. She states that the pain is causing her to be nauseated, but she has not thrown up. Self Treatment fo Chief Complaint: Patient has taken bental without relief Source History Provided: Patient Mode of arrival Mode of Arrival: Ambulatory Timing Onset of Chief Complaint: 04/14/25 PMH PMH Past Medical History: Yes Past Medical History: GERD and Hypertension Past Medical History Comment: crohn's disease Past Surgical History: Yes Surgical History: Abdominal Surgery, Appendectomy, and Cholecystectomy Past Surgical History Comment: Bowl resection Family History History of Family Medical Conditions: Yes Family Medical History: Diabetes Mellitus, [place] and Hypertension Social History Does patient currently use any type of tobacco product: No Have you used tobacco products in the last 12 months: No Type of Tobacco Use: None Does any household member use tobacco: No Alcohol Use: None Do you use any recreational Drugs:: No Lives With: Family Lives Where: Home Infectious screening In the last 2 months have you had wt loss of >10#?: NO Have you had fever, night sweats or hemotysis?: No Have you traveled outside the country in the last 6 months?: No Isolation: Standard ROS Review of Systems Constitutional: No Symptoms Reported Eyes: No Symptoms Reported ENTM: No Symptoms Reported Respiratoy: No Symptoms Reported Cardiovascular: No Symptoms Reported Gastrointestinal/Abdominal: See HPI, Abdominal Pain and Nausea Genitourinary: No Symptoms Reported Neurological: No Symptoms Reported Musculoskeletal: No Symptoms Reported Integumentary: No Symptoms Reported Hematologic/Lymphatic: No Symptoms Reported Endocrine: No Symptoms Reported Psychiatric: No Symptoms Reported All Other Systems: Reviewed and Negative PE Vital Signs Vitals: Vital Signs Temperature 98.1 F Pulse Rate 93 Respiratory Rate 18 Respiratory Rate 20 Blood Pressure 129/80 O2 Sat by Pulse Oximetry 100 General Limitations: No Limitations and Language Barrier General Appearance: Alert and In No Apparent Distress Head Head Exam: Normal Inspection Eyes Eye exam: Normal Appearance ENT ENT Exam: Normal Exam Neck Neck Exam: Normal Inspection Chest Chest Inspection: Normal Inspection Respiratory Respiratory Exam: Normal Lung Sounds Bilat Cardiovascular Cardiovascular Exam: Regular Rate and Normal Rhythm Abdominal Exam Abdominal Exam: Normal Inspection, Normal Bowel Sounds, Soft and Tenderness (Epigastrium left lower quadrant); negative Guarding or Rigidity Rectal Rectal Exam: Deferred Back Back Exam: Normal Inspection Extremeties Extremities Exam: Normal Inspection Neurologic Neurological Exam: Alert and Oriented X3 Psychiatric Psychiatric Exam: Normal Affect and Normal Mood Skin Skin Exam: Warm, Dry and Intact COURSE Treatment Treatment: Discussed findings with patient patient states that Is her surgeon. Contacted Dr. Mcmahon who recommends admission with IV fluid and antibiotics and p.o. Consultation Called: 12:36 Consultation Comments: Admit ROR Labs Reviewed 04/14/25 10:18 04/14/25 10:18 Laboratory: WBC 11.7 X10^3/uL (3.6-10.0) H 04/14/25 10:18 RBC 5.01 X10^6/uL (3.5-5.4) 04/14/25 10:18 Hgb 12.4 g/dL (12.0-16.0) 04/14/25 10:18 Hct 37.9 % (36.0-47.0) 04/14/25 10:18 MCV 75.8 fL (80.0-100.0) L 04/14/25 10:18 MCH 24.7 pg (27.0-34.0) L 04/14/25 10:18 MCHC 32.6 g/dL (33.0-35.0) L 04/14/25 10:18 RDW 17.0 % (11.6-16.5) H 04/14/25 10:18 Plt Count 299 X10^3/uL (150.0-450.0) 04/14/25 10:18 MPV 9.0 fL (7.4-11.0) 04/14/25 10:18 Neut % (Auto) 70.8 % (42.0-75.0) 04/14/25 10:18 Lymph % (Auto) 18.8 % (21.0-51.0) L 04/14/25 10:18 [place] % (Auto) 7.2 % (0.0-13.0) 04/14/25 10:18 Eos % (Auto) 2.3 % (0.9-2.9) 04/14/25 10:18 Baso % (Auto) 0.9 % (0.2-1.0) 04/14/25 10:18 Neut # (Auto) 8.3 x10^3/uL (2.2-4.8) H 04/14/25 10:18 Lymph # (Auto) 2.2 X10^3/uL (1.3-2.9) 04/14/25 10:18 [place] # (Auto) 0.8 x10^3/uL (0.3-0.8) 04/14/25 10:18 Eos # (Auto) 0.3 x10^3/uL (0.0-0.2) H 04/14/25 10:18 Baso # (Auto) 0.1 X10^3/uL (0.0-0.1) 04/14/25 10:18 Absolute Nucleated RBC 0.1 /100WBC 04/14/25 10:18 Sodium 138 mmol/L (136-145) 04/14/25 10:18 Corrected Sodium TNP 04/14/25 10:18 Potassium 3.6 mmol/L (3.5-5.1) 04/14/25 10:18 Chloride 103 mmol/L (98-107) 04/14/25 10:18 Carbon Dioxide 26.5 mmol/L (21-32) 04/14/25 10:18 BUN 10 mg/dL (7-18) 04/14/25 10:18 Creatinine 0.72 mg/dL (0.55-1.02) 04/14/25 10:18 Est GFR (MDRD) Af Amer > 60 (>60) 04/14/25 10:18 Est GFR (MDRD) Non-Af > 60 (>60) 04/14/25 10:18 Glucose 88 mg/dL (65-99) 04/14/25 10:18 Calcium 8.9 mg/dL (8.5-10.1) 04/14/25 10:18 Corrected Calcium TNP 04/14/25 10:18 Total Bilirubin 0.30 mg/dL (0.2-1.0) 04/14/25 10:18 AST 18 Units/L (15-37) 04/14/25 10:18 ALT 25 Units/L (12-78) 04/14/25 10:18 Alkaline Phosphatase 103 Units/L (46-116) 04/14/25 10:18 Total Protein 8.4 g/dL (6.4-8.2) H 04/14/25 10:18 Albumin 3.4 g/dL (3.4-5.0) 04/14/25 10:18 Globulin 5.0 g/dL (2.5-4.5) H 04/14/25 10:18 Albumin/Globulin Ratio 0.7 Ratio (1.1-2.1) L 04/14/25 10:18 HCG, Qual Negative <10 mIU/mL 04/14/25 10:18 Specimen Type Clean catch urine 04/14/25 12:11 Urine Color Yellow (YELLOW) 04/14/25 12:11 Urine Appearance Clear (CLEAR) 04/14/25 12:11 Urine pH 5.0 (5.0 - 8.0) 04/14/25 12:11 Ur Specific [place] 1.010 (1.000-1.030) 04/14/25 12:11 Urine Protein 1+ (NEGATIVE) 04/14/25 12:11 Urine Glucose (UA) Negative (NEGATIVE) 04/14/25 12:11 Urine Ketones Negative (NEGATIVE) 04/14/25 12:11 Urine Blood Negative (NEGATIVE) 04/14/25 12:11 Urine Nitrite Negative (NEGATIVE) 04/14/25 12:11 Urine Bilirubin Negative (NEGATIVE) 04/14/25 12:11 Urine Urobilinogen Normal (NORMAL) 04/14/25 12:11 Ur Leukocyte Esterase Negative (NEGATIVE) 04/14/25 12:11 Urine RBC None seen /HPF (0-3) 04/14/25 12:11 Urine WBC None seen /HPF (0-5) 04/14/25 12:11 Ur Squamous Epith Cells Rare /HPF (NEGATIVE) 04/14/25 12:11 Urine Bacteria Negative /HPF (NEGATIVE) 04/14/25 12:11 Ur Culture Indicated? No/not indicated 04/14/25 12:11 XRAY X-ray Results: Name: MAME DIALY : 1980 Sex: F Location: ER Order Number(s): [id number] Procedure(s):CT ABDOMEN/PELVIS WITH CON Ordering Physician: Sb Valadez Primary Care: ZAIN Tucker Service Date: 04/14/25 Service Time: 1108 EXAMINATION: ABDCMEN/PELVIS WITH CON HISTORY: ABDOMINAL PAIN; . COMPARISON: CT abdomen and pelvis 11/04/2024 TECHNIQUE: Postcontrast CT abdomen and pelvis was performed.. Reformatted images were obtained as well. Lack of oral contrast limits diagnostic sensitivity The above CT scan was done with automated exposure control and the mA and kV was adjusted to obtain quality images according to patient size. FINDINGS: Lung bases: No acute findings Liver: No acute finding or focal lesion. GB/Biliary: Cholecystectomy. No dilated ducts Spleen: Normal size and density Pancreas: No acute findings. No pseudocyst or dilated duct Adrenal Glands: No mass Kidneys: No obstructing stone, hydronephrosis or solid-appearing lesions. Abdominal aorta: Tapers and enhances normally. Mesenteric vessels are patent. Retroperitoneum: No pathologically enlarged lymph nodes. Bowel: Anastomosis in the right lower quadrant and mid abdomen. Mildly distended fluid-filled loops of small bowel with a zone of transition in the mid abdomen at the level of the iliac crest. Findings may represent partial SBO. No free air, pneumatosis or abscess. No thickened bowel. No CT evidence for appendicitis or diverticulitis. Bladder/: Ureters and bladder unremarkable. Fluid in the pelvis along the uterus. Uterus and adnexal structures otherwise unremarkable. No pelvic or adnexal mass noted. Osseous: No acute findings or bony lesions. IMPRESSION: Partial small bowel obstruction with zone of transition in the mid abdomen at the level of the iliac crest. No free air or pneumatosis. No CT evidence for appendicitis diverticulitis or obstructing renal stone. Minimal free fluid in the pelvis THIS IS AN ELECTRONICALLY VERIFIED FINAL REPORT 04/14/2025 12:21 PM - Electronically signed by Andrez Hussein MD Opioid Opioid Risk Tool Age (Rubén box if 16-45): Yes History of Preadolescent Sexual Abuse: No Total: 1 Total Score Risk Category: Low Risk Copyright: [facility] predicting aberrant behaviors Discharge Plan Diagnosis Discharge Problem: SBO (small bowel obstruction) Discharge Plan Patient Disposition: ADMITTED INPATIENT Condition: Stable Prescriptions: No Action famotidine 40 mg tablet 40 mg PO QDAY Qty: 90 1RF losartan-hydrochlorothiazide 50-12.5 mg tablet 1 tab PO QDAY Qty: 30 1RF Health Concerns: Post Hospitalization: new medications and changes needed to prevent readmission or further decline. Pt educated and given instructions on all concerns. Plan of Treatment: Continue with present treatment and follow up plan. Pt is to keep follow up appointment as instructed and take medications as ordered. Follow ups/Referrals Follow ups/Referrals: Aissatou Terrazas FNP [Primary Care Provider, Unknown] - 3 days Instructions Print Language: BENGALI
[2025-04-14 10:28] LABS: MEAN PLATELET VOLUME 9.0 fL (7.4-11.0); RED CELL DISTRIBUTION WIDTH 17.0 % (11.6-16.5)
[2025-04-14] MEDS: ZOFRAN INJ 4 MG VIAL IVP ONE ×2 (10:46→11:13)
[2025-04-14 10:55] LABS: SERUM PREGNANCY TEST, QUAL NEGATIVE <10 mIU/mL
[2025-04-14 10:56] LABS: CREATININE 0.72 mg/dL (0.55-1.02); eGFR NON BLACK RACES > 60 (>60)
[2025-04-14] MEDS: MORPHINE SULFATE INJ 2 MG INJ IVP ONE (11:13)
[2025-04-14 12:21] LABS: BLOOD/HEMOGLOBIN,URINE NEGATIVE (NEGATIVE); LEUKOCYTE ESTERASE ,URINE NEGATIVE (NEGATIVE); NITRITES,URINE NEGATIVE (NEGATIVE)
--- NOTE | 2025-04-14 12:24 | CT ---
EXAMINATION: ABDCMEN/PELVIS WITH CON HISTORY: ABDOMINAL PAIN; . COMPARISON: CT abdomen and pelvis 11/04/2024 TECHNIQUE: Postcontrast CT abdomen and pelvis was performed.. Reformatted images were obtained as well. Lack of oral contrast limits diagnostic sensitivity The above CT scan was done with automated exposure control and the mA and kV was adjusted to obtain quality images according to patient size. FINDINGS: Lung bases: No acute findings Liver: No acute finding or focal lesion. GB/Biliary: Cholecystectomy. No dilated ducts Spleen: Normal size and density Pancreas: No acute findings. No pseudocyst or dilated duct Adrenal Glands: No mass Kidneys: No obstructing stone, hydronephrosis or solid-appearing lesions. Abdominal aorta: Tapers and enhances normally. Mesenteric vessels are patent. Retroperitoneum: No pathologically enlarged lymph nodes. Bowel: Anastomosis in the right lower quadrant and mid abdomen. Mildly distended fluid-filled loops of small bowel with a zone of transition in the mid abdomen at the level of the iliac crest. Findings may represent partial SBO. No free air, pneumatosis or abscess. No thickened bowel. No CT evidence for appendicitis or diverticulitis. Bladder/: Ureters and bladder unremarkable. Fluid in the pelvis along the uterus. Uterus and adnexal structures otherwise unremarkable. No pelvic or adnexal mass noted. Osseous: No acute findings or bony lesions. IMPRESSION: Partial small bowel obstruction with zone of transition in the mid abdomen at the level of the iliac crest. No free air or pneumatosis. No CT evidence for appendicitis diverticulitis or obstructing renal stone. Minimal free fluid in the pelvis THIS IS AN ELECTRONICALLY VERIFIED FINAL REPORT 04/14/2025 12:21 PM - Electronically signed by Andrez Hussein MD
[2025-04-14 12:30] LABS: APPEARANCE,URINE CLEAR (CLEAR)
[2025-04-14 12:31] LABS: SQUAMOUS EPITHELIAL CELL,UR RARE /HPF (NEGATIVE)
[2025-04-14] MEDS: OMNIPAQUE 350 mg/mL 100 mL BTL 100 ML ONE (14:18)
[2025-04-14] MEDS: ZOFRAN INJ 4 MG VIAL ONE (14:18)
[2025-04-14] MEDS ORDERED: CONSULT PHARMACY - POTASSIUM & MAGNESIUM XX SCH (14:34)
[2025-04-14] MEDS ORDERED: TYLENOL 325 MG TAB PO PRN (14:34)
[2025-04-14] MEDS: ZOFRAN INJ 4 MG VIAL IVP PRN (15:27)
[2025-04-14] MEDS: NS 1,000 ML IV 1,000 ML IV SCH (15:27)
[2025-04-14] MEDS: PEPCID TAB 40 MG PO SCH (15:29)
[2025-04-14] MEDS: HYZAAR 50/12.5 MG PO SCH (15:29)
[2025-04-14] MEDS: K-RIDER 10 MEQ/100 ML WATER 10 MEQ/100 ML BAG IV SCH (15:30)
[2025-04-14] MEDS: ZOSYN VIAL 3.375 GRAMS 3.375 G in NS 100 ML IV 100 ML IV SCH (15:30)
[2025-04-14] MEDS: NORCO 5/325 MG TAB PO PRN (15:30)
[2025-04-14] MEDS: NS 250 ML IV 250 ML IV ONE (18:01)
[2025-04-14] MEDS: MORPHINE SULFATE INJ 2 MG INJ IVP PRN (22:57)
[2025-04-15 06:03] LABS: MEAN PLATELET VOLUME 10.0 fL (7.4-11.0); RED CELL DISTRIBUTION WIDTH 17.4 % (11.6-16.5)
[2025-04-15 06:17] LABS: COR CA(FOR HYPOALB) 8.9 mg/dL (8.5-10.1); COR NA(FOR HYPERGLY) 142 mmol/L (136-145); CREATININE 0.79 mg/dL (0.55-1.02); eGFR NON BLACK RACES > 60 (>60)
[2025-04-15] MEDS ORDERED: CONSULT PHARMACY - POTASSIUM & MAGNESIUM XX SCH (07:00)
[2025-04-15 07:05] LABS: PLATELET MORPHOLOGY COMMENT NORMAL (NORMAL)
--- NOTE | 2025-04-15 07:52 | RAD ---
EXAM: KUB HISTORY: SBO; HTN, GERD, CROHN'S, LUPUS, ANEMIA SX: APPY, ROBEL, CSECTION, BOWEL RESECTION, ORAL, FACIAL PLASTIC SURG COMPARISON: CT abdomen and pelvis 04/14/2025 TECHNIQUE: Two views FINDINGS: Interval improvement in bowel gas pattern with less distended loops compared with the prior study. No air-fluid levels. No free air. Surgical clips in the right upper quadrant. Pubic symphysis is not included on the study. No abnormal calcifications in the distribution of the kidneys or ureters. Bony structures are unremarkable. IMPRESSION: Improved bowel gas pattern with less distended loops compared with the prior study. No free air THIS IS AN ELECTRONICALLY VERIFIED FINAL REPORT 04/15/2025 7:48 AM - Electronically signed by Andrez Hussein MD
[2025-04-15] MEDS: K-RIDER 10 MEQ/100 ML WATER 10 MEQ/100 ML BAG IV SCH (08:17)
[2025-04-15] MEDS: MAGNESIUM SULFATE 1 GRAM/100 mL PREMIX 1 G/100 ML BAG IV SCH (08:17)
[2025-04-15] MEDS ORDERED: PHARMACY CONSULT XX SCH (10:00)
--- NOTE | 2025-04-15 10:22 | DR.PROGNOT ---
HOSPITAL PROGRESS NOTE Progress Note for Day of: Progress Note Date: 04/15/25 Chief Complaint Chief Complaint: Complaining of abdominal pain mainly right upper quadrant and mid abdomen. No nausea or vomiting, had only small watery bowel movement, no bleeding. White count is 9, potassium 3.6 BUN/creatinine are normal, blood sugar is 130 most probably from the steroids. Abdominal x-ray showed resolving small bowel obstruction, no air-fluid level. Abdomen is soft, full with moderate right side tenderness, no rebound or rigidity, bowel sounds present. Past Medical Family Social History Past Med/Fam/Surg Hx: No changes since H&P and Changes noted (describe) Allergies: Allergies bee pollen Allergy (Severe, Verified 03/31/25 10:27) ANAPHALEXIS REACTION adhesive tape (tape (adhesive)) Allergy (Verified 03/31/25 10:27) rash bee venom protein (honey bee) Allergy (Verified 03/31/25 10:27) ANAPHALEXIS REACTION latex Allergy (Verified 03/31/25 10:27) rash shellfish derived Allergy (Verified 03/31/25 10:27) ANAPHALEXIS REACTION Review Of Systems ROS: No change since H&P Vital Signs Vital Signs: Vital Signs Temperature 97.6 F Pulse Rate [Apical] 54 Respiratory Rate 19 Respiratory Rate 19 Respiratory Rate 17 Respiratory Rate 17 Blood Pressure [Right Arm] 94/51 O2 Sat by Pulse Oximetry 99 Physical Exam Oriented: Normal Eyes: Normal Ear: Normal Nose: Normal Throat: Normal Respiratory: Normal Cardiovascular: Normal GI:Auscultation: Normal GI:Palpation: Normal GI: Tenderness: Diffuse and RUQ Speech Pattern: Clear and Appropriate Laboratory and Diagnostics 04/15/25 05:22 04/15/25 05:22 Labs: Laboratory WBC 9.0 X10^3/uL (3.6-10.0) 04/15/25 05:22 RBC 4.50 X10^6/uL (3.5-5.4) 04/15/25 05:22 Hgb 11.3 g/dL (12.0-16.0) L 04/15/25 05:22 Hct 34.2 % (36.0-47.0) L 04/15/25 05:22 MCV 76.0 fL (80.0-100.0) L 04/15/25 05:22 MCH 25.1 pg (27.0-34.0) L 04/15/25 05:22 MCHC 33.1 g/dL (33.0-35.0) 04/15/25 05:22 RDW 17.4 % (11.6-16.5) H 04/15/25 05:22 Plt Count 278 X10^3/uL (150.0-450.0) 04/15/25 05:22 Plt Count Comment Adequate (ADEQUATE) 04/15/25 05:22 MPV 10.0 fL (7.4-11.0) 04/15/25 05:22 Neut % (Auto) 91.6 % (42.0-75.0) H 04/15/25 05:22 Lymph % (Auto) 7.2 % (21.0-51.0) L 04/15/25 05:22 [place] % (Auto) 0.9 % (0.0-13.0) 04/15/25 05:22 Eos % (Auto) 0.0 % (0.9-2.9) L 04/15/25 05:22 Baso % (Auto) 0.3 % (0.2-1.0) 04/15/25 05:22 Neut # (Auto) 8.2 x10^3/uL (2.2-4.8) H 04/15/25 05:22 Lymph # (Auto) 0.7 X10^3/uL (1.3-2.9) L 04/15/25 05:22 [place] # (Auto) 0.1 x10^3/uL (0.3-0.8) L 04/15/25 05:22 Eos # (Auto) 0.0 x10^3/uL (0.0-0.2) 04/15/25 05:22 Baso # (Auto) 0.0 X10^3/uL (0.0-0.1) 04/15/25 05:22 Absolute Nucleated RBC 0.1 /100WBC 04/15/25 05:22 Total Counted 100 04/15/25 05:22 Neutrophils % (Manual) 94 % (39-76) H 04/15/25 05:22 Lymphocytes % (Manual) 5 % (13-43) L 04/15/25 05:22 Monocytes % (Manual) 1 % (4-9) L 04/15/25 05:22 Plt Morphology Comment Normal (NORMAL) 04/15/25 05:22 RBC Morphology Abnormal (NORMAL) A 04/15/25 05:22 Anisocytosis Slight A 04/15/25 05:22 Sodium 141 mmol/L (136-145) 04/15/25 05:22 Corrected Sodium 142 mmol/L (136-145) 04/15/25 05:22 Potassium 3.6 mmol/L (3.5-5.1) 04/15/25 05:22 Chloride 105 mmol/L (98-107) 04/15/25 05:22 Carbon Dioxide 24.8 mmol/L (21-32) 04/15/25 05:22 BUN 10 mg/dL (7-18) 04/15/25 05:22 Creatinine 0.79 mg/dL (0.55-1.02) 04/15/25 05:22 Est GFR (MDRD) Af Amer > 60 (>60) 04/15/25 05:22 Est GFR (MDRD) Non-Af > 60 (>60) 04/15/25 05:22 Glucose 130 mg/dL (65-99) H 04/15/25 05:22 Calcium 7.9 mg/dL (8.5-10.1) L 04/15/25 05:22 Corrected Calcium 8.9 mg/dL (8.5-10.1) 04/15/25 05:22 Magnesium 1.9 mg/dL (2.0-2.9) L 04/15/25 05:22 Total Bilirubin 0.40 mg/dL (0.2-1.0) 04/15/25 05:22 AST 53 Units/L (15-37) H 04/15/25 05:22 ALT 74 Units/L (12-78) 04/15/25 05:22 Alkaline Phosphatase 118 Units/L (46-116) H 04/15/25 05:22 Total Protein 7.4 g/dL (6.4-8.2) 04/15/25 05:22 Albumin 2.8 g/dL (3.4-5.0) L 04/15/25 05:22 Globulin 4.6 g/dL (2.5-4.5) H 04/15/25 05:22 Albumin/Globulin Ratio 0.6 Ratio (1.1-2.1) L 04/15/25 05:22 HCG, Qual Negative <10 mIU/mL 04/14/25 10:18 Specimen Type Clean catch urine 04/14/25 12:11 Urine Color Yellow (YELLOW) 04/14/25 12:11 Urine Appearance Clear (CLEAR) 04/14/25 12:11 Urine pH 5.0 (5.0 - 8.0) 04/14/25 12:11 Ur Specific [place] 1.010 (1.000-1.030) 04/14/25 12:11 Urine Protein 1+ (NEGATIVE) 04/14/25 12:11 Urine Glucose (UA) Negative (NEGATIVE) 04/14/25 12:11 Urine Ketones Negative (NEGATIVE) 04/14/25 12:11 Urine Blood Negative (NEGATIVE) 04/14/25 12:11 Urine Nitrite Negative (NEGATIVE) 04/14/25 12:11 Urine Bilirubin Negative (NEGATIVE) 04/14/25 12:11 Urine Urobilinogen Normal (NORMAL) 04/14/25 12:11 Ur Leukocyte Esterase Negative (NEGATIVE) 04/14/25 12:11 Urine RBC None seen /HPF (0-3) 04/14/25 12:11 Urine WBC None seen /HPF (0-5) 04/14/25 12:11 Ur Squamous Epith Cells Rare /HPF (NEGATIVE) 04/14/25 12:11 Urine Bacteria Negative /HPF (NEGATIVE) 04/14/25 12:11 Ur Culture Indicated? No/not indicated 04/14/25 12:11 Assessment and Plan 1: Resolving partial small bowel obstruction. To start on clear liquid. 2: Crohn disease s/p resection. On IV steroids. Same IV fluid and antibiotics. Problem Patient Problems: Patient Problems SBO (small bowel obstruction) (Acute) K56.606
[2025-04-16 05:50] LABS: MEAN PLATELET VOLUME 10.1 fL (7.4-11.0); RED CELL DISTRIBUTION WIDTH 17.3 % (11.6-16.5)
[2025-04-16 06:08] LABS: COR CA(FOR HYPOALB) 8.5 mg/dL (8.5-10.1); COR NA(FOR HYPERGLY) 143 mmol/L (136-145); CREATININE 0.79 mg/dL (0.55-1.02); eGFR NON BLACK RACES > 60 (>60)
[2025-04-16 06:42] LABS: BAND NEUTROPHILS % 1 % (0-10); PLATELET MORPHOLOGY COMMENT NORMAL (NORMAL)
[2025-04-16] MEDS ORDERED: CONSULT PHARMACY - POTASSIUM & MAGNESIUM XX SCH ×2 (07:00)
--- NOTE | 2025-04-16 07:07 | RAD ---
EXAM: KUB HISTORY: ABDOMINAL PAIN ; HTN, GERD, CROHN'S, LUPUS, ANEMIA SX: ABD, APPY, BOWEL RESECTION, ROBEL, ORAL, FACIAL PLASTIC SURG COMPARISON: 04/15/2025 TECHNIQUE: Two views FINDINGS: Improved bowel gas pattern with less distended loops. No air-fluid levels. Moderate stool in the left colon. Bowel gas and stool to the level of the rectum. No free air. No abnormal calcifications in the distribution of the kidneys or ureters. Bony structures unchanged. Cholecystectomy. IMPRESSION: Improved bowel gas pattern with less distended loops. No pneumoperitoneum THIS IS AN ELECTRONICALLY VERIFIED FINAL REPORT 04/16/2025 7:03 AM - Electronically signed by Andrez Hussein MD
[2025-04-16] MEDS: MAG-OX TAB PO SCH (08:09)
[2025-04-16] MEDS: POTASSIUM CHLORIDE LIQ PO ONE (08:10)
--- NOTE | 2025-04-16 09:12 | DR.PROGNOT ---
HOSPITAL PROGRESS NOTE Progress Note for Day of: Progress Note Date: 04/16/25 Chief Complaint Chief Complaint: Complaining of right lower quadrant pain, no nausea or vomiting, no bowel movement yet but passing flatus. Repeated KUB today showed improving small bowel obstruction, no air-fluid level White count is 15.9 consistent with the steroid medications, hemoglobin 9.4, BUN/creatinine and liver function test all normal. Abdomen is soft but full with diffuse tenderness mainly involving the right side. Rest of her systemic review is the same as before.. Past Medical Family Social History Past Med/Fam/Surg Hx: No changes since H&P and Changes noted (describe) Allergies: Allergies bee pollen Allergy (Severe, Verified 03/31/25 10:27) ANAPHALEXIS REACTION adhesive tape (tape (adhesive)) Allergy (Verified 03/31/25 10:27) rash bee venom protein (honey bee) Allergy (Verified 03/31/25 10:27) ANAPHALEXIS REACTION latex Allergy (Verified 03/31/25 10:27) rash shellfish derived Allergy (Verified 03/31/25 10:27) ANAPHALEXIS REACTION Review Of Systems ROS: No change since H&P Vital Signs Vital Signs: Vital Signs Temperature 98.1 F Temperature 97.8 F Pulse Rate [Apical] 52 Pulse Rate [Apical] 53 Respiratory Rate 19 Respiratory Rate 18 Blood Pressure [Right Arm] 127/78 Blood Pressure [Right Arm] 104/56 O2 Sat by Pulse Oximetry 96 O2 Sat by Pulse Oximetry 96 Physical Exam Oriented: Normal Eyes: Normal Ear: Normal Nose: Normal Throat: Normal Respiratory: Normal Cardiovascular: Normal GI:Auscultation: Normal GI:Palpation: Normal GI: Tenderness: Diffuse and RLQ (Moderate and diffuse, bowel sounds present) Speech Pattern: Clear and Appropriate Laboratory and Diagnostics 04/16/25 05:35 04/16/25 05:35 Labs: Laboratory WBC 15.9 X10^3/uL (3.6-10.0) H 04/16/25 05:35 RBC 3.70 X10^6/uL (3.5-5.4) 04/16/25 05:35 Hgb 9.4 g/dL (12.0-16.0) L 04/16/25 05:35 Hct 28.1 % (36.0-47.0) L 04/16/25 05:35 MCV 75.7 fL (80.0-100.0) L 04/16/25 05:35 MCH 25.3 pg (27.0-34.0) L 04/16/25 05:35 MCHC 33.4 g/dL (33.0-35.0) 04/16/25 05:35 RDW 17.3 % (11.6-16.5) H 04/16/25 05:35 Plt Count 260 X10^3/uL (150.0-450.0) 04/16/25 05:35 Plt Count Comment Adequate (ADEQUATE) 04/16/25 05:35 MPV 10.1 fL (7.4-11.0) 04/16/25 05:35 Neut % (Auto) 90.1 % (42.0-75.0) H 04/16/25 05:35 Lymph % (Auto) 5.7 % (21.0-51.0) L 04/16/25 05:35 [place] % (Auto) 3.7 % (0.0-13.0) 04/16/25 05:35 Eos % (Auto) 0.0 % (0.9-2.9) L 04/16/25 05:35 Baso % (Auto) 0.5 % (0.2-1.0) 04/16/25 05:35 Neut # (Auto) 14.3 x10^3/uL (2.2-4.8) H 04/16/25 05:35 Lymph # (Auto) 0.9 X10^3/uL (1.3-2.9) L 04/16/25 05:35 [place] # (Auto) 0.6 x10^3/uL (0.3-0.8) 04/16/25 05:35 Eos # (Auto) 0.0 x10^3/uL (0.0-0.2) 04/16/25 05:35 Baso # (Auto) 0.1 X10^3/uL (0.0-0.1) 04/16/25 05:35 Absolute Nucleated RBC 0.0 /100WBC 04/16/25 05:35 Total Counted 100 04/16/25 05:35 Neutrophils % (Manual) 91 % (39-76) H 04/16/25 05:35 Band Neutrophils % 1 % (0-10) 04/16/25 05:35 Lymphocytes % (Manual) 7 % (13-43) L 04/16/25 05:35 Monocytes % (Manual) 1 % (4-9) L 04/16/25 05:35 Plt Morphology Comment Normal (NORMAL) 04/16/25 05:35 RBC Morphology Abnormal (NORMAL) A 04/16/25 05:35 Hypochromasia Slight A 04/16/25 05:35 Anisocytosis Slight A 04/15/25 05:22 Microcytosis Slight A 04/16/25 05:35 Sodium 142 mmol/L (136-145) 04/16/25 05:35 Corrected Sodium 143 mmol/L (136-145) 04/16/25 05:35 Potassium 3.7 mmol/L (3.5-5.1) 04/16/25 05:35 Chloride 109 mmol/L (98-107) H 04/16/25 05:35 Carbon Dioxide 22.4 mmol/L (21-32) 04/16/25 05:35 BUN 12 mg/dL (7-18) 04/16/25 05:35 Creatinine 0.79 mg/dL (0.55-1.02) 04/16/25 05:35 Est GFR (MDRD) Af Amer > 60 (>60) 04/16/25 05:35 Est GFR (MDRD) Non-Af > 60 (>60) 04/16/25 05:35 Glucose 136 mg/dL (65-99) H 04/16/25 05:35 Calcium 7.3 mg/dL (8.5-10.1) L 04/16/25 05:35 Corrected Calcium 8.5 mg/dL (8.5-10.1) 04/16/25 05:35 Magnesium 2.3 mg/dL (2.0-2.9) 04/16/25 05:35 Total Bilirubin 0.10 mg/dL (0.2-1.0) L 04/16/25 05:35 AST 23 Units/L (15-37) 04/16/25 05:35 ALT 48 Units/L (12-78) 04/16/25 05:35 Alkaline Phosphatase 84 Units/L (46-116) 04/16/25 05:35 Total Protein 6.5 g/dL (6.4-8.2) 04/16/25 05:35 Albumin 2.5 g/dL (3.4-5.0) L 04/16/25 05:35 Globulin 4.0 g/dL (2.5-4.5) 04/16/25 05:35 Albumin/Globulin Ratio 0.6 Ratio (1.1-2.1) L 04/16/25 05:35 HCG, Qual Negative <10 mIU/mL 04/14/25 10:18 Specimen Type Clean catch urine 04/14/25 12:11 Urine Color Yellow (YELLOW) 04/14/25 12:11 Urine Appearance Clear (CLEAR) 04/14/25 12:11 Urine pH 5.0 (5.0 - 8.0) 04/14/25 12:11 Ur Specific [place] 1.010 (1.000-1.030) 04/14/25 12:11 Urine Protein 1+ (NEGATIVE) 04/14/25 12:11 Urine Glucose (UA) Negative (NEGATIVE) 04/14/25 12:11 Urine Ketones Negative (NEGATIVE) 04/14/25 12:11 Urine Blood Negative (NEGATIVE) 04/14/25 12:11 Urine Nitrite Negative (NEGATIVE) 04/14/25 12:11 Urine Bilirubin Negative (NEGATIVE) 04/14/25 12:11 Urine Urobilinogen Normal (NORMAL) 04/14/25 12:11 Ur Leukocyte Esterase Negative (NEGATIVE) 04/14/25 12:11 Urine RBC None seen /HPF (0-3) 04/14/25 12:11 Urine WBC None seen /HPF (0-5) 04/14/25 12:11 Ur Squamous Epith Cells Rare /HPF (NEGATIVE) 04/14/25 12:11 Urine Bacteria Negative /HPF (NEGATIVE) 04/14/25 12:11 Ur Culture Indicated? No/not indicated 04/14/25 12:11 Assessment and Plan 1: Resolving partial small bowel obstruction. To start on full liquid. Same IV antibiotics and steroids 2: Crohn disease s/p resection. On IV steroids. Same IV fluid and antibiotics. Problem Patient Problems: Patient Problems SBO (small bowel obstruction) (Acute) K56.609
[2025-04-17] MEDS: NS 250 ML IV 25 ML IV PRN (03:57)
[2025-04-17 07:07] LABS: MEAN PLATELET VOLUME 10.1 fL (7.4-11.0); RED CELL DISTRIBUTION WIDTH 17.8 % (11.6-16.5)
[2025-04-17 07:18] LABS: PLATELET MORPHOLOGY COMMENT NORMAL (NORMAL)
[2025-04-17 07:51] LABS: COR CA(FOR HYPOALB) 8.5 mg/dL (8.5-10.1); COR NA(FOR HYPERGLY) 143 mmol/L (136-145); CREATININE 0.95 mg/dL (0.55-1.02); eGFR NON BLACK RACES > 60 (>60)
[2025-04-17] MEDS: LASIX IVP ONE (13:09)
[2025-04-17] MEDS: NS 1,000 ML IV 1,000 ML IV SCH (13:36)
--- NOTE | 2025-04-17 14:19 | DR.PROGNOT ---
HOSPITAL PROGRESS NOTE Progress Note for Day of: Progress Note Date: 04/17/25 Chief Complaint Chief Complaint: Complaining of bloating feeling, no bowel movement yet. Having peripheral edema and moderate shortness of breath today. Pulse rate was slow in the 40s and 50s. Moderate elevated blood pressure 149/69. White count is 14.7, slight elevated liver enzymes with normal bilirubin. Abdomen is soft with moderate distention, bowel sounds present. Past Medical Family Social History Past Med/Fam/Surg Hx: No changes since H&P and Changes noted (describe) Allergies: Allergies bee pollen Allergy (Severe, Verified 03/31/25 10:27) ANAPHALEXIS REACTION adhesive tape (tape (adhesive)) Allergy (Verified 03/31/25 10:27) rash bee venom protein (honey bee) Allergy (Verified 03/31/25 10:27) ANAPHALEXIS REACTION latex Allergy (Verified 03/31/25 10:27) rash shellfish derived Allergy (Verified 03/31/25 10:27) ANAPHALEXIS REACTION Review Of Systems ROS: No change since H&P Vital Signs Vital Signs: Vital Signs Temperature 97.7 F Pulse Rate [Apical] 58 Respiratory Rate 22 Blood Pressure [Right Arm] 149/69 O2 Sat by Pulse Oximetry 97 Physical Exam Oriented: Normal Eyes: Normal Ear: Normal Nose: Normal Throat: Normal Respiratory: Normal and OTHER (Clear lung.) Cardiovascular: Normal GI:Auscultation: Normal GI:Palpation: Normal GI: Tenderness: Diffuse and RLQ (Moderate and diffuse, bowel sounds present) Skin: Other (Peripheral edema 1-2+.) Speech Pattern: Clear and Appropriate Laboratory and Diagnostics 04/17/25 06:36 04/17/25 06:36 Labs: Laboratory WBC 14.7 X10^3/uL (3.6-10.0) H 04/17/25 06:36 RBC 4.07 X10^6/uL (3.5-5.4) 04/17/25 06:36 Hgb 10.1 g/dL (12.0-16.0) L 04/17/25 06:36 Hct 30.8 % (36.0-47.0) L 04/17/25 06:36 MCV 75.8 fL (80.0-100.0) L 04/17/25 06:36 MCH 24.9 pg (27.0-34.0) L 04/17/25 06:36 MCHC 32.9 g/dL (33.0-35.0) L 04/17/25 06:36 RDW 17.8 % (11.6-16.5) H 04/17/25 06:36 Plt Count 290 X10^3/uL (150.0-450.0) 04/17/25 06:36 Plt Count Comment Adequate (ADEQUATE) 04/17/25 06:36 MPV 10.1 fL (7.4-11.0) 04/17/25 06:36 Neut % (Auto) 88.2 % (42.0-75.0) H 04/17/25 06:36 Lymph % (Auto) 5.9 % (21.0-51.0) L 04/17/25 06:36 [place] % (Auto) 4.6 % (0.0-13.0) 04/17/25 06:36 Eos % (Auto) 0.3 % (0.9-2.9) L 04/17/25 06:36 Baso % (Auto) 1.0 % (0.2-1.0) 04/17/25 06:36 Neut # (Auto) 12.9 x10^3/uL (2.2-4.8) H 04/17/25 06:36 Lymph # (Auto) 0.9 X10^3/uL (1.3-2.9) L 04/17/25 06:36 [place] # (Auto) 0.7 x10^3/uL (0.3-0.8) 04/17/25 06:36 Eos # (Auto) 0.0 x10^3/uL (0.0-0.2) 04/17/25 06:36 Baso # (Auto) 0.1 X10^3/uL (0.0-0.1) 04/17/25 06:36 Absolute Nucleated RBC 0.1 /100WBC 04/17/25 06:36 Total Counted 100 04/17/25 06:36 Neutrophils % (Manual) 92 % (39-76) H 04/17/25 06:36 Band Neutrophils % 1 % (0-10) 04/16/25 05:35 Lymphocytes % (Manual) 7 % (13-43) L 04/17/25 06:36 Monocytes % (Manual) 1 % (4-9) L 04/17/25 06:36 Plt Morphology Comment Normal (NORMAL) 04/17/25 06:36 RBC Morphology Abnormal (NORMAL) A 04/17/25 06:36 Hypochromasia Slight A 04/17/25 06:36 Anisocytosis Slight A 04/17/25 06:36 Microcytosis Slight A 04/17/25 06:36 Sodium 142 mmol/L (136-145) 04/17/25 06:36 Corrected Sodium 143 mmol/L (136-145) 04/17/25 06:36 Potassium 4.0 mmol/L (3.5-5.1) 04/17/25 06:36 Chloride 108 mmol/L (98-107) H 04/17/25 06:36 Carbon Dioxide 24.0 mmol/L (21-32) 04/17/25 06:36 BUN 13 mg/dL (7-18) 04/17/25 06:36 Creatinine 0.95 mg/dL (0.55-1.02) 04/17/25 06:36 Est GFR (MDRD) Af Amer > 60 (>60) 04/17/25 06:36 Est GFR (MDRD) Non-Af > 60 (>60) 04/17/25 06:36 Glucose 129 mg/dL (65-99) H 04/17/25 06:36 Calcium 7.5 mg/dL (8.5-10.1) L 04/17/25 06:36 Corrected Calcium 8.5 mg/dL (8.5-10.1) 04/17/25 06:36 Magnesium 2.3 mg/dL (2.0-2.9) 04/16/25 05:35 Total Bilirubin 0.20 mg/dL (0.2-1.0) 04/17/25 06:36 AST 47 Units/L (15-37) H 04/17/25 06:36 ALT 112 Units/L (12-78) H 04/17/25 06:36 Alkaline Phosphatase 88 Units/L (46-116) 04/17/25 06:36 Total Protein 6.7 g/dL (6.4-8.2) 04/17/25 06:36 Albumin 2.8 g/dL (3.4-5.0) L 04/17/25 06:36 Globulin 3.9 g/dL (2.5-4.5) 04/17/25 06:36 Albumin/Globulin Ratio 0.7 Ratio (1.1-2.1) L 04/17/25 06:36 HCG, Qual Negative <10 mIU/mL 04/14/25 10:18 Specimen Type Clean catch urine 04/14/25 12:11 Urine Color Yellow (YELLOW) 04/14/25 12:11 Urine Appearance Clear (CLEAR) 04/14/25 12:11 Urine pH 5.0 (5.0 - 8.0) 04/14/25 12:11 Ur Specific [place] 1.010 (1.000-1.030) 04/14/25 12:11 Urine Protein 1+ (NEGATIVE) 04/14/25 12:11 Urine Glucose (UA) Negative (NEGATIVE) 04/14/25 12:11 Urine Ketones Negative (NEGATIVE) 04/14/25 12:11 Urine Blood Negative (NEGATIVE) 04/14/25 12:11 Urine Nitrite Negative (NEGATIVE) 04/14/25 12:11 Urine Bilirubin Negative (NEGATIVE) 04/14/25 12:11 Urine Urobilinogen Normal (NORMAL) 04/14/25 12:11 Ur Leukocyte Esterase Negative (NEGATIVE) 04/14/25 12:11 Urine RBC None seen /HPF (0-3) 04/14/25 12:11 Urine WBC None seen /HPF (0-5) 04/14/25 12:11 Ur Squamous Epith Cells Rare /HPF (NEGATIVE) 04/14/25 12:11 Urine Bacteria Negative /HPF (NEGATIVE) 04/14/25 12:11 Ur Culture Indicated? No/not indicated 04/14/25 12:11 Assessment and Plan 1: Resolving partial small bowel obstruction. To start on full liquid. Will reduce IV fluid and stop the steroids. 2: Crohn disease s/p resection. 3: Hypertension, bradycardia and peripheral edema. Will reduce the IV fluid, stop steroids and give patient Lasix IV. Medical consultation. Problem Patient Problems: Patient Problems SBO (small bowel obstruction) (Acute) K56.449
[2025-04-17 16:08] LABS: BLOOD/HEMOGLOBIN,URINE 1+ (NEGATIVE); LEUKOCYTE ESTERASE ,URINE NEGATIVE (NEGATIVE); NITRITES,URINE NEGATIVE (NEGATIVE)
[2025-04-17 16:16] LABS: APPEARANCE,URINE CLEAR (CLEAR)
[2025-04-17 16:17] LABS: SQUAMOUS EPITHELIAL CELL,UR NEGATIVE /HPF (NEGATIVE)
--- NOTE | 2025-04-17 22:36 | RAD ---
EXAMINATION: CHEST, 1 VIEW HISTORY: SBO; . COMPARISON STUDY: Chest x-ray 06/30/2024 TECHNIQUE: Single semi-erect portable AP view of the chest FINDINGS: Lungs are expanded. Subtle bibasilar opacities. Heart size and pulmonary vascular pattern appear normal. CP angles are sharp. Bones are intact IMPRESSION: Subtle bibasilar opacities. THIS IS AN ELECTRONICALLY VERIFIED FINAL REPORT 04/17/2025 10:33 PM - Electronically signed by Sallie Mcdonald MD
[2025-04-18] MEDS: TORADOL 30 MG VIAL IVP PRN (00:44)
[2025-04-18 05:02] LABS: MEAN PLATELET VOLUME 9.5 fL (7.4-11.0); RED CELL DISTRIBUTION WIDTH 18.4 % (11.6-16.5)
[2025-04-18 05:12] LABS: COR CA(FOR HYPOALB) 8.4 mg/dL (8.5-10.1); CREATININE 1.04 mg/dL (0.55-1.02); eGFR NON BLACK RACES > 60 (>60)
--- NOTE | 2025-04-18 06:41 | RAD ---
EXAM: KUB HISTORY: SBO; COMPARISON: 04/16/2025 TECHNIQUE: Two views FINDINGS: The bowel gas pattern is improved with less distended loops and no air-fluid levels. No free air. Decrease in the amount of stool present. Gas to the level of the rectum. No abnormal calcifications in the distribution of the kidneys or ureters. Bony structures unremarkable. Cholecystectomy. IMPRESSION: Improved bowel gas pattern with less distended loops no air-fluid levels. THIS IS AN ELECTRONICALLY VERIFIED FINAL REPORT 04/18/2025 6:38 AM - Electronically signed by Andrez Hussein MD
[2025-04-18] MEDS: LASIX IVP ONE (08:26)
--- NOTE | 2025-04-18 15:17 | DR.CONSULT ---
CONSULT Consultation for Day of: Date: 04/18/25 Chief Complaint Chief Complaint: sinus bradycardia Allergies Allergies Allergy/AdvReac Type Severity Reaction Status Date / Time bee pollen Allergy Severe ANAPHALEXIS Verified 03/31/25 10:27 REACTION adhesive tape (tape Allergy Verified 03/31/25 10:27 (adhesive)) bee venom protein (honey bee) Allergy ANAPHALEXIS Verified 03/31/25 10:27 REACTION latex Allergy Verified 03/31/25 10:27 shellfish derived Allergy ANAPHALEXIS Verified 03/31/25 10:27 REACTION History of Present Illness History of Present Illness: Consult placed by surgical team due to sinus bradycardia on nursing exam and telemetry. Review of her chart shows that she has had multiple episodes anywhere between 31-59 over the last year. She does report occasional orthostatic symptoms with fatigue and dizziness. Was worked up as a teenager in [place] with benign findings. She has not seen cardiology since then. Currently reports that she is feeling much improved from her SBO. Appetite is coming back and belly pain is improved. She is anxious to discharge today or tomorrow. She has not had a bowel movement today nor has she had a regular diet this admission. She denies palpitations, syncopal event this year, chest pain, PAUL, chronic cough, or vision changes. PMH: Crohn's disease, hypertension, GERD, and substance abuse PSH: Appendectomy, bowel resection, , cholecystectomy Social: , local resident. Denies any tobacco, alcohol, or illicit drug use currently. ROS: 12 point ROS negative except as noted above. PE: Well-developed, well-nourished female in no acute distress. Hearing grossly intact, mood and affect appropriate. Heart regular rate and rhythm with no murmurs appreciated. Lungs are clear. Belly is soft with normal bowel sounds. Minimal tenderness to palpation. Able to ambulate appropriately. Past Medical History Past Medical History: GERD and Hypertension Past Surgical History Surgical History: Abdominal Surgery, Appendectomy, Bowel Resection, and Cholecystectomy Family History Family Medical History: Diabetes Mellitus, Cancer, [place], Coronary Artery Disease and Hypertension Social History Does patient currently use any type of tobacco product: No Have you used tobacco products in the last 12 months: No Type of Tobacco Use: None Does any household member use tobacco: No Alcohol Use: None Drug Use: None Medications Home Medications: bee pollen Allergy (Severe, Verified 03/31/25 10:27) ANAPHALEXIS REACTION adhesive tape (tape (adhesive)) Allergy (Verified 03/31/25 10:27) bee venom protein (honey bee) Allergy (Verified 03/31/25 10:27) ANAPHALEXIS REACTION latex Allergy (Verified 03/31/25 10:27) shellfish derived Allergy (Verified 03/31/25 10:27) ANAPHALEXIS REACTION Physical Exam Vital Signs: Vital Signs Temperature 98.0 F Temperature 97.9 F Pulse Rate [Apical] 59 Pulse Rate [Apical] 41 Respiratory Rate 19 Respiratory Rate 18 Blood Pressure [Right Arm] 130/73 Blood Pressure [Right Arm] 148/72 O2 Sat by Pulse Oximetry 96 O2 Sat by Pulse Oximetry 97 Plan (1) Sinus bradycardia: Status: Acute Narrative Support Text: Problem is recurrent. Relatively asymptomatic. Declines referral for pacemaker at this time. Is willing to do an outpatient cardiology evaluation. She is not on any medications that should be adding to the problem. Suspect it is combination of her genetics and long-term opiate misuse. Disucssed with primary team and will advance diet and see when she can have a BM. Likey home in the next 24hrs. (2) SBO (small bowel obstruction): Status: Acute (3) Crohn disease: Status: Acute Qualifiers: Gastrointestinal tract location: small and large intestine Digestive disease complication type: with intestinal obstruction Qualified Code(s): K50.812 - Crohn's disease of both small and large intestine with intestinal obstruction
[2025-04-19 05:02] LABS: MEAN PLATELET VOLUME 9.9 fL (7.4-11.0); RED CELL DISTRIBUTION WIDTH 17.4 % (11.6-16.5)
[2025-04-19 05:20] LABS: COR CA(FOR HYPOALB) 8.7 mg/dL (8.5-10.1); CREATININE 1.03 mg/dL (0.55-1.02); eGFR NON BLACK RACES > 60 (>60)
[2025-04-19] MEDS ORDERED: CONSULT PHARMACY - POTASSIUM & MAGNESIUM XX SCH (08:00)
[2025-04-19 09:58] VITALS: BP 149/83; PULSE 47; RESP 18; TEMP 98.4; O2SAT 97
[2025-04-19] MEDS ORDERED: K-DUR TAB 20 MEQ PO ONE (10:00)
--- NOTE | 2025-04-19 15:52 | NOTE.SOAP ---
Soap Note Note for Day of Date of Exam: 04/19/25 Subjective Data Subjective Data: Patient tolerated 3 meals with a regular diet. Has continued to pass flatus with improvement of her abdominal discomfort. Has had 1 solid bowel movement this morning. She does want a go home. Labs and vitals overall stable with continued bradycardia. She is agreeable to follow-up with cardiology as an outpatient. Objective Data Objective Data: Well-developed, well-nourished female in no acute distress. Heart regular rate and rhythm, belly soft and nontender with bowel sounds present, lungs are clear with strong speech. Assessment Assessment: Sinus bradycardia SBO Crohn disease Mild anemia of chronic disease Plan Plan: Agree with discharge home today. Will need to follow-up with cardiology and PCP as outpatient. No medication changes today.
== END 2025-04-19 10:10 | disposition home or self-care (01) ==
LOC: ER 09:59 → MED/SURG 09:59
PROVIDERS: ADMIT Surgery; ATTEND Surgery
DX: R06.02 Shortness of breath; R42 Dizziness and giddiness; I10 Essential (primary) hypertension; K56.690 Other partial intestinal obstruction; K21.9 Gastro-esophageal reflux disease without esophagitis; R00.1 Bradycardia, unspecified; Z79.899 Other long term (current) drug therapy; E83.42 Hypomagnesemia; R10.84 Generalized abdominal pain; D72.828 Other elevated white blood cell count; R60.0 Localized edema; Z90.49 Acquired absence of other specified parts of digestive tract; K50.812 Crohn's disease of both small and large intestine with intestinal obstruction